=== PATIENT | female | born 1940 | race Hispanic/Latino ===

== ENCOUNTER 2019-02-27 10:39 | Inpatient (IN) | payer OTHER ==
[2019-02-27 11:07] LABS: Urine Blood TRACE (NEG); Urine Glucose NEGATIVE (NEG); Urine Protein NEGATIVE (NEG); Urine Specific Gravity 1.015 (1.005-1.030)
[2019-02-27 11:13] LABS: Urine Bacteria >50 /HPF (<20); Urine Culture Reflex Order NOT NEEDED
[2019-02-27] MEDS ORDERED: NA CHLORIDE 0.9% 500 ML ONE (11:15)
[2019-02-27 11:28] LABS: Absolute Lymphocytes (CBC) 2.2 K/uL (0.7-4.9); Basophils % 0.5 % (0-1.3); Eosinophils % 3.4 % (0-4.4); Hematocrit 29.8 % (36.0-45.0); Lymphocytes % 13.7 % (15.3-44.8); MPV 8.9 fL (7.6-11.3); Monocytes % 8.7 % (3.3-12.3); RBC Red Blood Cell Count 3.54 M/uL (3.86-4.86)
[2019-02-27 11:42] LABS: Potassium 3.7 mmol/L (3.5-5.1)
[2019-02-27] MEDS ORDERED: CEFTRIAXONE/SWI 1gm 1 GM/10 ML SYR ONE (11:50)
--- NOTE | 2019-02-27 12:16 | RAD REPORT ---
EXAM DESCRIPTION: USExtremjimbo Venous Uni Ltd02/27/2019 11:48 am CLINICAL HISTORY: left leg swelling. COMPARISON: None. FINDINGS: Left common femoral, superficial femoral, popliteal and posterior tibial veins are compre ssible and demonstrate augmentation. Doppler demonstrates good flow. Several left inguinal lymph nodes. The largest measures 2.4 centimeter short axis IMPRESSION: No evidence of deep venous thrombosis involving the left lower extremity. Left inguinal lymphadenopathy. Followup ultrasound in 1 month is recommended to assess stability/reso lution
--- NOTE | 2019-02-27 12:17 | RAD REPORT ---
EXAM DESCRIPTION: Dane Single View02/27/2019 11:27 am CLINICAL HISTORY: cough COMPARISON: none FINDINGS: The lungs appear clear of acute infiltrate. The heart is normal size IMPRESSION: No acute abnormalities displayed
--- NOTE | 2019-02-27 13:16 | EDPHYS ---
Physician Documentation [facility] Name: Dot Berrios Age: 78 yrs Sex: Female : 1940 Arrival Date: 02/27/2019 Time: 10:46 Bed 7 Private MD: ED Physician Daryl Bernstein HPI: 02/27 10:48 This 78 yrs old Female presents to ER via Unassigned with complaints of fever. rn 10:48 The patient reports fever, not measured (subjective). Onset: The symptoms/episode rn began/occurred today. Modifying factors: there are no obvious modifying factors. Severity of symptoms: At their worst the symptoms were moderate in the emergency department the symptoms have improved. The patient has experienced similar episodes in the past. Reports woke up today weak, foul smelling urine, a little confused. Too weak to sit up in bed. Admitted 3 weeks ago in [place] for similar symptoms, told had UTI, got 3 days of IV rocephin and no abx orally. Reports mild headache, no focal neurological problems, no chest pain/sob. + cough. No abd pain/vomiting/diarrhea. NO trauma. . Historical: - Allergies: 11:27 No Known Allergies; sv - Home Meds: 11:27 levothyroxine 75 mcg tab 1 tab once daily [Active]; Norvasc 5 mg Oral tab 1 tab once sv daily [Active]; captopril 25 mg Oral tab daily [Active]; B-Complex oral oral [Active]; metformin 500 mg Oral tr24 twice a day [Active]; - PMHx: 11:27 UTI; Diabetes - NIDDM; Hypertension; sv - PSHx: 11:27 hip repair; sv - Immunization history:: Adult Immunizations up to date. - Social history:: Smoking status: Patient/guardian denies using tobacco. - Family history:: not pertinent. - Ebola Screening: : No symptoms or risks identified at this time. - Hospitalizations: : Patient was recently seen at. ROS: 10:48 Constitutional: + fever Eyes: Negative for injury, pain, redness, and discharge, ENT: rn Negative for injury, pain, and discharge, Neck: Negative for injury, pain, and swelling, Cardiovascular: Negative for chest pain, palpitations, and edema, Respiratory: + cough Abdomen/GI: Negative for abdominal pain, nausea, vomiting, diarrhea, and constipation, Back: Negative for injury and pain, MS/Extremity: Negative for injury and deformity, Skin: Negative for injury, rash, and discoloration, Neuro: + headache and generalized weakness Exam: 10:48 Constitutional: This is a well developed, well nourished patient who is awake, alert rn Head/Face: Normocephalic, atraumatic. Eyes: Pupils equal round and reactive to light, extra-ocular motions intact. Lids and lashes normal. Conjunctiva and sclera are non-icteric and not injected. Cornea within normal limits. Periorbital areas with no swelling, redness, or edema. ENT: MMM Neck: Trachea midline, no thyromegaly or masses palpated, and no cervical lymphadenopathy. Supple, full range of motion without nuchal rigidity, or vertebral point tenderness. No Meningismus. Cardiovascular: Regular rate and rhythm. No pulse deficits. Respiratory: Lungs have equal breath sounds bilaterally, clear to auscultation Abdomen/GI: soft, non-tender MS/ Extremity: Pulses equal, no cyanosis. Neurovascular intact. Full, normal range of motion. + LLE swelling and erythema with blanching (daughter states not too far from baseline) Neuro: Awake and alert, GCS 15, oriented to person, place, time, and situation. Moves all 4 extremities with equal strength. Vital Signs: 10:51 BP 123 / 52; Pulse 94; Resp 24; Temp 98.4; Pulse Ox 95% ; Weight 68.95 kg; Height 5 ft. sv 4 in. (162.56 cm); Pain 0/10; 11:39 BP 119 / 59; Pulse 90; Resp 25; Pulse Ox 96% on R/A; sv 12:31 BP 125 / 58; Pulse 89; Resp 22; Pulse Ox 97% ; ss 13:03 BP 121 / 52; Pulse 85; Resp 21; Pulse Ox 96% ; sv 14:12 BP 129 / 67; Pulse 84; Resp 20; Pulse Ox 96% ; sv 10:51 Body Mass Index 26.09 (68.95 kg, 162.56 cm) sv MDM: 10:46 Patient medically screened. rn 10:52 ED course: Daughter gave tylenol prior to arrival.. rn 11:14 ED course: Pt reports stopped taking sotalol prior to surgery per recommendations, and rn hasn't taken since February 07.. 13:13 Differential diagnosis: viral Infection, bacterial infection, UTI. Data reviewed: vital rn signs, nurses notes, lab test result(s), radiologic studies, doppler, plain films. Counseling: I had a detailed discussion with the patient and/or guardian regarding: the historical points, exam findings, and any diagnostic results supporting the discharge/admit diagnosis, lab results, radiology results, the need for further work-up and treatment in the hospital. Admission orders: after a detailed discussion of the patient's condition and case, the admit orders are written by me. ED course: Pt with delirium due to UTI, weakness, will admit for IV abx. U/S of leg negative. 2 family members state erythema of leg is actually better than has been in past. Neg cxr.. 02/27 10:48 Order name: CBC with Diff 02/27 10:48 Order name: Basic Metabolic Panel 02/27 10:48 Order name: Urine Culture 02/27 10:48 Order name: Urine Microscopic Only 02/27 10:48 Order name: Flu; Complete Time: 12:35 02/27 10:48 Order name: Strep; Complete Time: 12:35 02/27 10:48 Order name: Procalcitonin; Complete Time: 12:35 02/27 10:48 Order name: Blood Culture Adult (2) 02/27 10:49 Order name: CBC with Automated Diff; Complete Time: 11:52 [facility] 02/27 10:49 Order name: Basic Metabolic Panel; Complete Time: 11:52 EDPA 02/27 10:50 Order name: Urine Culture [facility] 02/27 10:50 Order name: Urine Microscopic Only; Complete Time: 11:27 EDPA 02/27 10:55 Order name: Lactate; Complete Time: 11:52 sv 02/27 10:59 Order name: Urine Dipstick--Ancillary (enter results); Complete Time: 11:27 eb 02/27 10:48 Order name: IV Start; Complete Time: 10:56 02/27 10:48 Order name: Urine Dipstick-Ancillary (obtain specimen); Complete Time: 10:56 02/27 10:48 Order name: XRAY Chest (1 view); Complete Time: 12:35 02/27 10:48 Order name: Glucose Level; Complete Time: 11:19 rn 02/27 10:52 Order name: Extremity Venous Uni Ltd US; Complete Time: 12:35 rn 02/27 11:18 Order name: Glucose, Ancillary Testing; Complete Time: 11:27 EDMS 02/27 11:19 Order name: Glucose, Ancillary Testing EDMS 02/27 12:14 Order name: Throat Culture EDMS Administered Medications: 11:18 Drug: NS 0.9% 500 ml Route: IV; Rate: bolus; Site: left hand; sv 12:15 Follow up: Response: No adverse reaction; IV Status: Completed infusion; IV Intake: sv 500ml 11:37 Drug: Rocephin - (cefTRIAXone) 1 grams Route: IVPB; Infused Over: 30 mins; Site: left sv hand; 11:39 Follow up: Response: No adverse reaction; IV Status: Completed infusion; IV Intake: 10mlsv Point of Care Testing: Blood Glucose: 11:00 Blood Glucose: 118 mg/dL; sv Ranges: Critical Glucose Levels:Adult <50 mg/dl or >400 mg/dl <40 mg/dl or >180 mg/dl Disposition: 02/27/19 13:15 Hospitalization ordered by Saud Ryder for Inpatient Admission. Preliminary diagnosis are Urinary tract infection, site not specified, Delirium due to known physiological condition, Weakness. - Bed requested for Telemetry/MedSurg (Inpatient). - Status is Inpatient Admission. sv - Condition is Stable. - Problem is new. - Symptoms have improved. UTI on Admission? Yes Signatures: Dispatcher [employer] EDPA Teri Hooks RN RN sv Nieto, Roman, MD MD rn Aguilar, Jose, RN RN ja1 Corrections: (The following items were deleted from the chart) 14:11 13:15 Hospitalization Ordered by Saud Ryder MD for Inpatient Admission. Preliminary ja1 diagnosis is Urinary tract infection, site not specified; Delirium due to known physiological condition; Weakness. Bed requested for Telemetry/MedSurg (Inpatient). Status is Inpatient Admission. Condition is Stable. Problem is new. Symptoms have improved. UTI on Admission? Yes. rn 14:28 14:11 02/27/2019 13:15 Hospitalization Ordered by Saud Ryder MD for Inpatient sv Admission. Preliminary diagnosis is Urinary tract infection, site not specified; Delirium due to known physiological condition; Weakness. Bed requested for Telemetry/MedSurg (Inpatient). Status is Inpatient Admission. Condition is Stable. Problem is new. Symptoms have improved. UTI on Admission? Yes. ja1
--- NOTE | 2019-02-27 13:16 | ER ---
Nurse's Notes [facility] Name: Dot Berrios Age: 78 yrs Sex: Female : 1940 Arrival Date: 02/27/2019 Time: 10:46 Bed 7 Private MD: Diagnosis: Urinary tract infection, site not specified;Delirium due to known physiological condition;Weakness Presentation: 02/27 10:36 Presenting complaint: EMS states: called out for fever, upon EMS arrival pt had foul sv smelling urine and is incontinent. Pt on immunotherapy for LLE melanoma and has hx of UTIs. Transition of care: patient was not received from another setting of care. Onset of symptoms was February 27, 2019. Risk Assessment: Do you want to hurt yourself or someone else? Patient reports no desire to harm self or others. Initial Sepsis Screen: Does the patient meet any 2 criteria? No. Patient's initial sepsis screen is negative. Does the patient have a suspected source of infection? No. Patient's initial sepsis screen is negative. Care prior to arrival: Medication(s) given: Normal saline infusion, 100 mls IV initiated. 22 GA, in the left hand. 10:36 Method Of Arrival: EMS: [facility] sv 10:36 Acuity: STEPHANI 3 sv Historical: - Allergies: 11:27 No Known Allergies; sv - Home Meds: 11:27 levothyroxine 75 mcg tab 1 tab once daily [Active]; Norvasc 5 mg Oral tab 1 tab once sv daily [Active]; captopril 25 mg Oral tab daily [Active]; B-Complex oral oral [Active]; metformin 500 mg Oral tr24 twice a day [Active]; - PMHx: 11:27 UTI; Diabetes - NIDDM; Hypertension; sv - PSHx: 11:27 hip repair; sv - Immunization history:: Adult Immunizations up to date. - Social history:: Smoking status: Patient/guardian denies using tobacco. - Family history:: not pertinent. - Ebola Screening: : No symptoms or risks identified at this time. - Hospitalizations: : Patient was recently seen at. Screenin:28 Abuse screen: Denies threats or abuse. Denies injuries from another. Nutritional sv screening: No deficits noted. Tuberculosis screening: No symptoms or risk factors identified. Fall Risk None identified. Assessment: 10:36 General: Appears in no apparent distress. comfortable, well developed, Behavior is sv calm, cooperative, appropriate for age. General: Reports fever for 12-24 hours. Pain: Denies pain. Neuro: Level of Consciousness is awake, alert, obeys commands, Oriented to person, place, time, situation, Moves all extremities. Full function Speech is normal. Respiratory: Respiratory effort is even, unlabored, Respiratory pattern is regular, symmetrical. : Parent/caregiver report the patient having incontinence which is her normal. Derm: Skin is pink, warm \T\ dry. 11:39 Reassessment: Patient appears in no apparent distress at this time. No changes from sv previously documented assessment. Ultrasound at the bedside. 13:30 Reassessment: Patient appears in no apparent distress at this time. No changes from sv previously documented assessment. Patient and/or family updated on plan of care and expected duration. Pain level reassessed. Patient is alert, oriented x 3, equal unlabored respirations, skin warm/dry/pink. 14:15 Reassessment: Patient appears in no apparent distress at this time. No changes from sv previously documented assessment. Patient and/or family updated on plan of care and expected duration. Pain level reassessed. Patient is alert, oriented x 3, equal unlabored respirations, skin warm/dry/pink. Vital Signs: 10:51 BP 123 / 52; Pulse 94; Resp 24; Temp 98.4; Pulse Ox 95% ; Weight 68.95 kg; Height 5 ft. sv 4 in. (162.56 cm); Pain 0/10; 11:39 BP 119 / 59; Pulse 90; Resp 25; Pulse Ox 96% on R/A; sv 12:31 BP 125 / 58; Pulse 89; Resp 22; Pulse Ox 97% ; ss 13:03 BP 121 / 52; Pulse 85; Resp 21; Pulse Ox 96% ; sv 14:12 BP 129 / 67; Pulse 84; Resp 20; Pulse Ox 96% ; sv 10:51 Body Mass Index 26.09 (68.95 kg, 162.56 cm) sv ED Course: 10:36 Maintain EMS IV. Dressing intact. Site clean \T\ dry. Gauge \T\ site: 22G left hand. sv 10:45 Straight cath inserted, using sterile technique, 16 Fr. Specimen obtained. Returned sv clear yellow urine. Patient tolerated well. 10:46 Patient arrived in ED. rn 10:46 Daryl Bernstein MD is Attending Physician. rn 10:53 Teri Hooks RN is Primary Nurse. sv 11:00 Initial lab(s) drawn, by me, sent to lab. First set of blood cultures drawn by me. sv 11:00 Arm band placed on. sv 11:00 Patient has correct armband on for positive identification. Placed in gown. Bed in low sv position. Call light in reach. Side rails up X2. Adult w/ patient. desk monitor on. Pulse ox on. NIBP on. Door closed. Head of bed elevated. 11:15 Second set of blood cultures drawn by me, Flu and/or RSV swab sent to lab. Strep swab sv sent to lab. 11:19 Urine Culture Sent. sv 11:19 Urine Microscopic Only Sent. sv 11:19 Basic Metabolic Panel Sent. sv 11:19 CBC with Diff Sent. sv 11:23 Triage completed. sv 11:28 XRAY Chest (1 view) In Process Unspecified. EDMS 11:30 Awaiting lab results, Awaiting radiology results. sv 11:32 Glucose, Ancillary Testing Sent. sv 11:47 Ultrasound completed. Patient tolerated well. sg3 11:48 Extremity Venous Uni Ltd US In Process Unspecified. EDMS 12:40 Throat Culture Sent. sv 13:15 Saud Ryder MD is Hospitalizing Provider. rn 13:22 Awaiting bed assignment. sv 14:17 No provider procedures requiring assistance completed. Patient admitted, IV remains in sv place. intact. Administered Medications: 11:18 Drug: NS 0.9% 500 ml Route: IV; Rate: bolus; Site: left hand; sv 12:15 Follow up: Response: No adverse reaction; IV Status: Completed infusion; IV Intake: sv 500ml 11:37 Drug: Rocephin - (cefTRIAXone) 1 grams Route: IVPB; Infused Over: 30 mins; Site: left sv hand; 11:39 Follow up: Response: No adverse reaction; IV Status: Completed infusion; IV Intake: 10mlsv Point of Care Testing: Blood Glucose: 11:00 Blood Glucose: 118 mg/dL; sv Ranges: Intake: 11:39 IV: 10ml; Total: 10ml. sv 12:15 IV: 500ml; Total: 510ml. sv Outcome: 13:15 Decision to Hospitalize by Provider. rn 14:18 Admitted to Tele accompanied by tech, family with patient, via stretcher, room 425, sv with chart, Report called to Ricardo Sin RN 14:18 Condition: stable 14:18 Instructed on the need for admit. 14:28 Patient left the ED. sv Signatures: Dispatcher [employer] Teri Schaefer RN RN sv Nieto, Roman, MD MD rn Smirch, Shelby, RN RN Odalis Goldsmith [facility]
[2019-02-27 14:25] VITALS: BMI 26.1
[2019-02-27] MEDS ORDERED: ONDANSETRON 4 MG/2 ML VIAL IV PRN (14:45)
[2019-02-27] MEDS ORDERED: D50W 25 GM/50 ML SYRINGE IV PRN (14:45)
[2019-02-27] MEDS ORDERED: GLUCAGON 1 MG/VIAL IM PRN (14:45)
[2019-02-27] MEDS: ENOXAPARIN 40 MG/0.4 ML SQ SCH (16:13)
[2019-02-27] MEDS: NA CHLORIDE 0.9% 1,000 ML IV SCH (16:14)
[2019-02-27] MEDS: VANCOMYCIN 1.25 GM in NA CHLORIDE 0.9% 250 ML IVPB SCH (16:14)
[2019-02-27] MEDS: INSULIN -REGULAR HUMAN 50 UNIT/0.5 ML ML SQ SCH ×2 (16:16→21:00)
[2019-02-27] MEDS ORDERED: POTASSIUM CL SA 10 MEQ TAB PO ONE (18:12)
--- NOTE | 2019-02-27 20:10 | EKG ---
Test Date: 2019-02-27 Test Time: 11:14:50 Switchboard Mechanic: SOCORRO MEASUREMENT RESULTS: Intervals: Rate: 92 NJ: 148 QRSD: 88 QT: 374 QTc: 462 [place]: P: 63 NJ: 148 QRS: 105 T: 58 INTERPRETIVE STATEMENTS: Normal sinus rhythm Possible Right ventricular hypertrophy Abnormal ECG No previous ECG available for comparison Electronically Signed On 02-27-19 20:08:31 CDT by David Bragg
[2019-02-27] MEDS ORDERED: VANCOMYCIN 1.5 GM in NA CHLORIDE 0.9% 500 ML IVPB SCH (21:00)
[2019-02-27] MEDS ORDERED: CEFEPIME 2 GM in NA CHLORIDE 0.9% 100 ML IV SCH (21:00)
[2019-02-27] MEDS: AMLODIPINE 5 MG TAB PO SCH (21:19)
[2019-02-27] MEDS: CEFEPIME/SWI 2gm 2 GM/20 ML SYR IVP SCH (21:20)
--- NOTE | 2019-02-28 01:46 | HP ---
Date of Admission: 02/27/2019 Chief Complaint: Altered mental status, UTI. Code Status: Full. History Of Present Illness: The patient is a 78-year-old female with past medical history of hypertension; diabetes, non-insulin requiring; melanoma with recent immune therapy and surgery with recent PET scan showing improvement. The patient's melanoma has spread to the lymph nodes. The patient is visiting from [place], was found to have acute onset of altered mental status, foul smelling urine, generalized weakness, some cough with clear sputum production and some nausea. No vomiting. The patient did have some fever and chills. The patient's workup revealed white blood cell count of 16,000. Her lactate was negative. There were no signs of sepsis. Her electrolytes were normal. UA was positive. The patient was then started on Rocephin and referred for admission. The patient's symptoms were constant, moderate, progressively worsening. When seen in the ER, she was awake, alert, oriented x2, some mild distress. Elderly female, ill appearing. Past Medical History: Hypertension, diabetes mellitus type 2. 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 Surgical History: The patient has had resection of a smaller melanoma on the foot and left hip replacement. Medications: List reviewed. Allergies: NO KNOWN DRUG ALLERGIES. Social History: The patient has good social support. Lives out of town. Currently visiting her son. Denies any tobacco use, alcohol use. Does not require any assistive ambulatory devices. Does use a cane or walker for longer distances. Family History: The patient denies any significant family history. No history of premature coronary artery disease. Review of Systems: Ten-point system reviewed, negative except as per HPI. Physical Examination: Vital Signs: Blood pressure 123/52, pulse 94, respirations 24, temperature 98.4 , O2 95% on room air. General: Awake, alert, oriented x2. Mildly confused elderly female, ill appearing. HEENT: Normocephalic, atraumatic. PERRLA. EOMI. Dry mucous membranes. Oropharynx is clear. Conjunctivae are anicteric. Poor dentition. Neck: Supple. No JVD. Trachea midline. CV: S1, S2. Regular rate and rhythm. Peripheral pulses present. Respiratory: Moving air well bilaterally. No wheezing or stridor. No use of accessory muscles. Gastrointestinal: Abdomen is soft. Minimal tenderness in the epigastric region. No rebound or guarding. Positive bowel sounds. Extremities: No clubbing, cyanosis, or edema. No calf tenderness. Neuro: Cranial nerves 2 through 12 intact grossly. No focal neurological deficit. Speech is normal. Skin: The patient has left foot bandaged with blood soaking through. Has multiple sites of melanoma around the left lower extremity. Psych: Unable to properly assess due to patient's medical condition. Laboratory Data: UA: Trace blood, positive nitrite, 3+ leukocyte esterase, 10 to 20 rbc's, greater than 50 wbc, greater than 50 bacteria. Sodium 140, potassium 2.7, chloride 107, CO2 25, BUN 13, creatinine 0.66, glucose 97, lactate 0.9, calcium 8.8, procalcitonin less than 0.05. WBC 16.4, H and H 9.9 and 29.8, platelets 347, neutrophils 73%. Blood cultures pending. Strep screen is negative. Influenza screen also negative. Imaging Studies: Chest x-ray personally reviewed shows no acute abnormalities. Doppler venous study shows no DVT in the left lower extremity. Assessment And Plan: A 78-year-old female with: 1. Acute metabolic encephalopathy, likely due to urinary tract infection, improving. 2. Generalized weakness. We will obtain PT consultation. 3. Acute cystitis with hematuria. We will start on IV antibiotics. We will obtain cultures. 4. Left lower extremity cellulitis. The patient has erythema, warm to touch, likely related to her wounds on the left foot. We will have nurse re-dress the wound. Obtain cultures including wound cultures if there is any drainage. Elevate, ice as needed. 5. Normocytic normochromic anemia, likely anemia of chronic disease. 6. Diabetes mellitus type 2, non-insulin requiring without complications. We will continue with sliding scale insulin and monitor Accu-Cheks. 7. Essential hypertension. We will resume home medications as appropriate. 8. History of recurrent metastatic melanoma, undergoing immune therapy. Recent PET scan showed improvement in lesions. 9. Deep venous thrombosis prophylaxis with Lovenox. Plan: Admit the patient to Med-Surg, place as inpatient. Length of stay greater than 2 midnights. ELENA Voice ID: [id number] [facility]
[2019-02-28 04:28] LABS: Absolute Lymphocytes (CBC) 2.4 K/uL (0.7-4.9); Basophils % 1.2 % (0-1.3); Eosinophils % 5.1 % (0-4.4); Hematocrit 28.5 % (36.0-45.0); Lymphocytes % 20.5 % (15.3-44.8); MPV 9.3 fL (7.6-11.3); Monocytes % 10.6 % (3.3-12.3); RBC Red Blood Cell Count 3.37 M/uL (3.86-4.86)
[2019-02-28 05:00] LABS: ALT/SGPT 13 U/L (12-78); AST/SGOT 20 U/L (15-37); Albumin 2.6 g/dL (3.4-5.0); Alkaline Phosphatase 68 U/L (45-117); BUN Blood Urea Nitrogen 8 mg/dL (7-18); Bicarbonate 22 mmol/L (21-32); Bilirubin Total 0.3 mg/dL (0.2-1.0); Glucose Level 86 mg/dL (74-106); Potassium 3.9 mmol/L (3.5-5.1); Protein, Total 6.5 g/dL (6.4-8.2); Sodium Level 138 mmol/L (136-145)
[2019-02-28] MEDS: LEVOTHYROXINE SOD 0.075 MG TAB PO SCH (05:13)
[2019-02-28] MEDS: NA CHLORIDE 0.9% 1,000 ML IV SCH ×3 (05:15→23:10)
[2019-02-28] MEDS ORDERED: MAGNESIUM SULFATE 1 gm IVPB 1 GM/100 ML BAG IV ONE (05:50)
[2019-02-28] MEDS ORDERED: POTASSIUM CL SA 10 MEQ TAB PO ONE (05:51)
[2019-02-28] MEDS: INSULIN -REGULAR HUMAN 50 UNIT/0.5 ML ML SQ SCH ×4 (07:30→21:00)
[2019-02-28] MEDS: CAPTOPRIL 25 MG TABLET PO SCH (08:48)
[2019-02-28] MEDS: ENOXAPARIN 40 MG/0.4 ML SQ SCH (08:48)
[2019-02-28] MEDS: CEFEPIME/SWI 2gm 2 GM/20 ML SYR IVP SCH ×2 (09:01→21:39)
[2019-02-28] MEDS: VANCOMYCIN 1.25 GM in NA CHLORIDE 0.9% 250 ML IVPB SCH (10:13)
--- NOTE | 2019-02-28 20:32 | PN ---
Date of Progress Note: 02/28/2019 Subjective: Patient seen and examined. Chart reviewed and case discussed with RN. Family at the [facility]. Patient's condition has improved overnight. No specific complaints. Her mental status has i mproved. Medications: List reviewed. Physical Examination: Vital Signs: Temperature 97.1, heart rate 91, blood pressure 154/64, respirations 19, O2 of 96% on r oom air. General: Awake, alert, oriented x3, not in any acute distress, elderly female. CV: S1, S2. Regular rate and rhythm. Peripheral pulses present. Respiratory: Moving air well bilaterally. No wheezing or stridor. Gastrointestinal: Abdomen is soft, nontender, nondistended. Positive bowel sounds. Extremities: No clubbing, cyanosis. Patient has edema of the left lower extremity. Skin: Erythema of the left lower extremity with some warmth to touch. Patient also has large cancer ous lesions on her legs covered with Vaseline gauze. Neurologic: Nonfocal. Cranial nerves 2-12 intact grossly. Laboratory Data: Sodium 138, potassium 3.9, chloride 108, CO2 of 22, BUN 8, creatinine 0.48, glucose 86, calcium 8.5, magnesium 1.6, albumin 2.6. WBC 11.9, H and H 9.4 and 28.5, platelets 328, neutrop hils 62%. Blood cultures are pending. Urine cultures growing out gram-negative rods. Assessment And Plan: A 78-year-old female with: 1.Acute metabolic encephalopathy, likely secondary to urinary tract infection, improved. 2.Generalized weakness improving. We will consult PT. 3.Acute cystitis with hematuria. We will continue IV antibiotics. Cultures are growing out gram-ne gative rods. 4.Left lower extremity cellulitis, improving. Follow up on blood cultures elevate. 5.Normocytic normochromic anemia, likely anemia of chronic disease. 6.Hypomagnesemia. We will replace and monitor. 7.Diabetes mellitus type 2, non-insulin requiring without complications. We will continue sliding s fadia insulin and monitor Accu-Cheks. 8.Essential hypertension, stable. 9.History of metastatic melanoma of the left lower extremity, currently undergoing immune therapy. Follows at [facility]. 10.Deep venous thrombosis prophylaxis with Lovenox. Plan: Continue IV antibiotics. White blood cell count is improving. We will follow up on culture, ID and sensitivities. Likely discharge in the next 24-48 hours depending on clinical response. SA/MODL Voice ID: [id number] Report ID: [id number]
[2019-02-28] MEDS: AMLODIPINE 5 MG TAB PO SCH (21:39)
[2019-03-01] MEDS: VANCOMYCIN 1.25 GM in NA CHLORIDE 0.9% 250 ML IVPB SCH ×2 (03:29→22:55)
[2019-03-01] MEDS: ACETAMINOPHEN 500 MG TAB PO PRN ×3 (03:53→17:56)
[2019-03-01 05:09] LABS: Absolute Lymphocytes (CBC) 2.9 K/uL (0.7-4.9); Basophils % 0.3 % (0-1.3); Eosinophils % 6.9 % (0-4.4); Hematocrit 30.4 % (36.0-45.0); Lymphocytes % 30.2 % (15.3-44.8); MPV 9.4 fL (7.6-11.3); Monocytes % 10.6 % (3.3-12.3); RBC Red Blood Cell Count 3.58 M/uL (3.86-4.86)
[2019-03-01 05:18] LABS: ALT/SGPT 13 U/L (12-78); AST/SGOT 19 U/L (15-37); Albumin 2.7 g/dL (3.4-5.0); Alkaline Phosphatase 69 U/L (45-117); BUN Blood Urea Nitrogen 7 mg/dL (7-18); Bicarbonate 23 mmol/L (21-32); Bilirubin Total 0.3 mg/dL (0.2-1.0); Glucose Level 103 mg/dL (74-106); Magnesium 1.8 mg/dL (1.8-2.4); Protein, Total 6.7 g/dL (6.4-8.2); Sodium Level 139 mmol/L (136-145)
[2019-03-01] MEDS ORDERED: MAGNESIUM SULFATE 1 gm IVPB 1 GM/100 ML BAG IV ONE (06:03)
[2019-03-01] MEDS: LEVOTHYROXINE SOD 0.075 MG TAB PO SCH (06:23)
[2019-03-01] MEDS: NA CHLORIDE 0.9% 1,000 ML IV SCH ×2 (06:45→17:47)
[2019-03-01] MEDS: INSULIN -REGULAR HUMAN 50 UNIT/0.5 ML ML SQ SCH ×4 (07:30→20:15)
[2019-03-01] MEDS: ENOXAPARIN 40 MG/0.4 ML SQ SCH (09:37)
[2019-03-01] MEDS: CAPTOPRIL 25 MG TABLET PO SCH (09:37)
[2019-03-01] MEDS: CEFEPIME/SWI 2gm 2 GM/20 ML SYR IVP SCH ×2 (09:38→21:44)
[2019-03-01] MEDS: AMLODIPINE 5 MG TAB PO SCH (21:44)
--- NOTE | 2019-03-01 22:17 | P.PN ---
Subjective Date of Service: 03/01/19 Patient seen and examined at bedside. Daughter at bedside. Chart reviewed and case discussed with nursing staff. Patient in no acute distress. Sitting up in bed, eating. Reports improved appetite. No concerns complaints this morning. States that she is doing better overall. Patient did stand with physical therapy, melanotic lesion left lower extremity noted to profusely bleed when patient stood up to work with physical therapy. Review of Systems 10-point ROS is otherwise unremarkable Physical Examination - Vital Signs Temperature: 97.2 F Blood Pressure: 118/66 Pulse: 75 Respirations: 18 Pulse Ox (%): 97 - Physical Exam General: Alert, In no apparent distress, Oriented x3 HEENT: Atraumatic, PERRLA, EOMI Neck: Supple, JVD not distended Respiratory: Clear to auscultation bilaterally, Normal air movement Cardiovascular: Regular rate/rhythm, Normal S1 S2 Gastrointestinal: Normal bowel sounds, No tenderness Musculoskeletal: No tenderness Integumentary: No rashes, Other (Melanotic lesions noted on left lower extremity , fresh red blood noted. Cellulitis of left lower extremity) Neurological: Normal speech, Normal tone, Normal affect Lymphatics: No axilla or inguinal lymphadenopathy - Studies Microbiology Data (last 24 hrs): 02/27/19 11:00 Throat Culture & Sensitivity - Final 02/27/19 11:00 Catheterized Urine [place] Count - Final >100,000 CFU/ML. 02/27/19 11:00 Catheterized Urine - Final Escherichia Coli Assessment And Plan - Plan A 78-year-old female with: 1. Acute metabolic encephalopathy, likely secondary to urinary tract infection , resolved. 2. Generalized weakness improving. Working well with physical therapy 3. Acute cystitis with hematuria. We will continue IV antibiotics. Cultures positive for E. coli, sensitive to oral antibiotics. 4. Left lower extremity cellulitis, improving. Wound cultures positive for Proteus mirabilis. Blood cultures negative. 5. Normocytic normochromic anemia, likely anemia of chronic disease. 6. Hypomagnesemia. We will replace and monitor. 7. Diabetes mellitus type 2, non-insulin requiring without complications. We will continue sliding scale insulin and monitor Accu-Cheks. 8. Essential hypertension, stable. 9. History of metastatic melanoma of the left lower extremity, currently undergoing immune therapy. Follows at [facility]. 10. Deep venous thrombosis prophylaxis with Lovenox. Plan: Continue IV antibiotics, will switch to oral antibiotics on discharge. White blood cell count is improving. We will follow up on culture, ID and sensitivities. Likely discharge in the next 24 hours depending on clinical response.
[2019-03-02] MEDS: LEVOTHYROXINE SOD 0.075 MG TAB PO SCH (06:34)
[2019-03-02 07:00] LABS: Absolute Lymphocytes (CBC) 2.5 K/uL (0.7-4.9); Hematocrit 29.2 % (36.0-45.0); Lymphocytes % 30.3 % (15.3-44.8); MPV 8.8 fL (7.6-11.3); RBC Red Blood Cell Count 3.43 M/uL (3.86-4.86)
[2019-03-02 07:12] LABS: ALT/SGPT 14 U/L (12-78); AST/SGOT 21 U/L (15-37); Albumin 2.6 g/dL (3.4-5.0); Alkaline Phosphatase 66 U/L (45-117); BUN Blood Urea Nitrogen 8 mg/dL (7-18); Bicarbonate 22 mmol/L (21-32); Bilirubin Total 0.2 mg/dL (0.2-1.0); Glucose Level 128 mg/dL (74-106); Magnesium 1.7 mg/dL (1.8-2.4); Potassium 3.9 mmol/L (3.5-5.1); Protein, Total 6.5 g/dL (6.4-8.2); Sodium Level 141 mmol/L (136-145)
[2019-03-02] MEDS: INSULIN -REGULAR HUMAN 50 UNIT/0.5 ML ML SQ SCH ×2 (07:30→11:30)
[2019-03-02] MEDS: NA CHLORIDE 0.9% 1,000 ML IV SCH (09:12)
[2019-03-02] MEDS: CEFEPIME/SWI 2gm 2 GM/20 ML SYR IVP SCH (09:12)
[2019-03-02] MEDS: CAPTOPRIL 25 MG TABLET PO SCH (09:12)
[2019-03-02] MEDS ORDERED: POTASSIUM CL SA 10 MEQ TAB PO ONE (09:58)
[2019-03-02] MEDS ORDERED: MAGNESIUM SULFATE 1 gm IVPB 1 GM/100 ML BAG IV ONE (10:01)
[2019-03-02 12:13] VITALS: O2SAT 94
[2019-03-02 16:36] VITALS: BP 118/66; TEMP 97.2
--- NOTE | 2019-03-02 16:47 | P.DS ---
Admission Date: 02/27/19 Discharge Date: 03/02/19 Disposition: ROUTINE DISCHARGE Discharge Condition: GOOD Brief History of Present Illness: The patient is a 78-year-old female with past medical history of hypertension; diabetes, non-insulin requiring; melanoma with recent immune therapy and surgery with recent PET scan showing improvement. The patient's melanoma has spread to the lymph nodes. The patient is visiting from [place], was found to have acute onset of altered mental status, foul smelling urine, generalized weakness, some cough with clear sputum production and some nausea. No vomiting. The patient did have some fever and chills. The patient's workup revealed white blood cell count of 16,000. Her lactate was negative. There were no signs of sepsis. Her electrolytes were normal. UA was positive. The patient was then started on Rocephin and referred for admission. The patient's symptoms were constant, moderate, progressively worsening. When seen in the ER , she was awake, alert, oriented x2, some mild distress. Elderly female, ill appearing. Hospital Course: Patient was admitted for acute metabolic encephalopathy, secondary to UTI. She was started on IV antibiotics and supportive care. Physical therapy was also consulted for generalized weakness. Her urine culture positive for E. coli, sensitive to oral antibiotics. She also presented with left lower extremity cellulitis along with left lower extremity melanotic melanoma lesions. Her wound cultures were positive for Proteus mirabilis. IV antibiotics were adjusted to oral antibiotics on discharge. During this stay, patient melanotic lesions on her left lower extremity did have profuse bleeding when patient attempted to work with physical therapy. Dressing changes were done, bleeding was controlled. Patient's hemoglobin hematocrit remained stable throughout the stay. Prior to discharge, bleeding had ceased. She was alert and back to baseline as per family. She otherwise remained stable throughout the stay. Her diagnoses and treatment plan were explained to the family, all questions were answered. They verbalized understanding. Patient was then discharged home in a safe and stable manner. Patient lives in dialysis, she was encouraged the recommended to follow up with the primary care physician in [place]. She was also encouraged and recommended to follow up with a urologist for her recurring UTIs. [facility] mood metastatic melanoma as she has been. Vital Signs/Physical Exam: Temp Pulse Resp BP Pulse Ox 97.2 F 75 18 118/66 97 03/02/19 16:37 03/02/19 16:37 03/02/19 16:37 03/02/19 16:37 03/02/19 16:37 General: Alert, In no apparent distress HEENT: Atraumatic, PERRLA, EOMI Neck: Supple, JVD not distended Respiratory: Clear to auscultation bilaterally, Normal air movement Cardiovascular: Regular rate/rhythm, Normal S1 S2 Gastrointestinal: Normal bowel sounds, No tenderness Musculoskeletal: No tenderness Integumentary: No rashes, Other (Melanotic lesions noted on left lower extremity. Cellulitis of left lower extremity improved drastically.) Neurological: Normal speech, Normal tone, Normal affect Lymphatics: No axilla or inguinal lymphadenopathy Laboratory Data at Discharge: WBC 8.4 K/uL (4.3-10.9) 03/02/19 06:40 Hgb 9.6 g/dL (12.0-15.0) L 03/02/19 06:40 Hct 29.2 % (36.0-45.0) L 03/02/19 06:40 Plt Count 345 K/uL (152-406) 03/02/19 06:40 Sodium 141 mmol/L (136-145) 03/02/19 06:40 Potassium 3.9 mmol/L (3.5-5.1) 03/02/19 06:40 BUN 8 mg/dL (7-18) 03/02/19 06:40 Creatinine 0.52 mg/dL (0.55-1.3) L 03/02/19 06:40 Glucose 128 mg/dL (74-106) H 03/02/19 06:40 Magnesium 1.7 mg/dL (1.8-2.4) L 03/02/19 06:40 Total Bilirubin 0.2 mg/dL (0.2-1.0) 03/02/19 06:40 AST 21 U/L (15-37) 03/02/19 06:40 ALT 14 U/L (12-78) 03/02/19 06:40 Alkaline Phosphatase 66 U/L (45-117) 03/02/19 06:40 Home Medications: RX: Amlodipine [Norvasc*] 5 mg PO BEDTIME 02/27/19 RX: Captopril 25 mg PO DAILY 02/27/19 RX: Levothyroxine [Synthroid*] 75 mcg PO [id number] 02/27/19 RX: Metformin HCl 500 mg PO BID 02/27/19 Bismuth Tribromoph/Petrolatum [Xeroform 5"X9" Gauze Strip] 1 each TP 1X #15 bandage 03/02/19 RX: Metronidazole/Skin Cleansr #23 [[place] 0.75% Gel Kit] 1 each TP DAILY #1 kit.cl.gel 03/02/19 levoFLOXacin [Levaquin] 500 mg PO DAILY #7 tab 03/02/19 New Medications: Bismuth Tribromoph/Petrolatum [Xeroform 5"X9" Gauze Strip] 1 each TP 1X #15 bandage levoFLOXacin [Levaquin] 500 mg PO DAILY #7 tab RX: Metronidazole/Skin Cleansr #23 [[place] 0.75% Gel Kit] 1 each TP DAILY #1 kit.cl.gel Patient Discharge Instructions: Please follow up with your primary care physician in 2-3 days. Please discuss with your PCP regarding a urologist followup. New medication: Levaquin (antibiotic for urinary infection as well as skin infection). Please return to the Emergency room for worsening symptoms. Diet: Regular Activity: Ad justina Time spent managing pt's care (in minutes): 55
== END 2019-03-02 13:39 | disposition home or self-care (01) | DRG 689 ==
LOC: ER 10:39 → ERHOLD 13:33 → 4TH 14:19
PROVIDERS: ADMIT Family Medicine; ATTEND Family Medicine
DX: N30.01 Acute cystitis with hematuria (principal); G93.41 Metabolic encephalopathy; L03.116 Cellulitis of left lower limb; B96.20 Unspecified Escherichia coli [E. coli] as the cause of diseases classified elsewhere; B96.4 Proteus (mirabilis) (morganii) as the cause of diseases classified elsewhere; C43.72 Malignant melanoma of left lower limb, including hip; E83.42 Hypomagnesemia; D64.9 Anemia, unspecified
CPT/HCPCS: 36415; 51702; 71045; 80048; 80053; 80202; 81003; 81015; 82962; 83605; 83735; 84145; 85025; 87040; 87070; 87077; 87081; 87086; 87088; 87186; 87205; 87804; 93005; 93971; 94760; 96361; 96374; 97116; 97163; 97530; 99285; J0692; J0696; J1650; J3475; J7030

== ENCOUNTER 2019-03-04 21:47 | Observation (INO) | payer OTHER ==
--- NOTE | 2019-03-04 23:00 | RAD REPORT ---
EXAM DESCRIPTION: RAD - Humerus Right - 03/04/2019 10:54 pm CLINICAL HISTORY: Right arm pain status post fall FINDINGS: No fracture is seen. Osteoporosis
--- NOTE | 2019-03-04 23:04 | RAD REPORT ---
EXAM DESCRIPTION: RAD - Pelvis - 03/04/2019 10:54 pm CLINICAL HISTORY: Pelvic pain status post injury FINDINGS: No acute fracture or dislocation seen. Postsurgical changes involve the left hip. Osteoporosis If patient continues to have symptoms to suggest an acute fracture CT would be recommended
--- NOTE | 2019-03-04 23:05 | RAD REPORT ---
EXAM DESCRIPTION: RAD - Hip Right 2 View - 03/04/2019 10:55 pm CLINICAL HISTORY: Right hip pain FINDINGS: No acute fracture or dislocation seen. Osteoporosis If patient continues to have symptoms to suggest an acute fracture CT would be recommended
--- NOTE | 2019-03-04 23:08 | RAD REPORT ---
EXAM DESCRIPTION: [place] Single View03/04/2019 10:53 pm CLINICAL HISTORY: Chest pain COMPARISON: 02/27/2019 FINDINGS: The lungs appear clear of acute infiltrate. The heart is normal size IMPRESSION: No acute abnormalities displayed
[2019-03-04] MEDS ORDERED: ACETAMINOPHEN 325 MG TABLET ONE (23:37)
[2019-03-04] MEDS ORDERED: TRAMADOL HCL 50 MG TAB ONE (23:37)
[2019-03-04] MEDS ORDERED: ACETAMINOPHEN 500 MG TAB ONE (23:39)
[2019-03-05 02:23] LABS: Absolute Lymphocytes (CBC) 2.8 K/uL (0.7-4.9); Basophils % 0.5 % (0-1.3); Eosinophils % 6.1 % (0-4.4); Lymphocytes % 21.5 % (15.3-44.8); MPV 8.8 fL (7.6-11.3); Monocytes % 8.9 % (3.3-12.3); RBC Red Blood Cell Count 3.59 M/uL (3.86-4.86)
[2019-03-05] MEDS ORDERED: FENTANYL CITR 100 MCG/2 ML ONE ×2 (02:24→03:36)
[2019-03-05 02:25] LABS: Protime INR 1.21
[2019-03-05] MEDS ORDERED: ONDANSETRON 4 MG/2 ML VIAL IV PRN (03:16)
[2019-03-05] MEDS ORDERED: ACETAMINOPHEN 500 MG TAB PO PRN (03:16)
--- NOTE | 2019-03-05 03:21 | ER ---
Nurse's Notes [facility] Name: Dot Berrios Age: 78 yrs Sex: Female : 1940 Arrival Date: 03/04/2019 Time: 21:55 Bed 5 Private MD: Diagnosis: Fall on same level from slipping, tripping and stumbling;Nondisplaced right transverse process fractures of L1 thru L3 Presentation: 03/04 22:00 Presenting complaint: EMS states: patient fell on her right side. complaining of pain rv on her right hip and flank. denies LOC. does not take blood thinner. Transition of care: patient was not received from another setting of care. Onset of symptoms was March 04, 2019 at 21:00. Risk Assessment: Do you want to hurt yourself or someone else? Patient reports no desire to harm self or others. Initial Sepsis Screen: Does the patient meet any 2 criteria? No. Patient's initial sepsis screen is negative. Does the patient have a suspected source of infection? No. Patient's initial sepsis screen is negative. Care prior to arrival: None. 22:00 Method Of Arrival: EMS: [facility] rv 22:00 Acuity: STEPHANI 3 rv Historical: - Allergies: 22:05 No Known Allergies; rv - Home Meds: 22:05 B-Complex oral tab [Active]; captopril 25 mg Oral tab daily [Active]; levothyroxine 75 rv mcg tab 1 tab once daily [Active]; metformin 500 mg Oral tr24 twice a day [Active]; Norvasc 5 mg Oral tab 1 tab once daily [Active]; - PMHx: 22:05 Diabetes - NIDDM; Hypertension; UTI; Thyroid problem; rv 22:05 melanoma; rv - PSHx: 22:05 left hip surgery; rv - Immunization history:: Adult Immunizations up to date. - Social history:: Smoking status: Patient/guardian denies using tobacco, never smoked. - Ebola Screening: : No symptoms or risks identified at this time. Screenin:05 Abuse screen: Denies threats or abuse. Denies injuries from another. Nutritional rv screening: No deficits noted. Tuberculosis screening: No symptoms or risk factors identified. Fall Risk None identified. Assessment: 22:03 General: Appears in no apparent distress. uncomfortable, Behavior is calm, cooperative. rv Pain: Complains of pain in right side and right flank. Neuro: Level of Consciousness is awake, alert, obeys commands, Oriented to person, place, time, situation. Cardiovascular: Patient's skin is warm and dry. Respiratory: Airway is patent. GI: No signs and/or symptoms were reported involving the gastrointestinal system. : No signs and/or symptoms were reported regarding the genitourinary system. EENT: No signs and/or symptoms were reported regarding the EENT system. Derm: Skin is intact. Musculoskeletal: Reports pain in right hip. 03/05 00:00 Reassessment: Patient appears in no apparent distress at this time. Patient and/or rv family updated on plan of care and expected duration. Pain level reassessed. Patient is alert, oriented x 3, equal unlabored respirations, skin warm/dry/pink. patient is still in pain but able to ambulate with walker inside the room. 01:08 Reassessment: Patient appears in no apparent distress at this time. Patient and/or rv family updated on plan of care and expected duration. Pain level reassessed. Patient is alert, oriented x 3, equal unlabored respirations, skin warm/dry/pink. AWAITING CT SCAN RESULT. 03:20 Reassessment: Patient appears in no apparent distress at this time. Patient is alert, rr5 oriented x 3, equal unlabored respirations, skin warm/dry/pink. received awake conscious and coherent not in distress breathing spontaneously at room air. with IV cannula G22 at left forearm intact. for admission. patient complaining of back pain pain score of 6/10 ED provider aware with order made and carried out. 04:30 Reassessment: Patient appears in no apparent distress at this time. Patient and/or rr5 family updated on plan of care and expected duration. Pain level reassessed. eyes closed breathing spontaneously at room air. no complaints made. Vital Signs: 03/04 22:01 BP 142 / 56; Pulse 81; Resp 18; Temp 98.2; Pulse Ox 97% on R/A; Weight 68.95 kg; Height rv 5 ft. 4 in. (162.56 cm); Pain 10/10; 23:08 BP 137 / 52; Pulse 84; Resp 18; Pulse Ox 97% on R/A; rv 23:58 BP 134 / 50; Pulse 84; Resp 17; Temp 98; Pulse Ox 98% on R/A; rv 07 01:08 BP 116 / 51; Pulse 84; Resp 17; Pulse Ox 96% on R/A; rv 02:23 BP 131 / 56; Pulse 87; Resp 18; Pulse Ox 98% on R/A; rv 03:20 BP 155 / 75; Pulse 80; Resp 16; Temp 98.1; Pulse Ox 99% ; Pain 6/10; rr5 04:55 BP 142 / 53; Pulse 83; Resp 17; Temp 98.2; Pulse Ox 98% on R/A; rr5 03/04 22:01 Body Mass Index 26.09 (68.95 kg, 162.56 cm) rv ED Course: 03/04 21:55 Patient arrived in ED. rv 22:00 Del Goldberg, RN is Primary Nurse. rv 22:01 Triage completed. rv 22:03 Steve Macias PA is PHCP. cp 22:03 Jonathon Ruelas MD is Attending Physician. cp 22:05 Patient has correct armband on for positive identification. Bed in low position. Call rv light in reach. Side rails up X 1. Adult w/ patient. Pulse ox on. NIBP on. 22:53 XRAY Humerus RIGHT In Process Unspecified. EDMS 22:53 XRAY Pelvis In Process Unspecified. EDMS 22:54 XRAY Hip RIGHT 2 view In Process Unspecified. EDMS 22:54 XRAY Chest (1 view) In Process Unspecified. EDMS 23:09 Patient placed in the treatment room, on a stretcher, on pulse oximetry, Patient rv notified of wait time. 03/05 00:45 CT Chest Abdomen Pelvis W/O Contrast In Process Unspecified. EDMS 02:18 Inserted. Inserted saline lock: 22 gauge in left forearm, using aseptic technique. rv Blood collected. 03:19 Joey Amado MD is Hospitalizing Provider. cp 04:20 No provider procedures requiring assistance completed. Patient admitted, IV remains in rr5 place. intact, No redness/swelling at site. Administered Medications: 03/04 23:26 Drug: UltRAM 50 mg Route: PO; rv 23:58 Follow up: Response: Pain is decreased rv 23:26 Drug: Tylenol 500 mg Route: PO; rv 23:58 Follow up: Response: Pain is decreased rv 23:57 CANCELLED (changed dose): Tylenol 650 mg PO once rv 03/05 02:18 Drug: fentaNYL (PF) 25 mcg Route: IVP; Site: left forearm; rv 03:31 Follow up: Response: No adverse reaction rr5 03:30 Drug: fentaNYL (PF) 25 mcg Route: IVP; Site: left forearm; rr5 04:19 Follow up: Response: No adverse reaction rr5 03:30 Drug: NS 0.9% 250 ml Route: IV; Rate: bolus; Site: left forearm; rr5 03:58 Follow up: Response: No adverse reaction; IV Status: Completed infusion; IV Intake: rr5 250ml 03:58 Drug: NS 0.9% 1000 ml Route: IV; Rate: 75 ml/hr; Site: left forearm; rr5 04:19 Follow up: Response: No adverse reaction; IV Status: Infusion continued upon admission rr5 Intake: 03:58 IV: 250ml; Total: 250ml. rr5 Outcome: 03:21 Decision to Hospitalize by Provider. cp 04:57 Admitted to Med/surg accompanied by nurse, via stretcher, room 213, with chart, Report rr5 called to oni 04:57 Condition: stable 04:57 Instructed on the need for admit. 05:42 Patient left the ED. rr5 Signatures: Dispatcher [facility] EDFL Steve Macias PA PA cp Del Goldberg, RN RN rv Daren Knox, RN RN rr5 Corrections: (The following items were deleted from the chart) 03/04 23:57 23:26 Tylenol 650 mg PO rv rv 03/05 02:03/04 23:59 No provider procedures requiring assistance completed. rv rv 03/05 02:03/04 23:59 Patient did not have IV access during this emergency room visit. rv rv
--- NOTE | 2019-03-05 03:21 | EDPHYS ---
Physician Documentation [facility] Name: Dot Berrios Age: 78 yrs Sex: Female : 1940 Arrival Date: 03/04/2019 Time: 21:55 Bed 5 Private MD: ED Physician Jonathon Ruelas HPI: 03/04 22:25 This 78 yrs old Female presents to ER via EMS with complaints of fall. cp 22:25 Details of fall: The patient fell from an upright position, while walking, with use of cp walker. 22:25 Onset: The symptoms/episode began/occurred today. Associated injuries: The patient cp sustained injury to the chest, pain with movement, tenderness, right hip, painful injury. 22:25 Associated injuries: The patient sustained right upper arm, painful injury. cp 22:25 Severity of symptoms: in the emergency department the symptoms are unchanged, despite cp home interventions. Historical: - Allergies: 22:05 No Known Allergies; rv - Home Meds: 22:05 B-Complex oral tab [Active]; captopril 25 mg Oral tab daily [Active]; levothyroxine 75 rv mcg tab 1 tab once daily [Active]; metformin 500 mg Oral tr24 twice a day [Active]; Norvasc 5 mg Oral tab 1 tab once daily [Active]; - PMHx: 22:05 Diabetes - NIDDM; Hypertension; UTI; Thyroid problem; rv 22:05 melanoma; rv - PSHx: 22:05 left hip surgery; rv - Immunization history:: Adult Immunizations up to date. - Social history:: Smoking status: Patient/guardian denies using tobacco, never smoked. - Ebola Screening: : No symptoms or risks identified at this time. ROS: 22:33 Constitutional: Negative for body aches, chills, fever, poor PO intake. cp 22:33 Eyes: Negative for injury, pain, redness, and discharge. cp 22:33 ENT: Negative for drainage from ear(s), ear pain, sore throat, difficulty swallowing, difficulty handling secretions. 22:33 Neck: Negative for pain with movement, pain at rest, stiffness. 22:33 Cardiovascular: Positive for chest pain, of the right lower rib area, Negative for palpitations. 22:33 Respiratory: Negative for cough, shortness of breath, wheezing. 22:33 Abdomen/GI: Negative for abdominal pain, vomiting, diarrhea, constipation, black/tarry stool, rectal bleeding. 22:33 MS/extremity: Positive for pain, tenderness, of the right upper arm and right hip, Negative for deformity. 22:33 Neuro: Positive for weakness, Negative for altered mental status, headache, loss of consciousness, syncope. 22:33 All other systems are negative. Exam: 22:40 Constitutional: The patient appears in no acute distress, alert, awake, cp non-diaphoretic, non-toxic, well developed, well nourished, uncomfortable. 22:40 Head/Face: Normocephalic, atraumatic. cp 22:40 Eyes: Periorbital structures: appear normal, Conjunctiva: normal, no exudate, no injection, Sclera: no appreciated abnormality, Lids and lashes: appear normal, bilaterally. 22:40 ENT: External ear(s): are unremarkable, Nose: is normal, Mouth: Lips: moist, Oral mucosa: moist, Posterior pharynx: is normal, airway is patent. 22:40 Neck: C-spine: vertebral tenderness, is not appreciated, crepitus, is not appreciated, ROM/movement: pain, is not appreciated, limited range of motion, is not appreciated, nuchal rigidity, is not appreciated. 22:40 Chest/axilla: Inspection: normal, Palpation: crepitus, is not appreciated, tenderness, that is moderate, of the right lower anterior rib area. 22:40 Cardiovascular: Rate: normal, Rhythm: regular, Edema: ankle edema, that is moderate, left lower leg and ankle, JVD: is not appreciated. 22:40 Respiratory: the patient does not display signs of respiratory distress, Respirations: normal, no use of accessory muscles, no retractions, no splinting, no tachypnea, labored breathing, is not present, Breath sounds: are clear throughout, no decreased breath sounds, no stridor, no wheezing. 22:40 Abdomen/GI: Inspection: abdomen appears normal, Palpation: abdomen is soft and non-tender, in all quadrants, rebound tenderness, is not appreciated, voluntary guarding, is not appreciated, involuntary guarding, is not appreciated. 22:40 Musculoskeletal/extremity: Extremities: grossly normal except: noted in the right upper arm and right hip: pain, tenderness, There is no evidence of decreased ROM, deformity. 22:40 Neuro: Orientation: to person, place \T\ time. Mentation: is normal, Motor: moves all fours, Sensation: no obvious gross deficits. Vital Signs: 22:01 BP 142 / 56; Pulse 81; Resp 18; Temp 98.2; Pulse Ox 97% on R/A; Weight 68.95 kg; Height rv 5 ft. 4 in. (162.56 cm); Pain 10/10; 23:08 BP 137 / 52; Pulse 84; Resp 18; Pulse Ox 97% on R/A; rv 23:58 BP 134 / 50; Pulse 84; Resp 17; Temp 98; Pulse Ox 98% on R/A; rv 03/05 01:08 BP 116 / 51; Pulse 84; Resp 17; Pulse Ox 96% on R/A; rv 02:23 BP 131 / 56; Pulse 87; Resp 18; Pulse Ox 98% on R/A; rv 03:20 BP 155 / 75; Pulse 80; Resp 16; Temp 98.1; Pulse Ox 99% ; Pain 6/10; rr5 04:55 BP 142 / 53; Pulse 83; Resp 17; Temp 98.2; Pulse Ox 98% on R/A; rr5 03/04 22:01 Body Mass Index 26.09 (68.95 kg, 162.56 cm) rv MDM: 03/04 22:07 Patient medically screened. cp 23:00 Differential diagnosis: closed head injury, contusion, fracture, laceration, multiple cp trauma. 03/05 03:21 Data reviewed: vital signs, nurses notes, lab test result(s), radiologic studies, CT cp scan, plain films, I have discussed the patient's presentation/case with the attending Emergency Department Physician; and as a result, I will admit patient. 03:21 Counseling: I had a detailed discussion with the patient and/or guardian regarding: the cp historical points, exam findings, and any diagnostic results supporting the discharge/admit diagnosis, lab results, radiology results. Response to treatment: the patient's symptoms have mildly improved after treatment, and as a result, I will admit patient. 03/05 01:47 Order name: CBC with Diff cp 03/05 01:47 Order name: BMP cp 03/05 01:47 Order name: Type And Screen cp 03/05 01:47 Order name: PT-INR 03/05 01:47 Order name: Ptt, Activated; Complete Time: 03:21 03/05 01:48 Order name: CBC with Automated Diff; Complete Time: 03:21 [facility] 03/05 03:21 Interpretation: Normal except: WBC 12.8; RBC 3.59; HGB 10.4; HCT 31.0; RDW 17.3; cp EOSINOPHIL % 6.1; NEUT A 8.1. 03/04 22:20 Order name: XRAY Humerus RIGHT; Complete Time: 23:21 03/04 23:22 Interpretation: Report reviewed. 03/04 22:20 Order name: XRAY Pelvis; Complete Time: 23:21 03/04 22:20 Order name: XRAY Hip RIGHT 2 view; Complete Time: 23:21 03/05 01:48 Order name: Basic Metabolic Panel; Complete Time: 03:21 [facility] 03/05 01:48 Order name: Type and Screen [facility] 03/05 01:48 Order name: Protime (+INR); Complete Time: 03:21 [facility] 03/05 03:25 Order name: Troponin I [facility] 03/05 05:15 Order name: ABO/RH no charge [facility] 03/04 22:20 Order name: XRAY Chest (1 view); Complete Time: 23:21 03/04 23:14 Order name: Misc. Order: ambulate patient; Complete Time: 23:56 03/05 00:02 Order name: CT Chest Abdomen Pelvis W/O Contrast 03/05 03:25 Order name: CONS Pharmacy Consult [facility] 03/05 03:25 Order name: Heart Healthy [facility] 03/05 03:25 Order name: NPO [facility] 03/05 03:25 Order name: EKG Electrocardiogram [facility] 03/05 03:25 Order name: EKG Electrocardiogram [facility] 03/05 03:26 Order name: Physical Therapy Consult [facility] 03/05 01:47 Order name: IV; Complete Time: 02:18 cp Administered Medications: 03/04 23:26 Drug: UltRAM 50 mg Route: PO; rv 23:58 Follow up: Response: Pain is decreased rv 23:26 Drug: Tylenol 500 mg Route: PO; rv 23:58 Follow up: Response: Pain is decreased rv 23:57 CANCELLED (changed dose): Tylenol 650 mg PO once rv 03/05 02:18 Drug: fentaNYL (PF) 25 mcg Route: IVP; Site: left forearm; rv 03:31 Follow up: Response: No adverse reaction rr5 03:30 Drug: fentaNYL (PF) 25 mcg Route: IVP; Site: left forearm; rr5 04:19 Follow up: Response: No adverse reaction rr5 03:30 Drug: NS 0.9% 250 ml Route: IV; Rate: bolus; Site: left forearm; rr5 03:58 Follow up: Response: No adverse reaction; IV Status: Completed infusion; IV Intake: rr5 250ml 03:58 Drug: NS 0.9% 1000 ml Route: IV; Rate: 75 ml/hr; Site: left forearm; rr5 04:19 Follow up: Response: No adverse reaction; IV Status: Infusion continued upon admission rr5 Disposition: 05:56 Co-signature as Attending Physician, Jonathon Ruelas MD I agree with the assessment and kdr plan of care. Disposition: 03/05/19 03:21 Hospitalization ordered by Joey Amado for Observation. Preliminary diagnosis are Fall on same level from slipping, tripping and stumbling, Nondisplaced right transverse process fractures of L1 thru L3. - Bed requested for Telemetry/MedSurg (observation). - Status is Observation. rr5 - Condition is Stable. - Problem is new. - Symptoms have improved. UTI on Admission? No Signatures: Dispatcher [employer] EDMS Jonathon Ruelas MD MD [facility] Priya Torres RN RN bb Steve Macias PA PA cp Del Goldberg RN RN rv Daren Knox RN RN rr5 Corrections: (The following items were deleted from the chart) 03/04 23:57 23:14 Tylenol 650 mg PO once ordered. cp rv 23:57 23:26 Tylenol 650 mg PO once given. rv rv 23:57 23:57 Tylenol 650 mg PO once ordered. rv rv 03/05 03:22 03/04 22:20 This 78 yrs old Female presents to ER via EMS with complaints of cp fall. cp 03/05 04:08 03:21 Hospitalization Ordered by Joey Amado MD for Observation. Preliminary bb diagnosis is Fall on same level from slipping, tripping and stumbling; Nondisplaced right transverse process fractures of L1 thru L3. Bed requested for Telemetry/MedSurg (observation). Status is Observation. Condition is Stable. Problem is new. Symptoms have improved. UTI on Admission? No. cp 05:42 04:08 03/05/2019 03:21 Hospitalization Ordered by Joey Amado MD for Observation. rr5 Preliminary diagnosis is Fall on same level from slipping, tripping and stumbling; Nondisplaced right transverse process fractures of L1 thru L3. Bed requested for Telemetry/MedSurg (observation). Status is Observation. Condition is Stable. Problem is new. Symptoms have improved. UTI on Admission? No. bb 03/06 01:17 03/04 22:25 Severity of symptoms: in the emergency department the symptoms are cp unchanged, despite home interventions, cp
[2019-03-05] MEDS: dexAMETHasone 10 MG/ML VIAL IV SCH ×2 (07:32→12:00)
[2019-03-05 08:17] VITALS: BMI 26.1
--- NOTE | 2019-03-05 12:46 | RAD REPORT ---
EXAM DESCRIPTION: CT - Chest Abd Pelvis Wo Con - 03/05/2019 3:35 am ADDENDUM #1 THIS REPORT CONTAINS FINDINGS THAT MAY BE CRITICAL TO PATIENT CARE: The findings were verbally discussed via telephone conference with Dr. Jonathon Ruelas by Dr. Tray Fowler on 1:12 AM CDT .The results were acknowledged and understood. Electronically signed by: Dara Fowler MD 03/05/2019 1:13 AM CDT End of Addendum EXAM DESCRIPTION: CT Chest Without Intravenous Contrast CT Abdomen and Pelvis Without Intravenous Contrast CLINICAL HISTORY: The patient is 78 years old and is Female; fall, left side rib and hip pain TECHNIQUE: Axial computed tomography images of the chest, abdomen and pelvis without intravenous con trast. Sagittal and coronal reformatted images were created and reviewed. This CT exam was perfor med using one or more of the following dose reduction techniques: automated exposure control, adjus tment of the mA and/or kV according to patient size, and/or use of iterative reconstruction technique . COMPARISON: No relevant prior studies available. FINDINGS: ARTIFACTS: The exam is suboptimal secondary to motion artifact. CHEST: LUNGS: Focal groundglass opacity within the right middle lobe anteriorly are present. The lungs are otherwise clear. PLEURAL SPACE: Unremarkable. No significant effusion. No pneumothorax. HEART: No cardiomegaly. No pericardial effusion. ABDOMEN: LIVER: Homogeneous without focal mass. GALLBLADDER AND BILE DUCTS: The gallbladder is physiologically distended. No calcified gallstone s are seen. PANCREAS: Unremarkable. No ductal dilation. SPLEEN: Unremarkable. ADRENALS: Unremarkable. No mass. KIDNEYS AND URETERS: No obstructing stones. No hydronephrosis. STOMACH AND BOWEL: The stomach is minimally distended. The small bowel is normal in caliber. Sca ttered colonic diverticula are present throughout the colon. No surrounding inflammatory stranding is present. There is no mucosal thickening or evidence of bowel obstruction. PELVIS: APPENDIX: The appendix is dilated measuring up to 1.0 cm. The appendix is diffusely low-attenuat ion within punctate appendicolith present. There is no surrounding inflammation or fluid. BLADDER: Unremarkable. No stones. REPRODUCTIVE: Unremarkable as visualized. CHEST, ABDOMEN and PELVIS: INTRAPERITONEAL SPACE: Unremarkable. No significant fluid collection. No free air. BONES/JOINTS: Postsurgical change of the proximal left femur is present. Fractures of the right transverse process of L1-L3 is noted. There is no other acute fracture of the visualized axial and ap pendicular skeleton. Multilevel degenerative change of the spine is present. SOFT TISSUES: The soft tissues are normal. VASCULATURE: Atherosclerosis of the vasculature is present. No aortic aneurysm. LYMPH NODES: Multiple enlarged bilateral inguinal and pelvic sidewall lymph nodes are present. T he largest of which measures approximately 2.4 x 2.0 cm abutting the left cephalad on axial image 81. IMPRESSION: 1. Findings suggestive of contusion within the right middle lobe anteriorly. Alternati vely, focus of infection is within the differential. 2. Nondisplaced transverse process fractures on the right from L1 through L3. 3. Dilated fluid-filled appendix with small appendicolith present. There is no surrounding inflamma tion or fluid. However, mucocele of the appendix and/or acute appendicitis may have this appearance. Correlation with patient's history and further evaluation as indicated is recommended. 4. Multiple enlarged bilateral inguinal and pelvic sidewall adenopathy. Findings are concerning for malignancy. Electronically signed by: Dara Fowler MD 03/05/2019 1:03 AM CDT Due to temporary technical issues with the PACS/Fluency reporting system, reports are being signed by the in house radiologist as a courtesy to ensure prompt reporting. The interpreting radiologist is f ully responsible for the content of the report.
[2019-03-05] MEDS: NA CHLORIDE 0.9% 1,000 ML IV SCH ×2 (16:02→17:20)
[2019-03-05] MEDS: MORPHINE 2 MG/ML SYR IV PRN (16:02)
[2019-03-06] MEDS: MORPHINE 2 MG/ML SYR IV PRN ×2 (00:08→08:06)
[2019-03-06] MEDS: NA CHLORIDE 0.9% 1,000 ML IV SCH (04:53)
[2019-03-06 05:39] LABS: Absolute Lymphocytes (CBC) 2.4 K/uL (0.7-4.9); Basophils % 0.4 % (0-1.3); Eosinophils % 0.6 % (0-4.4); Hematocrit 25.2 % (36.0-45.0); Lymphocytes % 17.1 % (15.3-44.8); MPV 8.6 fL (7.6-11.3); Monocytes % 8.6 % (3.3-12.3); RBC Red Blood Cell Count 2.95 M/uL (3.86-4.86)
[2019-03-06 05:56] LABS: ALT/SGPT 21 U/L (12-78); AST/SGOT 22 U/L (15-37); Albumin 2.7 g/dL (3.4-5.0); Alkaline Phosphatase 60 U/L (45-117); BUN Blood Urea Nitrogen 14 mg/dL (7-18); Bicarbonate 20 mmol/L (21-32); Bilirubin Total 0.3 mg/dL (0.2-1.0); Glucose Level 132 mg/dL (74-106); Potassium 4.2 mmol/L (3.5-5.1); Protein, Total 6.4 g/dL (6.4-8.2); Sodium Level 139 mmol/L (136-145)
[2019-03-06 09:49] VITALS: O2SAT 95
[2019-03-06 10:59] LABS: Urine Appearance TURBID; Urine Bilirubin NEGATIVE (NEG); Urine Blood 3+ (NEG); Urine Color YELLOW; Urine Glucose NEGATIVE (NEG); Urine Protein 1+ (NEG); Urine Urobilinogen 0.2 mg/dL (0.2-1.0); Urine pH 5.5 (5.0-7.0)
[2019-03-06 11:02] LABS: Urine Microscopic Reflex ORDER UMIC
[2019-03-06 11:03] VITALS: BP 129/58; TEMP 99.4
[2019-03-06 11:24] LABS: Urine Bacteria >50 /HPF (<20); Urine Culture Reflex Order REFLEXED; Urine RBC 20-50 /HPF (NONE SEEN); Urine Yeast PRESENT (NONE SEEN)
[2019-03-06 11:25] LABS: Urine Yeast with Hyphae PRESENT
--- NOTE | 2019-03-06 13:34 | P.SSS ---
Patient History Date of Service: 03/06/19 Reason for admission: Weakness status post fall History of Present Illness: patient is a 78-year-old female who came to the hospital after falling. She suffered a transverse process fracture. This involved L2, L3, and L4. Patient has a history of malignant melanoma. There is spread up and down the left lower extremity and into the inguinal nodes on the left leg. Recent PET scan does not involve any brain or bone lesions. Patient gets her treatments in [place]. He is here with her family. She normally lives in this region. She was treated a week ago for urinary tract infection and started on Levaquin. She became nauseated after a day of taking it. She has been taking it now without any problems. But she has been feeling weak. She apparently had hip surgery which left her left leg a little bit shorter than her right. She has had some trouble walking since that time. But her biggest issues have come with her melanoma. She has large lesions in her lower extremity. These appear to be very pronounced and painful. Patient will be admitted to the hospital just for observation and hydration. She gets her care and dialysis and she has treatments scheduled for Thursday so the family will definitely need to leave by Thursday as the immunotherapy treatments are probably the most important part of her care right now. Allergies No Known Drug Allergies Allergy (Unknown, Verified 02/27/19 14:24) Rash Home Medications: Amlodipine [Norvasc*] 5 mg PO DAILY 02/27/19 Captopril 25 mg PO DAILY 02/27/19 Levothyroxine [Synthroid*] 75 mcg PO [id number] 02/27/19 Metformin HCl 500 mg PO BID 02/27/19 levoFLOXacin [Levaquin] 500 mg PO DAILY #7 tab 03/02/19 - Past Medical/Surgical History Has patient received pneumonia vaccine in the past: Yes Diabetic: Yes -: Diabetes -: Hypertension -: Melanoma, left leg -: hypothyroidism -: Hip replacement, (metal daily) left hip (2012) - Family History Mother -: Heart disease, Diabetes Father -: Heart disease, Diabetes - Social History Smoking Status: Never smoker Alcohol use: No CD- Drugs: No Caffeine use: No Place of Residence: Home Review of Systems 10-point ROS is otherwise unremarkable Physical Examination - Vital Signs Temperature: 99.4 F Blood Pressure: 129/58 Pulse: 94 Respirations: 16 Pulse Ox (%): 95 - Physical Exam General: Alert, In no apparent distress HEENT: Atraumatic, PERRLA, Mucous membr. moist/pink, EOMI, Sclerae nonicteric Neck: Supple, 2+ carotid pulse no bruit, No LAD, Without JVD or thyroid abnormality Respiratory: Clear to auscultation bilaterally, Normal air movement Cardiovascular: Regular rate/rhythm, Normal S1 S2 Gastrointestinal: Normal bowel sounds, No tenderness Musculoskeletal: No tenderness Integumentary: No rashes Neurological: Normal gait, Normal speech, Normal strength at 5/5 x4 extr, Normal tone, Normal affect Lymphatics: No axilla or inguinal lymphadenopathy - Diagnosis (Problem(s)) (1) Lumbar transverse process fracture Current Visit: Yes Status: Acute Qualifiers: Encounter type: initial encounter Fracture type: open Qualified Code(s): S32.009B - Unspecified fracture of unspecified lumbar vertebra, initial encounter for open fracture (2) Generalized weakness Current Visit: Yes Status: Acute (3) History of immunotherapy Current Visit: Yes Status: Chronic (4) History of malignant melanoma Current Visit: Yes Status: Chronic (5) Status post fall Current Visit: Yes Status: Chronic Treatment Summary: Overall during the hospital stay patient remained stable Patient was admitted to the hospital for status post fall was found to have transverse process fall had PT consult worked with physical therapy here in the hospital was provided with back brace did well overall and thus was discharged home under stable condition - Disposition Disposition: ROUTINE DISCHARGE Condition: GOOD
--- NOTE | 2019-03-09 05:07 | P.HP ---
Date of Service: 03/05/19 Certification for Inpatient Patient admitted to: Observation With expected LOS: <2 Midnights Patient will require the following post-hospital care: None Practitioner: I am a practitioner with admitting privileges, knowledge of patient current condition, hospital course, and medical plan of care. Services: Services provided to patient in accordance with Admission requirements found in Title 42 Section 412.3 of the Code of Federal Regulations Patient History Date of Service: 03/05/19 Reason for admission: Weakness status post fall History of Present Illness: patient is a 78-year-old female who came to the hospital after falling. She suffered a transverse process fracture. This involved L2, L3, and L4. Patient has a history of malignant melanoma. There is spread up and down the left lower extremity and into the inguinal nodes on the left leg. Recent PET scan does not involve any brain or bone lesions. Patient gets her treatments in [place]. He is here with her family. She normally lives in this region. She was treated a week ago for urinary tract infection and started on Levaquin. She became nauseated after a day of taking it. She has been taking it now without any problems. But she has been feeling weak. She apparently had hip surgery which left her left leg a little bit shorter than her right. She has had some trouble walking since that time. But her biggest issues have come with her melanoma. She has large lesions in her lower extremity. These appear to be very pronounced and painful. Patient will be admitted to the hospital just for observation and hydration. She gets her care and dialysis and she has treatments scheduled for Thursday so the family will definitely need to leave by Thursday as the immunotherapy treatments are probably the most important part of her care right now. Allergies No Known Drug Allergies Allergy (Unknown, Verified 02/27/19 14:24) Rash Home Medications: Amlodipine [Norvasc*] 5 mg PO DAILY 02/27/19 Captopril 25 mg PO DAILY 02/27/19 Levothyroxine [Synthroid*] 75 mcg PO [id number] 02/27/19 Metformin HCl 500 mg PO BID 02/27/19 levoFLOXacin [Levaquin] 500 mg PO DAILY #7 tab 03/02/19 - Past Medical/Surgical History Has patient received pneumonia vaccine in the past: Yes Diabetic: Yes -: Diabetes -: Hypertension -: Melanoma, left leg -: hypothyroidism -: Hip replacement, (metal daily) left hip (2012) - Family History Mother Medical History: Heart disease, Diabetes Father Medical History: Heart disease, Diabetes - Social History Smoking Status: Never smoker Alcohol use: No CD- Drugs: No Caffeine use: No Place of Residence: Home Review of Systems 10-point ROS is otherwise unremarkable Physical Examination - Vital Signs Temperature: 98.9 F Blood Pressure: 133/65 Pulse: 106 Respirations: 15 Pulse Ox (%): 98 - Physical Exam General: Alert, In no apparent distress, Oriented x3 HEENT: Atraumatic, PERRLA, Mucous membr. moist/pink, EOMI, Sclerae nonicteric Neck: Supple, 2+ carotid pulse no bruit, No LAD, Without JVD or thyroid abnormality Respiratory: Clear to auscultation bilaterally, Normal air movement Cardiovascular: Regular rate/rhythm, Normal S1 S2, No murmurs Gastrointestinal: Normal bowel sounds, Soft and benign, Non-distended, No tenderness Musculoskeletal: No clubbing, Tenderness, Warmth, Other ( Large malignant melanomas in the lower extremity above her left ankle that measure about 10 x 12 cm in size) Integumentary: Other ( malignant melanoma lesions) Neurological: Normal speech, Sensation intact, Cranial nerves 3-12 intact, Normal affect, Abnormal gait, Abnormal strength Lymphatics: No axilla or inguinal lymphadenopathy - Studies Laboratory Data (last 24 hrs) 03/05/19 02:03: PT 14.2 H, INR 1.21, APTT 33.2 03/05/19 02:03: Sodium 137, Potassium 4.0, BUN 14, Creatinine 0.75, Glucose 106 03/05/19 02:03: WBC 12.8 H D, Hgb 10.4 L, Hct 31.0 L, Plt Count 342 Assessment & Plan - Problems (Diagnosis) (1) Generalized weakness Current Visit: Yes Status: Acute (2) Status post fall Current Visit: Yes Status: Acute (3) Lumbar transverse process fracture Current Visit: Yes Status: Acute (4) History of malignant melanoma Current Visit: Yes Status: Acute (5) History of immunotherapy Current Visit: Yes Status: Acute - Plan plan: 1. IV hydration 2. Antibiotics 3. monitor her electrolytes 4. physical therapy evaluation 5. continue dressings on melanoma lesions 6. GI and DVT prophylaxis Discharge Plan: Home Plan to discharge in: 48 Hours - Advance Directives Does patient have a Living Will: No Does patient have a Durable POA for Healthcare: No - Code Status/Comfort Care Code Status Assessed: Yes Code Status: Full Code Critical Care: No Time Spent Managing PTS Care (In Minutes): 45
== END 2019-03-06 15:58 | disposition home or self-care (01) ==
LOC: ER 21:47 → ERHOLD 03-05 03:17 → 2ND 03-05 05:06
PROVIDERS: ADMIT Hospitalist; ATTEND Family Medicine
DX: S32.018A Other fracture of first lumbar vertebra, initial encounter for closed fracture (principal); S32.028A Other fracture of second lumbar vertebra, initial encounter for closed fracture; S32.038A Other fracture of third lumbar vertebra, initial encounter for closed fracture; W01.0XXA Fall on same level from slipping, tripping and stumbling without subsequent striking against object, initial encounter; C77.4 Secondary and unspecified malignant neoplasm of inguinal and lower limb lymph nodes; C79.89 Secondary malignant neoplasm of other specified sites; Z85.820 Personal history of malignant melanoma of skin; R53.1 Weakness; E11.9 Type 2 diabetes mellitus without complications; E03.9 Hypothyroidism, unspecified; I10 Essential (primary) hypertension; Z79.84 Long term (current) use of oral hypoglycemic drugs; Z79.899 Other long term (current) drug therapy
CPT/HCPCS: 96365; 87088; 85025 ×2; 87086; 80048; 36415 ×2; 86900; 86850; 85610; 86901; 82962 ×6; 85730; 84484; 80053; 71250; 74176; 71045; 72170; 73502; 73060; 97760; 97110; 97116 ×3; 97163; 97530 ×3; 96375; 99285; J3010 ×2; J1100; J2270 ×3; J7030 ×3; G0378 ×2; 81003; 81015

== ENCOUNTER 2019-03-09 10:54 | Inpatient (IN) | payer OTHER ==
[2019-03-09] MEDS ORDERED: ACETAMINOPHEN 500 MG TAB ONE (11:30)
[2019-03-09] MEDS ORDERED: NA CHLORIDE 0.9% 1,000 ML ONE ×2 (11:30→12:30)
[2019-03-09 11:35] LABS: Absolute Lymphocytes (CBC) 2.9 K/uL (0.7-4.9); Basophils % 0.7 % (0-1.3); Lymphocytes % 20.3 % (15.3-44.8); MPV 8.4 fL (7.6-11.3); RBC Red Blood Cell Count 3.48 M/uL (3.86-4.86)
[2019-03-09 11:44] LABS: Protime INR 1.21
[2019-03-09 11:56] LABS: ALT/SGPT 15 U/L (12-78); AST/SGOT 19 U/L (15-37); Albumin 2.7 g/dL (3.4-5.0); Alkaline Phosphatase 66 U/L (45-117); BUN Blood Urea Nitrogen 7 mg/dL (7-18); Bicarbonate 25 mmol/L (21-32); Bilirubin Direct 0.1 mg/dL (0-0.2); Bilirubin Total 0.7 mg/dL (0.2-1.0); Creatine Phosphokinase 84 U/L (26-192); Glucose Level 113 mg/dL (74-106); Potassium 3.4 mmol/L (3.5-5.1); Protein, Total 6.6 g/dL (6.4-8.2); Sodium Level 135 mmol/L (136-145)
--- NOTE | 2019-03-09 12:27 | RAD REPORT ---
EXAM DESCRIPTION: RAD - Chest Single View - 03/09/2019 11:57 am CLINICAL HISTORY: Dyspnea;Fever Chest pain. COMPARISON: Chest Single View dated 03/04/2019; Chest Single View dated 02/27/2019; Chest Abd Pelvis W o Con dated 03/05/2019 FINDINGS: Portable technique limits examination quality. Mild interstitial prominence. The heart is normal in size. No displaced fractures. IMPRESSION: Mild interstitial pneumonitis is possible.
[2019-03-09 12:45] LABS: Urine Bacteria 20-50 /HPF (<20); Urine RBC <5 /HPF (NONE SEEN)
[2019-03-09 12:46] LABS: Urine Culture Reflex Order NOT NEEDED; Urine Yeast MANY (NONE SEEN); Urine Yeast with Hyphae PRESENT
--- NOTE | 2019-03-09 12:54 | RAD REPORT ---
EXAM DESCRIPTION: CT - Head Brain Wo Cont - 03/09/2019 12:44 pm CLINICAL HISTORY: MENTAL STATUS CHANGE Headache, drowsiness, COMPARISON: No comparisons TECHNIQUE: All CT scans are performed using dose optimization technique as appropriate and may inclu de automated exposure control or mA/KV adjustment according to patient size. FINDINGS: No intracranial hemorrhage, hydrocephalus or extra-axial fluid collection.Mild generalized brain atrophy.No areas of brain edema or evidence of midline shift. The paranasal sinuses and mastoids are clear. The calvarium is intact. Vertebral artery atheroscleros is. IMPRESSION: No acute intracranial abnormality.
[2019-03-09] MEDS ORDERED: PIPER/TAZO/NS 3.375gm 3.375 GM/100 ML BAG ONE (13:00)
--- NOTE | 2019-03-09 13:00 | ER ---
Nurse's Notes [facility] Name: Dot Berrios Age: 78 yrs Sex: Female : 1940 Arrival Date: 03/09/2019 Time: 10:56 Bed 4 Private MD: Diagnosis: Urinary tract infection, site not specified;Altered mental status, unspecified Presentation: 03/09 10:57 Presenting complaint: EMS states: pt became delirious per family member today, pt is on hj tx for immunotherapy for melanoma mets, UTI and lumbar fracture and open wound on L ankle area; T-99.9; BGL- 123; SBP- 150's;. Transition of care: patient was not received from another setting of care. Onset of symptoms was March 09, 2019. Risk Assessment: Do you want to hurt yourself or someone else? Patient reports no desire to harm self or others. Initial Sepsis Screen: Does the patient meet any 2 criteria? Temp <36.0*C (96.8*F)) or > 38.3*C (100.9*F). Altered Mental Status. Yes Does the patient have a suspected source of infection? Yes: Dysuria/Frequency/Urgency/UTI Skin breakdown/wound. Care prior to arrival: None. 10:57 Method Of Arrival: EMS: [facility] 10:57 Acuity: STEPHANI 2 10:57 Note code sepsis called;. Triage Assessment: 11:00 General: Appears in no apparent distress. uncomfortable, Behavior is calm, cooperative, hj appropriate for age. Pain: Complains of pain in back and left leg. Neuro: Level of Consciousness is awake, alert, obeys commands, Oriented to person, place. Historical: - Allergies: 11:00 No Known Drug Allergies; hj - Home Meds: 11:07 levothyroxine 75 mcg tab 1 tab once daily [Active]; B-Complex Oral tab [Active]; hj captopril 25 mg Oral tab daily [Active]; metformin 500 mg Oral tr24 twice a day [Active]; Norvasc 5 mg Oral tab 1 tab once daily [Active]; - PMHx: 11:00 Diabetes - NIDDM; Hypertension; melanoma; Thyroid problem; UTI; hj - PSHx: 11:00 left hip surgery; hj - Immunization history:: Adult Immunizations up to date. - Social history:: Smoking status: Patient/guardian denies using tobacco, Patient/guardian denies using alcohol. - Ebola Screening: : Patient negative for fever greater than or equal to 101.5 degrees Fahrenheit, and additional compatible Ebola Virus Disease symptoms Patient denies exposure to infectious person Patient denies travel to an Ebola-affected area in the 21 days before illness onset. Screenin:00 Abuse screen: Denies threats or abuse. Denies injuries from another. Nutritional hj screening: No deficits noted. Tuberculosis screening: No symptoms or risk factors identified. Fall Risk None identified. Assessment: 11:02 General: Appears in no apparent distress. uncomfortable, Behavior is calm, cooperative, hj appropriate for age. Pain: Complains of pain in back and left leg. Neuro: Level of Consciousness is awake, alert, Oriented to person, place. Cardiovascular: Capillary refill < 3 seconds Patient's skin is warm and dry. Respiratory: Airway is patent Respiratory effort is even, unlabored, Respiratory pattern is regular, symmetrical. GI: : No signs and/or symptoms were reported regarding the genitourinary system. EENT: No signs and/or symptoms were reported regarding the EENT system. Derm: No signs and/or symptoms reported regarding the dermatologic system. Musculoskeletal: No signs and/or symptoms reported regarding the musculoskeletal system. 12:46 Reassessment: Patient and/or family updated on plan of care and expected duration. Pain hj level reassessed. Patient is alert, oriented x 3, equal unlabored respirations, skin warm/dry/pink. awaiting results and POC; Patient states feeling better. Patient states symptoms have improved. 13:44 Reassessment: Patient and/or family updated on plan of care and expected duration. Pain hj level reassessed. Patient is alert, oriented x 3, equal unlabored respirations, skin warm/dry/pink. awaiting room placement; family in room;. Vital Signs: 11:01 BP 158 / 59; Pulse 95; Resp 20; Temp 99.8(O); Pulse Ox 99% on R/A; Weight 68.95 kg; hj Height 5 ft. 4 in. (162.56 cm); Pain 8/10; 12:15 BP 142 / 60; Pulse 89; Resp 18; Temp 99.0(O); Pulse Ox 100% on R/A; hj 12:57 BP 128 / 47; Pulse 87; Resp 18; Pulse Ox 97% on R/A; hj 13:45 BP 132 / 50; Pulse 86; Resp 18; Pulse Ox 97% on R/A; hj 14:19 BP 140 / 61; Pulse 88; Resp 18; Pulse Ox 100% on R/A; hj 11:01 Body Mass Index 26.09 (68.95 kg, 162.56 cm) ED Course: 10:56 Patient arrived in ED. hj 10:57 Tobias Cox PA is PHCP. jr8 10:57 Daryl Bernstein MD is Attending Physician. jr8 10:59 Triage completed. hj 11:01 Arm band placed on right wrist. hj 11:01 Patient has correct armband on for positive identification. Placed in gown. Bed in low hj position. Call light in reach. Side rails up X2. Adult w/ patient. 11:03 Ricardo Castro, RN is Primary Nurse. hj 11:15 Initial lab(s) drawn, by ED staff, sent to lab. First set of blood cultures drawn by lab staff. 11:30 Inserted saline lock: 22 gauge in left forearm, using aseptic technique. Blood hj collected. 11:56 X-ray completed. Portable x-ray completed in exam room. Patient tolerated procedure jb2 well. 11:58 Chest Single View XRAY In Process Unspecified. EDMS 12:10 Urine collected: straight cath specimen, cloudy, malachi colored. jb1 12:47 CT Head Brain wo Cont In Process Unspecified. EDMS 12:47 Inserted saline lock: 20 gauge in right wrist, using aseptic technique. Blood collected.hj 12:59 Jelena Juan MD is Hospitalizing Provider. jr8 14:27 No provider procedures requiring assistance completed. Patient admitted, IV remains in hj place. intact. Administered Medications: 11:08 Drug: Acetaminophen 1000 mg Route: PO; hj 11:37 Follow up: Response: No adverse reaction hj 11:20 Drug: NS 0.9% (30 ml/kg) 30 ml/kg Route: IV; Rate: bolus; Site: right wrist; hj 12:34 Drug: Zosyn 3.375 grams Route: IVPB; Infused Over: 60 mins; Site: right wrist; hj 13:15 Follow up: IV Status: Completed infusion; IV Intake: 100ml 12:52 Drug: Zofran 2 mg Route: IVP; Site: right wrist; hj 12:52 Follow up: Response: No adverse reaction hj 12:56 Drug: DiFLUcan 150 mg Route: PO; hj 13:01 Follow up: Response: No adverse reaction hj Point of Care Testing: Blood Glucose: 11:20 Blood Glucose: 106 mg/dL; hj Ranges: Intake: 13:15 IV: 100ml; Total: 100ml. Outcome: 13:00 Decision to Hospitalize by Provider. enrike 14:28 Admitted to Tele accompanied by tech, family with patient, via wheelchair, room 401, on monitor, with chart, Report called to SANGEETA Viveros 14:28 Condition: stable 14:28 Instructed on the need for admit, Demonstrated understanding of instructions. 14:36 Patient left the ED. Signatures: Dispatcher [employer] EDMS Royal Jay1 Raimundo Reese2 Tobias Cox PA PA jr8 Ricardo Castro RN RN Corrections: (The following items were deleted from the chart) 11:06 11:01 BP 158 / 59; Pulse 95bpm; Resp 20bpm; Pulse Ox 99% RA; 68.95 kg; Height 5 ft. 4 hj in.; BMI: 26.0; Pain 8/10; hj 13:02 12:57 Pulse 87bpm; Resp 18bpm; Pulse Ox 97% RA; hj hj
--- NOTE | 2019-03-09 13:01 | EDPHYS ---
Physician Documentation [facility] Name: Dot Berrios Age: 78 yrs Sex: Female : 1940 Arrival Date: 03/09/2019 Time: 10:56 Bed 4 Private MD: ED Physician Daryl Bernstein HPI: 03/09 11:54 This 78 yrs old Female presents to ER via EMS with complaints of Altered jr8 Mental Status. 11:54 The patient presents with confusion. Onset: The symptoms/episode began/occurred jr8 acutely, this morning, today. Possible causes: sepsis, the patient has a known UTI history. Associated signs and symptoms: The patient has no apparent associated signs or symptoms. Current symptoms: In the emergency department the patient's symptoms have improved, mildly. Patient's baseline: Neuro: alert and fully oriented, Motor: no deficits, Ambulation: walks with assist only, uses walker, Speech: normal. The patient has not experienced similar symptoms in the past. The patient has been recently seen by a physician:. Patient currently on immunotherapy for metastatic melanoma. Patient currently being treated for UTI and was admitted last week for lower lumbar fracture. Daughter of patient stated that patient became acutely altered and agitated this AM. Low grade fever upon arrival. Patient can currently answer questions appropriately but still having delirious episodes . Historical: - Allergies: 11:00 No Known Drug Allergies; hj - Home Meds: 11:07 levothyroxine 75 mcg tab 1 tab once daily [Active]; B-Complex Oral tab [Active]; hj captopril 25 mg Oral tab daily [Active]; metformin 500 mg Oral tr24 twice a day [Active]; Norvasc 5 mg Oral tab 1 tab once daily [Active]; - PMHx: 11:00 Diabetes - NIDDM; Hypertension; melanoma; Thyroid problem; UTI; hj - PSHx: 11:00 left hip surgery; hj - Immunization history:: Adult Immunizations up to date. - Social history:: Smoking status: Patient/guardian denies using tobacco, Patient/guardian denies using alcohol. - Ebola Screening: : Patient negative for fever greater than or equal to 101.5 degrees Fahrenheit, and additional compatible Ebola Virus Disease symptoms Patient denies exposure to infectious person Patient denies travel to an Ebola-affected area in the 21 days before illness onset. ROS: 11:54 Eyes: Negative for injury, pain, redness, and discharge, ENT: Negative for injury, jr8 pain, and discharge, Neck: Negative for injury, pain, and swelling, Cardiovascular: Negative for chest pain, palpitations, and edema, Respiratory: Negative for shortness of breath, cough, wheezing, and pleuritic chest pain, Abdomen/GI: Negative for abdominal pain, nausea, vomiting, diarrhea, and constipation, Back: Negative for injury and pain, Neuro: Negative for headache, weakness, numbness, tingling, and seizure. 11:54 MS/extremity: Positive for pain, of the left leg. 11:54 Skin: Positive for lesions, rash, of the left leg. Exam: 11:54 Eyes: Pupils equal round and reactive to light, extra-ocular motions intact. Lids and jr8 lashes normal. Conjunctiva and sclera are non-icteric and not injected. Cornea within normal limits. Periorbital areas with no swelling, redness, or edema. ENT: Nares patent. No nasal discharge, no septal abnormalities noted. Tympanic membranes are normal and external auditory canals are clear. Oropharynx with no redness, swelling, or masses, exudates, or evidence of obstruction, uvula midline. Mucous membranes moist. Neck: Trachea midline, no thyromegaly or masses palpated, and no cervical lymphadenopathy. Supple, full range of motion without nuchal rigidity, or vertebral point tenderness. No Meningismus. Cardiovascular: Regular rate and rhythm with a normal S1 and S2. No gallops, murmurs, or rubs. Normal PMI, no JVD. No pulse deficits. Respiratory: Lungs have equal breath sounds bilaterally, clear to auscultation and percussion. No rales, rhonchi or wheezes noted. No increased work of breathing, no retractions or nasal flaring. Abdomen/GI: Soft, non-tender, with normal bowel sounds. No distension or tympany. No guarding or rebound. No evidence of tenderness throughout. Back: No spinal tenderness. No costovertebral tenderness. Full range of motion. Neuro: Awake and alert, GCS 15, oriented to person, place, time, and situation. Cranial nerves II-XII grossly intact. Motor strength 5/5 in all extremities. Sensory grossly intact. Cerebellar exam normal. Normal gait. 11:54 Musculoskeletal/extremity: Extremities: grossly normal except: noted in the left leg: Patient has melanoma tumor to medial left ankle. Lymphangitic swelling noted to leg due to metastatic process. Mild erythematic rash noted to longo that family stated has been there and not changed. No other redness noted. Tender to palpation , ROM: intact in all extremities, Pulses: noted to be 2+ in the right radial artery, right dorsalis pedis artery, left radial artery and left dorsalis pedis artery, Sensation intact. 11:54 Skin: Appearance: Color: normal in color, pink, Temperature: warm, Moisture: normal moisture, petechiae, not noted. 11:54 Neuro: Orientation: to person, place, Mentation: lucid, Memory: immediate memory is intact, remote memory is intact. recent memory is intact, Cranial nerves: CN I not tested, CN II- XII are normal as tested, extraocular movements are intact, Speech is clear and appropriate. Tongue strength is normal, Motor: moves all fours, Sensation: no obvious gross deficits, Gait: not tested. seizure activity, is not displayed by the patient, Abnormal movements: there are no abnormal movements. Vital Signs: 11:01 BP 158 / 59; Pulse 95; Resp 20; Temp 99.8(O); Pulse Ox 99% on R/A; Weight 68.95 kg; hj Height 5 ft. 4 in. (162.56 cm); Pain 8/10; 12:15 BP 142 / 60; Pulse 89; Resp 18; Temp 99.0(O); Pulse Ox 100% on R/A; hj 12:57 BP 128 / 47; Pulse 87; Resp 18; Pulse Ox 97% on R/A; hj 13:45 BP 132 / 50; Pulse 86; Resp 18; Pulse Ox 97% on R/A; hj 14:19 BP 140 / 61; Pulse 88; Resp 18; Pulse Ox 100% on R/A; hj 11:01 Body Mass Index 26.09 (68.95 kg, 162.56 cm) MDM: 10:57 Patient medically screened. [facility] 12:57 Data reviewed: vital signs, nurses notes, lab test result(s), EKG, radiologic studies, [facility] CT scan, plain films. Data interpreted: Pulse oximetry: on room air is 97 %. Interpretation: normal. Counseling: I had a detailed discussion with the patient and/or guardian regarding: the historical points, exam findings, and any diagnostic results supporting the discharge/admit diagnosis, lab results, radiology results, the need for further work-up and treatment in the hospital. 03/09 11:08 Order name: Basic Metabolic Panel [facility] 03/09 11:08 Order name: Blood Culture Adult (2) [facility] 03/09 11:08 Order name: CBC with Diff; Complete Time: 11:55 [facility] 03/09 11:08 Order name: CPK; Complete Time: 12:09 [facility] 03/09 11:08 Order name: Lactate; Complete Time: 12:09 [facility] 03/09 11:08 Order name: LFT's; Complete Time: 12:09 [facility] 03/09 11:08 Order name: Procalcitonin; Complete Time: 12:19 [facility] 03/09 11:08 Order name: Protime (+inr); Complete Time: 11:55 [facility] 03/09 11:08 Order name: Ptt, Activated; Complete Time: 11:55 [facility] 03/09 11:08 Order name: Troponin (emerg Dept Use Only); Complete Time: 12:09 [facility] 03/09 11:08 Order name: Urine Microscopic Only; Complete Time: 12:52 [facility] 03/09 11:10 Order name: Basic Metabolic Panel; Complete Time: 12:09 [facility] 03/09 11:10 Order name: Blood Culture [facility] 03/09 12:08 Order name: Urine Culture [facility] 03/09 11:08 Order name: Cath; Complete Time: 12:10 [facility] 03/09 11:08 Order name: Chest Single View XRAY; Complete Time: 12:34 [facility] 03/09 11:08 Order name: Accucheck; Complete Time: 11:20 [facility] 03/09 11:08 Order name: Cardiac monitoring; Complete Time: 11:10 [facility] 03/09 11:08 Order name: EKG - Nurse/Tech; Complete Time: 11:37 [facility] 03/09 11:08 Order name: IV Saline Lock - Large Bore; Complete Time: 11:10 [facility] 03/09 11:08 Order name: Labs collected and sent; Complete Time: 11:17 [facility] 03/09 12:12 Order name: Urine Dipstick--Ancillary (enter results) 03/09 12:19 Order name: CT Head Brain wo Cont; Complete Time: 12:57 [facility] 03/09 12:54 Order name: Glucose, Ancillary Testing; Complete Time: 12:57 [facility] 03/09 13:03 Order name: EKG Electrocardiogram [facility] 03/09 11:08 Order name: O2 Per Protocol; Complete Time: 11:11 jr8 03/09 11:08 Order name: O2 Sat Monitoring; Complete Time: 11:11 [facility] 03/09 11:08 Order name: Urine Dipstick-Ancillary (obtain specimen); Complete Time: 12:10 8 Administered Medications: 11:08 Drug: Acetaminophen 1000 mg Route: PO; hj 11:37 Follow up: Response: No adverse reaction hj 11:20 Drug: NS 0.9% (30 ml/kg) 30 ml/kg Route: IV; Rate: bolus; Site: right wrist; hj 12:34 Drug: Zosyn 3.375 grams Route: IVPB; Infused Over: 60 mins; Site: right wrist; hj 13:15 Follow up: IV Status: Completed infusion; IV Intake: 100ml hj 12:52 Drug: Zofran 2 mg Route: IVP; Site: right wrist; hj 12:52 Follow up: Response: No adverse reaction hj 12:56 Drug: DiFLUcan 150 mg Route: PO; hj 13:01 Follow up: Response: No adverse reaction hj Point of Care Testing: Blood Glucose: 11:20 Blood Glucose: 106 mg/dL; hj Ranges: Critical Glucose Levels:Adult <50 mg/dl or >400 mg/dl <40 mg/dl or >180 mg/dl Disposition: 17:20 Co-signature as Attending Physician, Daryl Bernstein MD. rn Disposition: 03/09/19 13:00 Hospitalization ordered by Jelena Juan for Inpatient Admission. Preliminary diagnosis are Urinary tract infection, site not specified, Altered mental status, unspecified. - Bed requested for Telemetry/MedSurg (Inpatient). - Status is Inpatient Admission. hj - Condition is Stable. - Problem is new. - Symptoms are unchanged. UTI on Admission? Yes Signatures: Dispatcher [employer] EDSC Jenna Rowe Roman, MD MD rn Roszak, Josh, PA PA jr8 Ricardo Castro RN RN hj Corrections: (The following items were deleted from the chart) 11:59 11:54 Patient currently on immunotherapy for metastatic melanoma. Patient currently jr8 being treated for UTI and was admitted last week for lower lumbar fracture. Daughter of patient stated that patient became acutely altered and agitated this AM. Low grade fever upon arrival . jr8 14:10 13:00 Hospitalization Ordered by Jelena Juan MD for Inpatient Admission. Preliminary bd diagnosis is Urinary tract infection, site not specified; Altered mental status, unspecified. Bed requested for Telemetry/MedSurg (Inpatient). Status is Inpatient Admission. Condition is Stable. Problem is new. Symptoms are unchanged. UTI on Admission? Yes. jr8 14:36 14:10 03/09/2019 13:00 Hospitalization Ordered by Jelena Juan MD for Inpatient hj Admission. Preliminary diagnosis is Urinary tract infection, site not specified; Altered mental status, unspecified. Bed requested for Telemetry/MedSurg (Inpatient). Status is Inpatient Admission. Condition is Stable. Problem is new. Symptoms are unchanged. UTI on Admission? Yes. bd
[2019-03-09] MEDS ORDERED: ONDANSETRON 4 MG/2 ML VIAL ONE (13:06)
[2019-03-09] MEDS ORDERED: FLUCONAZOLE 100 MG TAB ONE (13:16)
[2019-03-09 15:21] VITALS: BMI 26.1
[2019-03-09] MEDS: NA CHLORIDE 0.9% 1,000 ML IV SCH (15:47)
--- NOTE | 2019-03-09 15:49 | EKG ---
Test Date: 2019-03-09 Test Time: 11:36:45 Senior Portfolio Manager: DONNIE MEASUREMENT RESULTS: Intervals: Rate: 95 OK: 146 QRSD: 96 QT: 374 QTc: 469 Harmans: P: 39 OK: 146 QRS: 95 T: 40 INTERPRETIVE STATEMENTS: Normal sinus rhythm Rightward axis Borderline ECG Compared to ECG 02/27/2019 11:14:50 Right-axis deviation now present Electronically Signed On 03-09-19 15:48:40 CDT by David Bragg
[2019-03-09] MEDS ORDERED: POTASSIUM 25 MEQ EFFERV TAB PO ONE (15:54)
[2019-03-09 16:05] LABS: Urine Blood 2+ (NEG); Urine Glucose NEGATIVE (NEG); Urine Protein 1+ (NEG); Urine Specific Gravity 1.025 (1.005-1.030); Urine pH 5.5 (5.0-7.0)
[2019-03-09] MEDS: INSULIN -REGULAR HUMAN 50 UNIT/0.5 ML ML SQ SCH ×2 (16:30→20:42)
[2019-03-09] MEDS ORDERED: PNEUMOCOCCAL VACCINE 0.5 ML IMVAC ONE (17:00)
--- NOTE | 2019-03-09 17:35 | P.HP ---
Certification for Inpatient Patient admitted to: Inpatient With expected LOS: >2 Midnights Patient will require the following post-hospital care: None Practitioner: I am a practitioner with admitting privileges, knowledge of patient current condition, hospital course, and medical plan of care. Services: Services provided to patient in accordance with Admission requirements found in Title 42 Section 412.3 of the Code of Federal Regulations Patient History Date of Service: 03/09/19 Primary Care Provider: None Reason for admission: AMS History of Present Illness: This is a 78-year-old female with significant past medical history of multiple myeloma with metastasis who presented to the ED with altered mental status. Patient's family at bedside stated that she has been having some hallucinations and altered mental status since this morning and has been very aggressive towards the family member and thus they decided to bring her to the ER. Patient also has been having some subjective fevers at home. Increased burning during urination. Patient was just recently admitted to the hospital couple of days ago after having a fall at the house and having a transfers process fracture. After which she was doing well overall with acute worsening this morning. Family denies having any other associated symptoms at this time patient only speaks Bulgarian however patient's daughter at bedside who was visiting her from [facility] states that she is not in her usual self at this time. In the ER patient was seen and was found to have hypotension along with lab work and imaging that were done which were consistent with possible urinary tract infection and thus patient was admitted to the hospital for further care. Patient has been taking some antibiotics at home however has not been helping her per family member Allergies No Known Drug Allergies Allergy (Unknown, Verified 02/27/19 14:24) Rash Home Medications: Amlodipine [Norvasc*] 5 mg PO DAILY 03/09/19 Bismuth Tribromoph/Petrolatum [Xeroform 5"X9" Gauze Strip] 1 jerod TOP DAILY 03/09 Captopril [Capoten*] 25 mg PO DAILY 03/09/19 Levothyroxine [Synthroid*] 75 mg PO DAILY 03/09/19 Metformin HCl [Glucophage*] 500 mg PO BID 03/09/19 Metronidazole/Skin Cleansr #23 [[place] 0.75% Gel Kit] 1 jerod TOP BID 03/09/19 Vitamin B Complex [B Complex] 1 tab PO DAILY 03/09/19 levoFLOXacin [Levofloxacin] 500 mg PO DAILY 03/09/19 traMADol HCL [Ultram*] 50 mg PO Q6HP PRN 03/09/19 - Past Medical/Surgical History Has patient received pneumonia vaccine in the past: No Diabetic: Yes -: Diabetes -: Hypertension -: Melanoma, left leg -: Hypothyroidism -: Hip replacement, (metal daily) left hip (2012) - Family History Mother -: Heart disease, Diabetes Father -: Heart disease, Diabetes - Social History Smoking Status: Never smoker Alcohol use: No CD- Drugs: No Caffeine use: No Place of Residence: Home Review of Systems 10-point ROS is otherwise unremarkable Physical Examination - Vital Signs Temperature: 98.4 F Blood Pressure: 141/63 Pulse: 86 Respirations: 15 Pulse Ox (%): 94 - Physical Exam General: Alert, Demented, Confused Respiratory: Normal air movement, Expiratory wheezes, Inspiratory wheezes Cardiovascular: Regular rate/rhythm, Normal S1 S2 Gastrointestinal: Normal bowel sounds, No tenderness Musculoskeletal: No tenderness Integumentary: No rashes Neurological: Normal gait, Normal speech, Normal strength at 5/5 x4 extr, Normal tone, Normal affect Lymphatics: No axilla or inguinal lymphadenopathy - Studies Laboratory Data (last 24 hrs) 03/09/19 10:23: PT 14.2 H, INR 1.21, APTT 32.1 03/09/19 10:23: WBC 14.3 H, Hgb 9.9 L, Hct 30.0 L D, Plt Count 376 03/09/19 10:23: Sodium 135 L, Potassium 3.4 L, BUN 7, Creatinine 0.48 L, Glucose 113 H, Total Bilirubin 0.7, AST 19, ALT 15, Alkaline Phosphatase 66 Assessment and Plan - Problems (Diagnosis) (1) Altered mental status Current Visit: Yes Status: Acute Plan: Altered mental status most likely secondary to Toxic encephalopathy secondary to urinary tract infection -currently patient is very agitated and having some delusional thoughts along with hallucinations -Will start with Haldol p.r.n. at this time and monitor patient here closely -treat underlying disease process Qualifiers: Altered mental status type: delirium Qualified Code(s): R41.0 - Disorientation, unspecified (2) Urinary tract infection Current Visit: Yes Status: Acute Plan: Urinary tract infection due to immobility -UA consistent with increasing bacteria in yeast -will start on IV antibiotics at this time -will also provide with 1 time dose of Diflucan for the yeast Qualifiers: Urinary tract infection type: acute cystitis Hematuria presence: without hematuria Qualified Code(s): N30.00 - Acute cystitis without hematuria (3) Generalized weakness Current Visit: No Status: Chronic Plan: Patient with generalized weakness most likely secondary to multiple myeloma -will get physical therapy consulted here in the hospital (4) Lumbar transverse process fracture Current Visit: No Status: Chronic Qualifiers: Encounter type: subsequent encounter Fracture type: closed Fracture healing: with delayed healing Qualified Code(s): S32.009G - Unspecified fracture of unspecified lumbar vertebra, subsequent encounter for fracture with delayed healing (5) History of malignant melanoma Current Visit: No Status: Chronic - Plan Admit patient to medical-surgical floor for treatment of toxic encephalopathy in urinary tract infection. Discharge Plan: Home Plan to discharge in: Greater than 2 days - Advance Directives Does patient have a Living Will: No Does patient have a Durable POA for Healthcare: No - Code Status/Comfort Care Code Status Assessed: Yes Critical Care: No
[2019-03-09] MEDS ORDERED: HALOPERIDOL 5 MG TAB PO PRN (17:36)
[2019-03-09] MEDS: PIPER/TAZO/NS 2.25gm 2.25 GM/50 ML BAG IVPB SCH ×2 (18:16→23:51)
[2019-03-09] MEDS: KCL 20 MEQ/100 mL IVPB 20 MEQ/100 ML BAG IV SCH ×2 (20:41→23:51)
[2019-03-09] MEDS: TRAMADOL HCL 50 MG TAB PO PRN ×2 (20:45→21:34)
[2019-03-09] MEDS ORDERED: HYDROCODONE/APAP 7.5/325 MG TAB PO PRN (21:42)
[2019-03-10] MEDS: NA CHLORIDE 0.9% 1,000 ML IV SCH ×2 (03:24→10:32)
[2019-03-10] MEDS: PIPER/TAZO/NS 2.25gm 2.25 GM/50 ML BAG IVPB SCH ×3 (05:09→17:02)
[2019-03-10] MEDS: LEVOTHYROXINE SOD 0.075 MG TAB PO SCH (05:10)
[2019-03-10 06:18] LABS: Absolute Lymphocytes (CBC) 2.7 K/uL (0.7-4.9); Hematocrit 27.3 % (36.0-45.0); Lymphocytes % 23.5 % (15.3-44.8); MPV 8.9 fL (7.6-11.3); RBC Red Blood Cell Count 3.21 M/uL (3.86-4.86)
[2019-03-10 07:08] LABS: ALT/SGPT 13 U/L (12-78); AST/SGOT 22 U/L (15-37); Albumin 2.4 g/dL (3.4-5.0); Alkaline Phosphatase 68 U/L (45-117); BUN Blood Urea Nitrogen 4 mg/dL (7-18); Bicarbonate 25 mmol/L (21-32); Bilirubin Total 0.8 mg/dL (0.2-1.0); Glucose Level 75 mg/dL (74-106); Phosphorus 4.1 mg/dL (2.5-4.9); Potassium 3.9 mmol/L (3.5-5.1); Protein, Total 6.2 g/dL (6.4-8.2); Sodium Level 132 mmol/L (136-145)
[2019-03-10 07:20] LABS: Magnesium 1.3 mg/dL (1.8-2.4)
[2019-03-10] MEDS ORDERED: Magnesium Sulfate 2gm IVPB 2 G/50 ML BAG IV ONE (07:29)
[2019-03-10] MEDS: INSULIN -REGULAR HUMAN 50 UNIT/0.5 ML ML SQ SCH ×4 (07:30→19:51)
[2019-03-10] MEDS: AMLODIPINE 5 MG TAB PO SCH (09:00)
[2019-03-10] MEDS: FLUCONAZOLE 100 MG TAB PO SCH (09:00)
[2019-03-10] MEDS: POTASSIUM CL SA 10 MEQ TAB PO SCH (09:00)
[2019-03-10] MEDS: CAPTOPRIL 25 MG TABLET PO SCH (09:00)
--- NOTE | 2019-03-10 15:16 | P.PN ---
Subjective Date of Service: 03/10/19 Primary Care Provider: None Chief Complaint: AMS Patient seen and examined at bedside. Daughter at bedside. Chart reveiwed and case discussed with nursing staff. patient refuses to take any PO medications this mornign, refuses to eat or drink at this time. Patient still with hallucinations and confusion. Review of Systems 10-point ROS is otherwise unremarkable Physical Examination - Vital Signs Temperature: 98.5 F Blood Pressure: 147/65 Pulse: 84 Respirations: 18 Pulse Ox (%): 96 - Physical Exam General: Alert, In no apparent distress, Demented HEENT: Atraumatic Neck: Supple, JVD not distended Respiratory: Clear to auscultation bilaterally, Normal air movement Cardiovascular: Regular rate/rhythm, Normal S1 S2 Gastrointestinal: Normal bowel sounds, No tenderness Musculoskeletal: No tenderness Integumentary: No rashes Neurological: Normal speech, Normal tone, Normal affect Lymphatics: No axilla or inguinal lymphadenopathy Assessment And Plan - Current Problems (Diagnosis) (1) Altered mental status Current Visit: Yes Status: Acute Plan: Altered mental status most likely secondary to Toxic encephalopathy secondary to urinary tract infection -currently patient is calm but continues to have some delusional thoughts along with hallucinations -Will continue with Haldol p.r.n. at this time and monitor patient here closely -treat underlying disease process Qualifiers: Altered mental status type: delirium Qualified Code(s): R41.0 - Disorientation, unspecified (2) Urinary tract infection Current Visit: Yes Status: Acute Plan: Urinary tract infection due to immobility -UA consistent with increasing yeast -will continue on IV antibiotics at this time -will also provide with 1 time dose of Diflucan for the yeast Qualifiers: Urinary tract infection type: acute cystitis Hematuria presence: without hematuria Qualified Code(s): N30.00 - Acute cystitis without hematuria (3) Generalized weakness Current Visit: No Status: Chronic Plan: Patient with generalized weakness most likely secondary to multiple myeloma -will get physical therapy consulted here in the hospital - Patient will likely benefit from further PT at a SNF. SW on board. (4) History of immunotherapy Current Visit: No Status: Chronic Plan: She will continue follow up with her oncologist in [place]. (5) History of malignant melanoma Current Visit: No Status: Chronic (6) Lumbar transverse process fracture Current Visit: No Status: Chronic Qualifiers: Encounter type: subsequent encounter Fracture type: closed Fracture healing: with delayed healing Qualified Code(s): S32.009G - Unspecified fracture of unspecified lumbar vertebra, subsequent encounter for fracture with delayed healing (7) Status post fall Current Visit: No Status: Chronic - Plan Disposition: pending symptomatic improvement. Continue IV antibiotics, anti- fungal. Pending cultures.
[2019-03-10] MEDS: D5 0.9 NS 1,000 ML IV SCH ×2 (16:51→23:00)
[2019-03-10] MEDS: TRAMADOL HCL 50 MG TAB PO PRN (19:50)
[2019-03-11] MEDS: PIPER/TAZO/NS 2.25gm 2.25 GM/50 ML BAG IVPB SCH ×5 (00:04→23:25)
[2019-03-11] MEDS: LEVOTHYROXINE SOD 0.075 MG TAB PO SCH (05:22)
[2019-03-11] MEDS: D5 0.9 NS 1,000 ML IV SCH ×2 (05:22→16:47)
[2019-03-11 06:14] LABS: Absolute Lymphocytes (CBC) 2.4 K/uL (0.7-4.9); Basophils % 0.7 % (0-1.3); Hematocrit 29.3 % (36.0-45.0); Lymphocytes % 27.3 % (15.3-44.8); MPV 8.3 fL (7.6-11.3); RBC Red Blood Cell Count 3.44 M/uL (3.86-4.86)
[2019-03-11 06:21] LABS: ALT/SGPT 12 U/L (12-78); AST/SGOT 23 U/L (15-37); Albumin 2.4 g/dL (3.4-5.0); Alkaline Phosphatase 70 U/L (45-117); BUN Blood Urea Nitrogen 4 mg/dL (7-18); Bicarbonate 26 mmol/L (21-32); Bilirubin Total 0.7 mg/dL (0.2-1.0); Glucose Level 130 mg/dL (74-106); Magnesium 1.7 mg/dL (1.8-2.4); Phosphorus 3.6 mg/dL (2.5-4.9); Potassium 3.4 mmol/L (3.5-5.1); Sodium Level 136 mmol/L (136-145)
[2019-03-11] MEDS: INSULIN -REGULAR HUMAN 50 UNIT/0.5 ML ML SQ SCH ×4 (07:30→19:56)
[2019-03-11] MEDS: CAPTOPRIL 25 MG TABLET PO SCH (08:30)
[2019-03-11] MEDS: POTASSIUM CL SA 10 MEQ TAB PO ONE ×2 (08:31→09:00)
[2019-03-11] MEDS: POTASSIUM CL SA 10 MEQ TAB PO SCH ×2 (08:31→09:00)
[2019-03-11] MEDS: AMLODIPINE 5 MG TAB PO SCH (08:32)
[2019-03-11] MEDS: TRAMADOL HCL 50 MG TAB PO PRN ×2 (08:32→16:47)
[2019-03-11] MEDS: FLUCONAZOLE 100 MG TAB PO SCH (08:32)
[2019-03-11] MEDS ORDERED: POTASSIUM 25 MEQ EFFERV TAB PO ONE (09:00)
[2019-03-11] MEDS ORDERED: MAGNESIUM SULFATE 1 gm IVPB 1 GM/100 ML BAG IV ONE (09:00)
[2019-03-11] MEDS: ONDANSETRON 4 MG/2 ML VIAL IV PRN (11:10)
--- NOTE | 2019-03-11 13:02 | P.PN ---
Subjective Date of Service: 03/11/19 Primary Care Provider: None Chief Complaint: AMS Subjective: Improving Patient seen and examined at bedside. Daughter at bedside. Chart reveiwed and case discussed with nursing staff. Improved mentation this morning. He eating more, though still with paranoia. She did take her oral medications today. Overnight, patient's heart rate did drop down to the 30s. At the time of my exam, hemodynamically stable, asymptomatic. Review of Systems 10-point ROS is otherwise unremarkable Physical Examination - Vital Signs Temperature: 97.6 F Blood Pressure: 130/55 Pulse: 77 Respirations: 18 Pulse Ox (%): 94 - Physical Exam General: Alert, In no apparent distress, Oriented x3 HEENT: Atraumatic, PERRLA, EOMI Neck: Supple, JVD not distended Respiratory: Clear to auscultation bilaterally, Normal air movement Cardiovascular: Regular rate/rhythm, Normal S1 S2 Gastrointestinal: Normal bowel sounds, No tenderness Musculoskeletal: No tenderness Integumentary: No rashes Neurological: Normal speech, Normal tone, Normal affect Lymphatics: No axilla or inguinal lymphadenopathy - Studies Microbiology Data (last 24 hrs): 03/09/19 12:05 Catheterized Urine [place] Count - Final >100,000 CFU/ML. 03/09/19 12:05 Catheterized Urine - Final Assessment And Plan - Current Problems (Diagnosis) (1) Altered mental status Current Visit: Yes Status: Acute Plan: Altered mental status most likely secondary to Toxic encephalopathy secondary to urinary tract infection -currently patient is calm but continues to have some delusional thoughts along with hallucinations -Will continue with Haldol p.r.n. at this time and monitor patient here closely -treat underlying disease process Qualifiers: Altered mental status type: delirium Qualified Code(s): R41.0 - Disorientation, unspecified (2) Urinary tract infection Current Visit: Yes Status: Acute Plan: Urinary tract infection due to immobility -UA consistent with increasing yeast -will continue on IV antibiotics at this time -Diflucan for the yeast Qualifiers: Urinary tract infection type: acute cystitis Hematuria presence: without hematuria Qualified Code(s): N30.00 - Acute cystitis without hematuria (3) Generalized weakness Current Visit: No Status: Chronic Plan: Patient with generalized weakness most likely secondary to multiple myeloma -will get physical therapy consulted here in the hospital - Patient will likely benefit from further PT at a SNF. SW on board. (4) History of immunotherapy Current Visit: No Status: Chronic Plan: She will continue follow up with her oncologist in [place]. (5) History of malignant melanoma Current Visit: No Status: Chronic (6) Lumbar transverse process fracture Current Visit: No Status: Chronic Qualifiers: Encounter type: subsequent encounter Fracture type: closed Fracture healing: with delayed healing Qualified Code(s): S32.009G - Unspecified fracture of unspecified lumbar vertebra, subsequent encounter for fracture with delayed healing (7) Status post fall Current Visit: No Status: Chronic - Plan Disposition: pending symptomatic improvement. Continue IV antibiotics, anti- fungal. Pending placement
[2019-03-11] MEDS: JUVEN PACKET PO SCH (19:56)
[2019-03-12] MEDS: TRAMADOL HCL 50 MG TAB PO PRN ×3 (00:28→20:30)
[2019-03-12] MEDS: D5 0.9 NS 1,000 ML IV SCH ×2 (04:24→17:53)
[2019-03-12] MEDS: PIPER/TAZO/NS 2.25gm 2.25 GM/50 ML BAG IVPB SCH ×3 (05:15→17:53)
[2019-03-12] MEDS: LEVOTHYROXINE SOD 0.075 MG TAB PO SCH (05:15)
[2019-03-12 05:46] LABS: Absolute Lymphocytes (CBC) 2.3 K/uL (0.7-4.9); Basophils % 0.9 % (0-1.3); Hematocrit 28.7 % (36.0-45.0); Lymphocytes % 27.2 % (15.3-44.8); MPV 8.4 fL (7.6-11.3); RBC Red Blood Cell Count 3.34 M/uL (3.86-4.86)
[2019-03-12 06:01] LABS: ALT/SGPT 9 U/L (12-78); AST/SGOT 22 U/L (15-37); Albumin 2.3 g/dL (3.4-5.0); Alkaline Phosphatase 67 U/L (45-117); BUN Blood Urea Nitrogen 4 mg/dL (7-18); Bicarbonate 26 mmol/L (21-32); Bilirubin Total 0.4 mg/dL (0.2-1.0); Glucose Level 147 mg/dL (74-106); Magnesium 1.5 mg/dL (1.8-2.4); Phosphorus 3.3 mg/dL (2.5-4.9); Potassium 3.3 mmol/L (3.5-5.1); Protein, Total 5.7 g/dL (6.4-8.2); Sodium Level 138 mmol/L (136-145)
[2019-03-12] MEDS: INSULIN -REGULAR HUMAN 50 UNIT/0.5 ML ML SQ SCH ×4 (07:30→20:31)
[2019-03-12] MEDS ORDERED: POTASSIUM CL SA 10 MEQ TAB PO ONE ×3 (09:00→18:00)
[2019-03-12] MEDS ORDERED: Magnesium Sulfate 2gm IVPB 2 G/50 ML BAG IV ONE (09:00)
[2019-03-12] MEDS: JUVEN PACKET PO SCH ×2 (09:00→20:30)
[2019-03-12] MEDS: FLUCONAZOLE 100 MG TAB PO SCH (09:31)
[2019-03-12] MEDS: AMLODIPINE 5 MG TAB PO SCH (09:32)
[2019-03-12] MEDS: POTASSIUM CL SA 10 MEQ TAB PO SCH (09:33)
[2019-03-12] MEDS: CAPTOPRIL 25 MG TABLET PO SCH (09:39)
[2019-03-12] MEDS: ONDANSETRON 4 MG/2 ML VIAL IV PRN (09:53)
[2019-03-12] MEDS ORDERED: Pharmacy Consult 1 EA XX PRN (10:54)
--- NOTE | 2019-03-12 10:59 | P.PN ---
Subjective Date of Service: 03/12/19 (Hospitalist) Primary Care Provider: None Chief Complaint: AMS Condition stable no change Greenlandic-speaking only Review of Systems is unable to be obtained Physical Examination - Vital Signs Temperature: 98.1 F Blood Pressure: 137/63 Pulse: 84 Respirations: 15 Pulse Ox (%): 94 - Physical Exam General: Alert, Cooperative Respiratory: Clear to auscultation bilaterally Cardiovascular: Regular rate/rhythm, Normal S1 S2 - Studies Microbiology Data (last 24 hrs): 03/09/19 12:05 Catheterized Urine [place] Count - Final >100,000 CFU/ML. 03/09/19 12:05 Catheterized Urine - Final Assessment & Plan - Problems (Diagnosis) (1) Metastatic melanoma Current Visit: Yes Status: Acute Plan: Patient has a history of metastatic melanoma on immunotherapy patient has positive blood cultures admitted with altered mental status patient is eating and drinking (2) History of malignant melanoma Current Visit: No Status: Chronic (3) Bacteremia Current Visit: Yes Status: Acute Plan: Gram stain is positive kind of started patient on IV vancomycin continue with Zosyn until final culture results are available of order another set of blood cultures
[2019-03-12] MEDS ORDERED: VANCOMYCIN 1.5 GM in NA CHLORIDE 0.9% 500 ML IVPB ONE (12:00)
[2019-03-12 15:18] LABS: Potassium 3.7 mmol/L (3.5-5.1)
[2019-03-13] MEDS: VANCOMYCIN 1.25 GM in NA CHLORIDE 0.9% 250 ML IVPB SCH ×2 (00:24→12:24)
[2019-03-13] MEDS: PIPER/TAZO/NS 2.25gm 2.25 GM/50 ML BAG IVPB SCH ×4 (00:24→17:15)
[2019-03-13 06:04] LABS: Hematocrit 30.8 % (36.0-45.0); MPV 7.9 fL (7.6-11.3); RBC Red Blood Cell Count 3.58 M/uL (3.86-4.86)
[2019-03-13 06:19] LABS: BUN Blood Urea Nitrogen 3 mg/dL (7-18); Bicarbonate 25 mmol/L (21-32); Glucose Level 128 mg/dL (74-106); Potassium 3.8 mmol/L (3.5-5.1); Sodium Level 140 mmol/L (136-145)
[2019-03-13] MEDS: LEVOTHYROXINE SOD 0.075 MG TAB PO SCH (06:23)
[2019-03-13] MEDS: TRAMADOL HCL 50 MG TAB PO PRN (06:23)
[2019-03-13] MEDS: D5 0.9 NS 1,000 ML IV SCH (06:24)
[2019-03-13] MEDS: INSULIN -REGULAR HUMAN 50 UNIT/0.5 ML ML SQ SCH ×4 (07:30→20:50)
[2019-03-13] MEDS: POTASSIUM CL SA 10 MEQ TAB PO SCH (08:30)
[2019-03-13] MEDS: FLUCONAZOLE 100 MG TAB PO SCH (08:31)
[2019-03-13] MEDS: AMLODIPINE 5 MG TAB PO SCH (08:31)
[2019-03-13] MEDS: CAPTOPRIL 25 MG TABLET PO SCH (08:33)
[2019-03-13] MEDS: JUVEN PACKET PO SCH ×2 (08:33→20:50)
--- NOTE | 2019-03-13 08:52 | P.PN ---
Subjective Date of Service: 03/13/19 (Hospitalist) Primary Care Provider: None Chief Complaint: AMS Daughter at the bedside patient has a very poor appetite leading to be transferred to [facility] no new changes Review of Systems General: Weakness, Other (Poor appetite) Physical Examination - Vital Signs Temperature: 99.4 F Blood Pressure: 127/60 Pulse: 90 Respirations: 18 Pulse Ox (%): 96 - Physical Exam General: Alert, Cooperative Respiratory: Clear to auscultation bilaterally Cardiovascular: No edema, Regular rate/rhythm Assessment & Plan - Problems (Diagnosis) (1) Metastatic melanoma Current Visit: Yes Status: Acute Plan: No change poor appetite refusing nutritional supplements (2) Bacteremia Current Visit: Yes Status: Acute Plan: Repeat blood cultures are pending white count is normal pro calcitonin level was also normal most likely a contaminant
[2019-03-13] MEDS ORDERED: POTASSIUM 25 MEQ EFFERV TAB PO ONE (09:00)
[2019-03-14] MEDS: VANCOMYCIN 1.25 GM in NA CHLORIDE 0.9% 250 ML IVPB SCH (00:55)
[2019-03-14] MEDS: PIPER/TAZO/NS 2.25gm 2.25 GM/50 ML BAG IVPB SCH ×2 (00:55→06:06)
[2019-03-14] MEDS: LEVOTHYROXINE SOD 0.075 MG TAB PO SCH (06:05)
[2019-03-14 06:30] LABS: BUN Blood Urea Nitrogen 4 mg/dL (7-18); Bicarbonate 26 mmol/L (21-32); Glucose Level 80 mg/dL (74-106); Potassium 3.6 mmol/L (3.5-5.1); Sodium Level 140 mmol/L (136-145)
[2019-03-14] MEDS ORDERED: POTASSIUM 25 MEQ EFFERV TAB PO ONE (07:06)
[2019-03-14] MEDS: INSULIN -REGULAR HUMAN 50 UNIT/0.5 ML ML SQ SCH ×4 (07:30→21:00)
[2019-03-14] MEDS: CAPTOPRIL 25 MG TABLET PO SCH (07:36)
[2019-03-14] MEDS: POTASSIUM CL SA 10 MEQ TAB PO SCH (07:36)
[2019-03-14] MEDS: FLUCONAZOLE 100 MG TAB PO SCH (07:36)
[2019-03-14] MEDS: JUVEN PACKET PO SCH ×2 (07:37→21:00)
[2019-03-14] MEDS: AMLODIPINE 5 MG TAB PO SCH (07:37)
--- NOTE | 2019-03-14 15:37 | P.PN ---
Subjective Date of Service: 03/14/19 Primary Care Provider: None Chief Complaint: AMS Subjective: No new changes, No C/O voiced, Working w/ PT, Doing well Explained in Cambodian with dispatch officer regarding POC Review of Systems 10-point ROS is otherwise unremarkable Physical Examination - Vital Signs Temperature: 99.1 F Blood Pressure: 142/68 Pulse: 99 Respirations: 20 Pulse Ox (%): 92 - Physical Exam General: Alert, In no apparent distress HEENT: Atraumatic, PERRLA, EOMI Neck: Supple, JVD not distended Respiratory: Clear to auscultation bilaterally, Normal air movement Cardiovascular: Regular rate/rhythm, Normal S1 S2 Gastrointestinal: Normal bowel sounds, No tenderness Musculoskeletal: No tenderness Integumentary: No rashes Neurological: Normal speech, Normal tone, Normal affect Lymphatics: No axilla or inguinal lymphadenopathy - Studies Microbiology Data (last 24 hrs): 03/09/19 10:23 Blood - Blood Aerobic Blood Culture - Final No growth in 5 days. Medications List Reviewed: Yes Assessment And Plan - Current Problems (Diagnosis) (1) Altered mental status Current Visit: Yes Status: Acute Plan: Altered mental status most likely secondary to Toxic encephalopathy secondary to urinary tract infection. Now Resolved AAOx3 -Now resolved AAOx3 -Doing well Overall Qualifiers: Altered mental status type: delirium Qualified Code(s): R41.0 - Disorientation, unspecified (2) Urinary tract infection Current Visit: Yes Status: Acute Plan: Urinary tract infection High Risk due to Immobility -Urine culture + for Yeast -DC vanc and zosyn. Continue Diflucan -awaiting placement at the alf at this time Qualifiers: Urinary tract infection type: acute cystitis Hematuria presence: without hematuria Qualified Code(s): N30.00 - Acute cystitis without hematuria (3) Generalized weakness Current Visit: No Status: Chronic Plan: Patient with generalized weakness most likely secondary to multiple myeloma -physical therapy consulted here in the hospital (4) Lumbar transverse process fracture Current Visit: No Status: Chronic Qualifiers: Encounter type: subsequent encounter Fracture type: closed Fracture healing: with delayed healing Qualified Code(s): S32.009G - Unspecified fracture of unspecified lumbar vertebra, subsequent encounter for fracture with delayed healing (5) History of malignant melanoma Current Visit: No Status: Chronic - Plan Pending clinical placement at this time to the alf for [facility] facility Discharge Plan: [facility] Plan to discharge in: 48 Hours - Code Status/Comfort Care Code Status Assessed: Yes Critical Care: No
[2019-03-14] MEDS: TRAMADOL HCL 50 MG TAB PO PRN (17:25)
[2019-03-14] MEDS ORDERED: MIDODRINE HCL 5 MG TABLET PO ONE (20:42)
[2019-03-15] MEDS: LEVOTHYROXINE SOD 0.075 MG TAB PO SCH (05:52)
[2019-03-15 06:40] LABS: Potassium 3.7 mmol/L (3.5-5.1)
[2019-03-15] MEDS: INSULIN -REGULAR HUMAN 50 UNIT/0.5 ML ML SQ SCH ×2 (07:30→11:30)
[2019-03-15] MEDS: AMLODIPINE 5 MG TAB PO SCH ×3 (09:00→10:05)
[2019-03-15] MEDS: POTASSIUM CL SA 10 MEQ TAB PO SCH ×3 (09:00→10:04)
[2019-03-15] MEDS: JUVEN PACKET PO SCH (09:00)
[2019-03-15] MEDS: FLUCONAZOLE 100 MG TAB PO SCH ×3 (09:00→10:05)
[2019-03-15] MEDS: CAPTOPRIL 25 MG TABLET PO SCH ×3 (09:00→10:06)
[2019-03-15 10:23] VITALS: O2SAT 92
[2019-03-15 12:48] VITALS: BP 133/61; TEMP 98.7
--- NOTE | 2019-03-15 16:43 | P.DS ---
Admission Date: 03/09/19 Discharge Date: 03/15/19 Primary Care Provider: None Disposition: ROUTINE DISCHARGE Discharge Condition: GOOD Reason for Admission: AMS - Problems (1) Altered mental status Status: Acute Qualifiers: Altered mental status type: delirium Qualified Code(s): R41.0 - Disorientation, unspecified (2) Urinary tract infection Status: Acute Qualifiers: Urinary tract infection type: acute cystitis Hematuria presence: without hematuria Qualified Code(s): N30.00 - Acute cystitis without hematuria (3) Generalized weakness Status: Chronic (4) Lumbar transverse process fracture Status: Chronic Qualifiers: Encounter type: subsequent encounter Fracture type: closed Fracture healing: with delayed healing Qualified Code(s): S32.009G - Unspecified fracture of unspecified lumbar vertebra, subsequent encounter for fracture with delayed healing (5) History of malignant melanoma Status: Chronic Brief History of Present Illness: This is a 78-year-old female with significant past medical history of multiple myeloma with metastasis who presented to the ED with altered mental status. Patient's family at bedside stated that she has been having some hallucinations and altered mental status since this morning and has been very aggressive towards the family member and thus they decided to bring her to the ER. Patient also has been having some subjective fevers at home. Increased burning during urination. Patient was just recently admitted to the hospital couple of days ago after having a fall at the house and having a transfers process fracture. After which she was doing well overall with acute worsening this morning. Family denies having any other associated symptoms at this time patient only speaks Palauan however patient's daughter at bedside who was visiting her from [facility] states that she is not in her usual self at this time. In the ER patient was seen and was found to have hypotension along with lab work and imaging that were done which were consistent with possible urinary tract infection and thus patient was admitted to the hospital for further care. Patient has been taking some antibiotics at home however has not been helping her per family member Hospital Course: Overall during the stay patient stable Patient admitted to the hospital for if recurrent UTI with failed outpatient therapy. Patient was started on IV antibiotics while here in the hospital. Urine cultures were done along with blood cultures here in the hospital. Urine culture was negative for any bacterial growth however positive for 3+ yeast. Blood cultures remained negative. Patient then was switched over to Diflucan for yeast infection. Patient initially also had toxic encephalopathy. However and 48 to 72 hr had marked improvement. Was working with physical therapy while here in the hospital. At that time she was referred over [facility] facility to continue her physical therapy. Patient was accepted at [facility] and was transferred there for further care Vital Signs/Physical Exam: Temp Pulse Resp BP Pulse Ox 98.7 F 90 18 133/61 93 03/15/19 12:00 03/15/19 12:00 03/15/19 12:00 03/15/19 12:00 03/15/19 12:00 General: Alert, In no apparent distress HEENT: Atraumatic, PERRLA, EOMI Neck: Supple, JVD not distended Respiratory: Clear to auscultation bilaterally, Normal air movement Cardiovascular: Regular rate/rhythm, Normal S1 S2 Gastrointestinal: Normal bowel sounds, No tenderness Musculoskeletal: No tenderness Integumentary: No rashes Neurological: Normal speech, Normal tone, Normal affect Lymphatics: No axilla or inguinal lymphadenopathy Laboratory Data at Discharge: WBC 8.2 K/uL (4.3-10.9) 03/13/19 05:52 Hgb 10.1 g/dL (12.0-15.0) L 03/13/19 05:52 Hct 30.8 % (36.0-45.0) L 03/13/19 05:52 Plt Count 420 K/uL (152-406) H 03/13/19 05:52 PT 14.2 SECONDS (9.5-12.5) H 03/09/19 10:23 INR 1.21 03/09/19 10:23 APTT 32.1 SECONDS (24.3-36.9) 03/09/19 10:23 Sodium 140 mmol/L (136-145) 03/15/19 05:50 Potassium 3.7 mmol/L (3.5-5.1) 03/15/19 05:50 BUN 5 mg/dL (7-18) L 03/15/19 05:50 Creatinine 0.75 mg/dL (0.55-1.3) 03/15/19 05:50 Glucose 102 mg/dL (74-106) 03/15/19 05:50 Phosphorus 3.3 mg/dL (2.5-4.9) 03/12/19 05:16 Magnesium 2.0 mg/dL (1.8-2.4) D 03/12/19 14:54 Total Bilirubin 0.4 mg/dL (0.2-1.0) 03/12/19 05:16 AST 22 U/L (15-37) 03/12/19 05:16 ALT 9 U/L (12-78) L 03/12/19 05:16 Alkaline Phosphatase 67 U/L (45-117) 03/12/19 05:16 Home Medications: Amlodipine [Norvasc*] 5 mg PO DAILY 03/09/19 Bismuth Tribromoph/Petrolatum [Xeroform 5"X9" Gauze Strip] 1 jerod TOP DAILY 03/09 Captopril [Capoten*] 25 mg PO DAILY 03/09/19 Levothyroxine [Synthroid*] 75 mg PO DAILY 03/09/19 Metformin HCl [Glucophage*] 500 mg PO BID 03/09/19 Metronidazole/Skin Cleansr #23 [[place] 0.75% Gel Kit] 1 jerod TOP BID 03/09/19 Vitamin B Complex [B Complex] 1 tab PO DAILY 03/09/19 traMADol HCL [Ultram*] 50 mg PO Q6HP PRN 03/09/19 Fluconazole [Diflucan] 200 mg PO DAILY #14 tablet 03/15/19 New Medications: Fluconazole [Diflucan] 200 mg PO DAILY #14 tablet Diet: Regular Activity: Ad justina
== END 2019-03-15 14:30 | DRG 757 ==
LOC: ER 10:54 → ERHOLD 13:46 → 4TH 14:27
PROVIDERS: ADMIT Family Medicine; ATTEND Family Medicine
DX: B37.41 Candidal cystitis and urethritis (principal); G92 Toxic encephalopathy; C90.00 Multiple myeloma not having achieved remission; C79.9 Secondary malignant neoplasm of unspecified site; E03.9 Hypothyroidism, unspecified; E11.9 Type 2 diabetes mellitus without complications; I10 Essential (primary) hypertension; S32.009D Unspecified fracture of unspecified lumbar vertebra, subsequent encounter for fracture with routine healing; W19.XXXD Unspecified fall, subsequent encounter
CPT/HCPCS: 36415; 70450; 71045; 71250; 72170; 74176; 80048; 80053; 80076; 80202; 81003; 81015; 82550; 82962; 83605; 83735; 84100; 84132; 84145; 84484; 85025; 85027; 85610; 85730; 86850; 86900; 86901; 87040; 87086; 87088; 87205; 93005; 96365; 96375; 97110; 97116; 97161; 97163; 97167; 97530; 97760; 99285; G0378; J1100; J2270; J2405; J2543; J3010; J3475; J7030

== ENCOUNTER 2019-03-21 11:34 | Inpatient (IN) | payer OTHER ==
[2019-03-21 12:12] LABS: Absolute Lymphocytes (CBC) 2.9 K/uL (0.7-4.9); Basophils % 1.4 % (0-1.3); Hematocrit 34.2 % (36.0-45.0); Lymphocytes % 26.4 % (15.3-44.8); RBC Red Blood Cell Count 3.92 M/uL (3.86-4.86)
[2019-03-21 12:13] LABS: Protime INR 1.21
--- NOTE | 2019-03-21 12:26 | RAD REPORT ---
EXAM DESCRIPTION: [place] Single View03/21/2019 12:20 pm CLINICAL HISTORY: Shortness of breath COMPARISON: February 2019 FINDINGS: The lungs appear clear of acute infiltrate. The heart is normal size IMPRESSION: No acute abnormalities displayed
--- NOTE | 2019-03-21 12:34 | RAD REPORT ---
EXAM DESCRIPTION: CT - Head Brain Wo Cont - 03/21/2019 12:23 pm CLINICAL HISTORY: Alteration of awareness/ declining state COMPARISON: March 09, 2019 TECHNIQUE: Computed axial tomography of the head was obtained. IV contrast was not requested. All CT scans are performed using dose optimization technique as appropriate and may include automated exposure control or mA/KV adjustment according to patient size. FINDINGS: An intracranial bleed is not seen . The ventricles are normal in caliber. No extra-axial fluid collection is noted. Mild low-density areas within periventricular, deep and subcortical white matter likely represent is chemic changes secondary to small vessel disease. Fluid within the sinuses/ mastoids is not seen. IMPRESSION: No acute intracranial abnormality is seen. If patient's symptoms persist MRI of the bra in would be recommended.
[2019-03-21 12:35] LABS: ALT/SGPT 13 U/L (12-78); AST/SGOT 34 U/L (15-37); Albumin 2.7 g/dL (3.4-5.0); Alkaline Phosphatase 65 U/L (45-117); BUN Blood Urea Nitrogen 20 mg/dL (7-18); Bicarbonate 23 mmol/L (21-32); Bilirubin Direct 0.1 mg/dL (0-0.2); Bilirubin Total 0.4 mg/dL (0.2-1.0); Glucose Level 83 mg/dL (74-106); Magnesium 1.7 mg/dL (1.8-2.4); NT PRO-BNP 159 pg/mL (<450); Potassium 3.6 mmol/L (3.5-5.1); Protein, Total 7.4 g/dL (6.4-8.2); Sodium Level 138 mmol/L (136-145); Troponin (Emerg Dept Use Only) < 0.02 ng/mL (0.0-0.045)
[2019-03-21] MEDS ORDERED: CEFTRIAXONE/SWI 1gm 1 GM/10 ML SYR ONE (13:01)
[2019-03-21] MEDS ORDERED: NA CHLORIDE 0.9% 500 ML ONE (13:01)
[2019-03-21 13:25] LABS: CKMB Creatine Kinase MB < 1.0 ng/mL (0.3-3.6); Creatine Phosphokinase 154 U/L (26-192); Lipase 107 U/L (73-393)
[2019-03-21] MEDS ORDERED: MAGNESIUM SULFATE 1 gm IVPB 1 GM/100 ML BAG IV ONE (13:50)
[2019-03-21 13:55] LABS: Urine Blood NEGATIVE (NEG); Urine Glucose NEGATIVE (NEG); Urine Protein NEGATIVE (NEG)
[2019-03-21 14:18] LABS: Urine Amorphous Sediment 2+ /HPF (NONE SEEN); Urine Bacteria <20 /HPF (<20); Urine Culture Reflex Order REFLEXED; Urine Mucus 1+ /HPF (NONE SEEN); Urine RBC <5 /HPF (NONE SEEN)
--- NOTE | 2019-03-21 15:05 | ER ---
Nurse's Notes [facility] Name: Dot Berrios Age: 78 yrs Sex: Female : 1940 Arrival Date: 03/21/2019 Time: 11:39 Bed 18 Private MD: Diagnosis: Altered mental status, unspecified;Failure To Thrive Presentation: 03/21 11:43 Presenting complaint: EMS states: 78YO HF SENT [facility] FOR DECREASED APPETITE bp AND LETHARGY, UNKNOWN LAST NORMAL. Transition of care: patient was not received from another setting of care. Onset of symptoms is unknown. Risk Assessment: Do you want to hurt yourself or someone else? Patient reports no desire to harm self or others. Initial Sepsis Screen: Does the patient meet any 2 criteria? No. Patient's initial sepsis screen is negative. Does the patient have a suspected source of infection? No. Patient's initial sepsis screen is negative. Care prior to arrival: Glucose check: 105. 11:43 Method Of Arrival: EMS: [facility] bp 11:43 Acuity: STEPHANI 2 bp Triage Assessment: 11:46 General: Appears in no apparent distress. comfortable, Behavior is calm. Pain: Unable bp to use pain scale. EENT: No deficits noted. Neuro: Level of Consciousness is confused, lethargic, Oriented to none. Cardiovascular: No deficits noted. Respiratory: No deficits noted. GI: No signs and/or symptoms were reported involving the gastrointestinal system. : No signs and/or symptoms were reported regarding the genitourinary system. Derm: No deficits noted. Musculoskeletal: No deficits noted. Historical: - Allergies: 11:46 No Known Allergies; bp - PMHx: 11:46 MULTIPLE MYELOMA; Diabetes - NIDDM; Hypertension; melanoma; Thyroid problem; UTI; CVA; bp - Immunization history:: Adult Immunizations up to date. - Social history:: Smoking status: Patient/guardian denies using tobacco. - Ebola Screening: : No symptoms or risks identified at this time. Screenin:49 Abuse screen: Denies threats or abuse. Denies injuries from another. Nutritional bp screening: No deficits noted. Tuberculosis screening: No symptoms or risk factors identified. Fall Risk None identified. Assessment: 11:48 General: SEE TRIAGE NOTE. bp 13:14 Reassessment: IVF INFUSING. bp 14:43 Reassessment: ADMIT MD AT B/S. bp Vital Signs: 11:46 BP 131 / 56; Pulse 98; Resp 23; Temp 97; Pulse Ox 98% ; Weight 74.84 kg; bp 12:00 BP 127 / 53; Pulse 98; Resp 21; Pulse Ox 96% ; bp 13:00 BP 126 / 59; Pulse 96; Resp 22; Pulse Ox 97% ; bp 14:00 BP 138 / 53; Pulse 93; Resp 20; Pulse Ox 98% ; bp ED Course: 11:39 Patient arrived in ED. hj 11:40 Jonathon Ruelas MD is Attending Physician. kdr 11:43 Isaias Benavidez, SANGEETA is Primary Nurse. bp 11:45 Triage completed. bp 11:46 Arm band placed on. bp 11:49 Patient has correct armband on for positive identification. Placed in gown. Bed in low bp position. Call light in reach. Side rails up X2. 11:57 Initial lab(s) drawn, by me, sent to lab. Inserted saline lock: 22 gauge in right dh3 antecubital area, using aseptic technique. Blood collected. 12:06 EKG done, by satellite technician. reviewed by Jonathon Ruelas MD. at1 12:22 XRAY Chest (1 view) In Process Unspecified. EDMS 12:23 CT Head Brain wo Cont In Process Unspecified. EDMS 12:38 First set of blood cultures drawn by ny, add on labs drawn by me and sent to lab. dh3 12:55 Tobias Cox PA is PHCP. jr8 13:00 Second set of blood cultures drawn by ny. dh3 13:46 Straight cath inserted, using sterile technique, 16 Fr. Specimen obtained. Returned ss clear yellow urine. Patient tolerated well. 15:04 Ginny Garcia MD is Hospitalizing Provider. jr8 15:40 No provider procedures requiring assistance completed. Patient admitted, IV remains in bp place. Administered Medications: 13:00 Drug: NS 0.9% 500 ml Route: IV; Rate: bolus; Site: right antecubital; bp 15:41 Follow up: IV Status: Completed infusion; IV Intake: 500ml bp 13:00 Drug: Rocephin - (cefTRIAXone) 1 grams Route: IVPB; Infused Over: 30 mins; Site: right bp antecubital; 15:40 Follow up: IV Status: Completed infusion; IV Intake: 20ml bp 13:30 Drug: Magnesium Sulfate 1 grams Route: IVPB; Infused Over: 1 hrs; Site: right bp antecubital; 15:40 Follow up: IV Status: Completed infusion; IV Intake: 100ml bp Point of Care Testing: Blood Glucose: 12:45 Blood Glucose: 97 mg/dL; dh3 Ranges: Intake: 15:40 IV: 100ml; Total: 100ml. bp 15:40 IV: 20ml; Total: 120ml. bp 15:41 IV: 500ml; Total: 620ml. bp Output: 13:46 Urine: 120ml (Straight Cath); Total: 120ml. ss Outcome: 15:05 Decision to Hospitalize by Provider. enrike 15:39 Admitted to Med/surg accompanied by tech, family with patient, via stretcher, room 423, bp with chart, Report called to SANJIV RUTHERFORD 15:39 Condition: stable 15:39 Instructed on the need for admit. 16:23 Patient left the ED. bp Signatures: Dispatcher [employer] EDMS Jonathon Ruelas MD MD [facility] Marianela Thompson, SANGEETA RN Tobias Cox, PA PA jr8 Antionette Thomas, cpa tax EKG Tat1 Ricardo Castro, RN RN Madison Escoto [facility] Isaias Benavidez, RN RN bp
--- NOTE | 2019-03-21 15:06 | EDPHYS ---
Physician Documentation [facility] Name: Dot Berrios Age: 78 yrs Sex: Female : 1940 Arrival Date: 03/21/2019 Time: 11:39 Bed 18 Private MD: ED Physician Jonathon Ruelas HPI: 03/21 12:44 This 78 yrs old Female presents to ER via EMS with complaints of Decreased kdr Appetite. 12:44 Family states that the patient has had increasing weakness and decreased appetite for kdr the past 3-4 days. She was recently discharged from this facility s/p UTI. She had been sent from [facility] to [place] last Thursday. Over the last three days she has had poor PO intake and now appears mildly obtunded though she responds to being moved and is able to communicate with family who is present at the bedside. Onset: The symptoms/episode began/occurred gradually, 3 day(s) ago. Severity of symptoms: At their worst the symptoms were mild moderate just prior to arrival, in the emergency department the symptoms are worse. The patient has not experienced similar symptoms in the past. The patient has been recently seen by a physician: The patient has been recently been admitted at [facility], was discharged last week. Historical: - Allergies: 11:46 No Known Allergies; bp - PMHx: 11:46 MULTIPLE MYELOMA; Diabetes - NIDDM; Hypertension; melanoma; Thyroid problem; UTI; CVA; bp - Immunization history:: Adult Immunizations up to date. - Social history:: Smoking status: Patient/guardian denies using tobacco. - Ebola Screening: : No symptoms or risks identified at this time. ROS: 12:44 Constitutional: Negative for fever, chills, and weight loss, - obtained from family kdr Eyes: Negative for injury, pain, redness, and discharge, Cardiovascular: Negative for chest pain, palpitations, and edema, Respiratory: Negative for shortness of breath, cough, wheezing, and pleuritic chest pain, Abdomen/GI: Negative for abdominal pain, nausea, vomiting, diarrhea, and constipation, Back: Negative for injury and pain, Skin: Negative for injury, rash, and discoloration. 12:44 Neuro: Positive for altered mental status, weakness, The patient is slow to respond . Exam: 12:44 Constitutional: This is a well developed, well nourished patient who is slow to kdr respond and mildy obtunded but in no acute distress. Head/Face: Normocephalic, atraumatic. Eyes: Pupils equal round and reactive to light, extra-ocular motions intact. Lids and lashes normal. Conjunctiva and sclera are non-icteric and not injected. Cornea within normal limits. Periorbital areas with no swelling, redness, or edema. Neck: Trachea midline, no thyromegaly or masses palpated, and no cervical lymphadenopathy. Supple, full range of motion without nuchal rigidity, or vertebral point tenderness. No Meningismus. 12:44 ENT: Mouth: Oral mucosa: dry. Vital Signs: 11:46 BP 131 / 56; Pulse 98; Resp 23; Temp 97; Pulse Ox 98% ; Weight 74.84 kg; bp 12:00 BP 127 / 53; Pulse 98; Resp 21; Pulse Ox 96% ; bp 13:00 BP 126 / 59; Pulse 96; Resp 22; Pulse Ox 97% ; bp 14:00 BP 138 / 53; Pulse 93; Resp 20; Pulse Ox 98% ; bp MDM: 12:44 Data reviewed: vital signs, nurses notes, lab test result(s), radiologic studies. kdr Counseling: I had a detailed discussion with the patient and/or guardian regarding: the historical points, exam findings, and any diagnostic results supporting the discharge/admit diagnosis, lab results, radiology results. 12:56 Patient medically screened. enrike 15:03 ED course: Patient continues to have delirious episodes and failure to thrive. Had Dr. enrike Garcia see patient as well. Agrees that we should at least observe patient for now. Will get MRI. . 08 11:42 Order name: Basic Metabolic Panel; Complete Time: 13:04 kdr 03/21 11:42 Order name: CBC with Diff; Complete Time: 13:04 kdr 03/21 11:42 Order name: LFT's; Complete Time: 13:04 kdr 03/21 11:42 Order name: Magnesium; Complete Time: 13:04 kdr 03/21 11:42 Order name: NT PRO-BNP; Complete Time: 13:04 kdr 03/21 11:42 Order name: PT-INR; Complete Time: 13:04 kdr 03/21 11:42 Order name: Troponin (emerg Dept Use Only); Complete Time: 13:04 kdr 03/21 12:11 Order name: Blood Culture Adult (2) kdr 03/21 12:11 Order name: Ckmb; Complete Time: 13:34 kdr 03/21 12:11 Order name: CPK; Complete Time: 13:34 kdr 03/21 12:11 Order name: Lactate; Complete Time: 13:34 kdr 03/21 12:11 Order name: Lipase; Complete Time: 13:34 kdr 03/21 12:11 Order name: Procalcitonin; Complete Time: 14:01 kdr 03/21 12:11 Order name: Ptt, Activated; Complete Time: 14:01 kdr 03/21 11:42 Order name: XRAY Chest (1 view); Complete Time: 13:04 kdr 03/21 11:42 Order name: EKG; Complete Time: 11:44 kdr 03/21 11:42 Order name: Cardiac monitoring; Complete Time: 11:59 kdr 03/21 11:42 Order name: EKG - Nurse/Tech; Complete Time: 11:59 kdr 03/21 11:42 Order name: IV Saline Lock; Complete Time: 11:59 kdr 03/21 11:42 Order name: Labs collected and sent; Complete Time: 11:59 kdr 03/21 11:42 Order name: O2 Per Protocol; Complete Time: 11:59 kdr 03/21 12:11 Order name: CT Head Brain wo Cont; Complete Time: 13:04 kdr 03/21 12:11 Order name: Urine Microscopic Only; Complete Time: 14:26 kdr 03/21 12:52 Order name: Glucose, Ancillary Testing; Complete Time: 13:04 EDMS 03/21 13:51 Order name: Urine Dipstick--Ancillary (enter results); Complete Time: 14:01 ss 03/21 14:21 Order name: Urine Culture EDMS 03/21 14:33 Order name: MRI - Brain Wo Cont jr8 03/21 11:42 Order name: O2 Sat Monitoring; Complete Time: 11:59 kdr 03/21 12:11 Order name: Accucheck; Complete Time: 12:30 kdr 03/21 12:11 Order name: IV Saline Lock - Large Bore; Complete Time: 12:30 kdr 03/21 12:11 Order name: Urine Dipstick-Ancillary (obtain specimen); Complete Time: 13:47 kdr Administered Medications: 13:00 Drug: NS 0.9% 500 ml Route: IV; Rate: bolus; Site: right antecubital; bp 15:41 Follow up: IV Status: Completed infusion; IV Intake: 500ml bp 13:00 Drug: Rocephin - (cefTRIAXone) 1 grams Route: IVPB; Infused Over: 30 mins; Site: right bp antecubital; 15:40 Follow up: IV Status: Completed infusion; IV Intake: 20ml bp 13:30 Drug: Magnesium Sulfate 1 grams Route: IVPB; Infused Over: 1 hrs; Site: right bp antecubital; 15:40 Follow up: IV Status: Completed infusion; IV Intake: 100ml bp Point of Care Testing: Blood Glucose: 12:45 Blood Glucose: 97 mg/dL; dh3 Ranges: Critical Glucose Levels:Adult <50 mg/dl or >400 mg/dl <40 mg/dl or >180 mg/dl Disposition: 03/22 07:22 Co-signature as Attending Physician, Jonathon Ruelas MD I agree with the assessment and kdr plan of care. Disposition: 03/21/19 15:05 Hospitalization ordered by Ginny Garcia for Observation. Preliminary diagnosis are Altered mental status, unspecified, Failure To Thrive . - Bed requested for Telemetry/MedSurg (observation). - Status is Observation. bp - Condition is Stable. - Problem is new. - Symptoms are unchanged. UTI on Admission? No Signatures: Dispatcher [employer] EDMS Jenna Rowe Kevin, MD MD [facility] Tobias Cox PA PA jr8 Isaias Benavidez, RN RN bp Corrections: (The following items were deleted from the chart) 03/21 15:17 15:05 Hospitalization Ordered by Ginny Garcia MD for Observation. Preliminary diagnosis bd is Altered mental status, unspecified; Failure To Thrive . Bed requested for Telemetry/MedSurg (observation). Status is Observation. Condition is Stable. Problem is new. Symptoms are unchanged. UTI on Admission? No. jr8 16:23 15:17 03/21/2019 15:05 Hospitalization Ordered by Ginny Garcia MD for Observation. bp Preliminary diagnosis is Altered mental status, unspecified; Failure To Thrive . Bed requested for Telemetry/MedSurg (observation). Status is Observation. Condition is Stable. Problem is new. Symptoms are unchanged. UTI on Admission? No. bd
[2019-03-21] MEDS ORDERED: ONDANSETRON 4 MG/2 ML VIAL IV PRN (16:25)
[2019-03-21 17:44] LABS: Thyroid Stimulating Hormone 3.35 uIU/mL (0.360-3.740)
--- NOTE | 2019-03-21 17:56 | P.HP ---
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 Patient has had 3 admissions in the past month for similar complaints, along with a urinary tract infection. She was recently discharged from here on March 15 to a care home. She seemed to have been doing well until 3 days prior to admission. Per family, since then she has been progressively worsening with increased confusion, delirium, failure to thrive. She was not eating any food or drink anything. She was getting 1 more week. This patient is originally from [place], she was resting her treatment for her melanoma in dialysis. But since she has been in and out of the hospital so frequently in the past month, she has remained here in [place] at the care home to get stronger prior to return to [place] for further therapy for her malignant melanoma. Family was concerned as she was not eating or drinking anything since Thursday, therefore brought her to the emergency room. In the ER, she was hemodynamically stable, labs were stable, CT scan of the head was negative for any acute abnormalities. An MRI was ordered, pending. At the time of my exam, she continued to be weak and confused. She remained hemodynamically stable and did not seem like she is in any acute distress. Allergies No Known Drug Allergies Allergy (Unknown, Verified 02/27/19 14:24) Rash Home Medications: Amlodipine [Norvasc*] 5 mg PO DAILY 03/09/19 Bismuth Tribromoph/Petrolatum [Xeroform 5"X9" Gauze Strip] 1 jerod TOP DAILY 03/09 Captopril [Capoten*] 25 mg PO DAILY 03/09/19 Levothyroxine [Synthroid*] 75 mg PO DAILY 03/09/19 Metformin HCl [Glucophage*] 500 mg PO BID 03/09/19 Metronidazole/Skin Cleansr #23 [Rosadan 0.75% Gel Kit] 1 jerod TOP BID 03/09/19 Vitamin B Complex [B Complex] 1 tab PO DAILY 03/09/19 traMADol HCL [Ultram*] 50 mg PO Q6HP PRN 03/09/19 Fluconazole [Diflucan] 200 mg PO DAILY #14 tablet 03/15/19 - Past Medical/Surgical History Diabetic: Yes -: Diabetes -: Hypertension -: Melanoma, left leg -: Hypothyroidism -: Hip replacement, (metal daily) left hip (2012) - Family History Mother -: Heart disease, Diabetes Father -: Heart disease, Diabetes - Social History Alcohol use: No CD- Drugs: No Caffeine use: No Review of Systems 10-point ROS is otherwise unremarkable Physical Examination - Vital Signs Temperature: 98.2 F Blood Pressure: 140/64 Pulse: 96 Respirations: 20 Pulse Ox (%): 98 - Physical Exam General: In no apparent distress, Confused HEENT: Atraumatic, PERRLA, Mucous membr. moist/pink, EOMI, Sclerae nonicteric Neck: Supple, 2+ carotid pulse no bruit, No LAD, Without JVD or thyroid abnormality Respiratory: Clear to auscultation bilaterally, Normal air movement Cardiovascular: Regular rate/rhythm, Normal S1 S2 Gastrointestinal: Normal bowel sounds, No tenderness Musculoskeletal: No tenderness Integumentary: Other (Melanoma, left lower extremity) Neurological: Normal gait, Normal speech, Normal strength at 5/5 x4 extr, Normal tone, Normal affect Lymphatics: No axilla or inguinal lymphadenopathy - Studies Laboratory Data (last 24 hrs) 03/21/19 12:38: APTT 41.0 H 03/21/19 12:38: Lipase 107 03/21/19 11:57: PT 14.2 H, INR 1.21 03/21/19 11:57: WBC 10.8 D, Hgb 11.1 L, Hct 34.2 L, Plt Count 401 03/21/19 11:57: Sodium 138, Potassium 3.6, BUN 20 H, Creatinine 0.99, Glucose 83 , Magnesium 1.7 L, Total Bilirubin 0.4, AST 34, ALT 13, Alkaline Phosphatase 65 Assessment and Plan - Problems (Diagnosis) (1) Encephalopathy Current Visit: Yes Status: Acute Plan: Unsure of etiology. Does not seem to have any source of infection, CT scan of the head negative for any acute abnormalities. - this could be related to progression of her dementia. Per family, patient has not been diagnosed with any dementia in the past. - MRI ordered, pending to evaluate for any metastasis of the melanoma verses acute neurological process - will continue IV fluids at this time. - Patient is status post 1 dose of IV Rocephin in the ER. Will hold antibiotics at this time, until urine cultures come back. (2) Altered mental status Current Visit: No Status: Acute Qualifiers: Altered mental status type: delirium Qualified Code(s): R41.0 - Disorientation, unspecified (3) Generalized weakness Current Visit: No Status: Chronic Plan: Will get physical therapy evaluation, 1 more awake (4) History of immunotherapy Current Visit: No Status: Chronic (5) History of malignant melanoma Current Visit: No Status: Chronic Plan: Patient will continue outpatient follow up with her physician in [place] for further management for malignant melanoma treatment (6) Lumbar transverse process fracture Current Visit: No Status: Chronic Plan: Stable, continue to work with physical therapy Qualifiers: Encounter type: subsequent encounter Fracture type: closed Fracture healing: with delayed healing Qualified Code(s): S32.009G - Unspecified fracture of unspecified lumbar vertebra, subsequent encounter for fracture with delayed healing (7) Status post fall Current Visit: No Status: Chronic - Plan DVT prophylaxis: Lovenox GI prophylaxis: None Diet: Heart healthy Disposition: Pending symptomatic improvement. Also pending MRI. Will likely need discharge back to [place] where she came from, once medically cleared. Discharge Plan: Skilled Nursing - Advance Directives Does patient have a Living Will: No Does patient have a Durable POA for Healthcare: No Time Spent Managing Pts Care (In Minutes): 55
[2019-03-21] MEDS: NA CHLORIDE 0.9% 1,000 ML IV SCH (18:11)
[2019-03-21] MEDS: ENOXAPARIN 40 MG/0.4 ML SQ SCH (18:14)
--- NOTE | 2019-03-21 19:33 | RAD REPORT ---
EXAM DESCRIPTION: MRI - Brain Wo Cont - 03/21/2019 7:21 pm CLINICAL HISTORY: Alteration of consciousness/declining state COMPARISON: Head CT March 21, 2019 TECHNIQUE: Axial, sagittal, and coronal magnetic images of the brain were obtained. Contrast was not requested FINDINGS: No significant abnormal signal is present within the brain. Diffusion-weighted/ADC mapping does not reveal evidence of acute infarction. The ventricles are normal caliber. An extra-axial fluid collection is not present The sinuses and mastoids are clear. IMPRESSION: No acute abnormality is displayed
[2019-03-22] MEDS: NA CHLORIDE 0.9% 1,000 ML IV SCH ×4 (02:25→22:25)
[2019-03-22] MEDS ORDERED: GLUCAGON 1 MG/VIAL IM PRN (05:38)
[2019-03-22] MEDS ORDERED: D50W 25 GM/50 ML SYRINGE IV PRN (05:38)
[2019-03-22 05:46] LABS: Absolute Lymphocytes (CBC) 2.7 K/uL (0.7-4.9); Basophils % 1.4 % (0-1.3); Lymphocytes % 31.3 % (15.3-44.8); MPV 9.7 fL (7.6-11.3); RBC Red Blood Cell Count 3.54 M/uL (3.86-4.86)
[2019-03-22 06:07] LABS: Albumin 2.4 g/dL (3.4-5.0); Bilirubin Total 0.2 mg/dL (0.2-1.0); Magnesium 1.6 mg/dL (1.8-2.4); Phosphorus 4.4 mg/dL (2.5-4.9); Potassium 3.7 mmol/L (3.5-5.1); Protein, Total 6.6 g/dL (6.4-8.2)
[2019-03-22] MEDS: INSULIN -REGULAR HUMAN 50 UNIT/0.5 ML ML SQ SCH ×4 (07:30→21:00)
--- NOTE | 2019-03-22 07:38 | EKG ---
Test Date: 2019-03-21 Test Time: 11:52:08 Floor Framer: DONNIE MEASUREMENT RESULTS: Intervals: Rate: 99 CT: 158 QRSD: 100 QT: 434 QTc: 556 [place]: P: 52 CT: 158 QRS: 125 T: 37 INTERPRETIVE STATEMENTS: Normal sinus rhythm Right axis deviation Possible Right ventricular hypertrophy Prolonged QT Abnormal ECG Compared to ECG 03/09/2019 11:36:45 Prolonged QT interval now present Electronically Signed On 03-22-19 07:37:16 CDT by David Bragg
[2019-03-22] MEDS ORDERED: POTASSIUM 25 MEQ EFFERV TAB PO ONE (08:00)
[2019-03-22] MEDS ORDERED: MAGNESIUM SULFATE 1 gm IVPB 1 GM/100 ML BAG IV ONE (08:00)
[2019-03-22] MEDS: ENOXAPARIN 40 MG/0.4 ML SQ SCH (09:17)
[2019-03-22] MEDS: FLUCONAZOLE 100 MG TAB PO SCH (15:50)
--- NOTE | 2019-03-22 19:32 | PN ---
Date of Progress Note: 03/22/2019 Subjective: Patient seen and examined. Chart reviewed and case discussed with RN. Son at the bedside. No acute events overnight. Patient does not have any complaints, not very verbal today. Medications: List reviewed. Code Status: Full code. Physical Examination: Vital Signs: Temperature is 98.3, heart rate 102, blood pressure 136/54, respirations 20, O2 of 98% on 2 L via nasal cannula. GENERAL: Awake, alert, not oriented elderly female, ill-appearing. CV: S1, S2. Regular rate and rhythm. Peripheral pulses present. Respiratory: Diminished breath sounds at the bases. No wheezing or stridor. Gastrointestinal: Abdomen is soft, nontender, nondistended. Positive bowel sounds. Extremities: No clubbing, cyanosis, edema. Neuro: Nonfocal. Laboratory Data: Sodium 141, potassium 3.7, chloride is 108, CO2 of 23, BUN 15 , creatinine 0.77, glucose 95, calcium 10.9, phosphorus 4.4, magnesium 1.6, albumin 2.4. WBC 8.7, H and H 10.4 and 31, platelets 352, neutrophils 52%. Blood cultures, no growth to date. Urine cultures, no growth to date as well. Assessment And Plan: 1. Acute metabolic encephalopathy, unclear etiology, maybe related to worsening dementia versus possible metastases of the melanoma or possible cerebrovascular accident. MRI of the brain done yesterday shows no acute abnormality. No evidence of acute infarction. Urine culture and blood cultures negative. 2. Generalized weakness. We will continue with physical therapy. 3. History of malignant melanoma. Patient has not seen a physician in [place]. The patient has received immunotherapy. 4. Transverse lumbar process fracture, closed with delayed healing, subsequent encounter stable. We will continue with PT. 5. Status post fall. Plan: Discharge back to [place] once more stable and back to her baseline. Workup to date is negative. CVA has been ruled out, malignant mass from melanoma to the brain has been ruled out. SA/MODL Voice ID: [id number] Report ID: [id number] MTDD
[2019-03-22] MEDS: SKIN CLEANSR TOP SCH (21:00)
[2019-03-22] MEDS: METRONIDAZOLE TOP SCH (21:00)
[2019-03-22] MEDS: TRAMADOL HCL 50 MG TAB PO PRN (21:09)
[2019-03-23] MEDS: NA CHLORIDE 0.9% 1,000 ML IV SCH ×3 (00:33→18:25)
[2019-03-23 05:25] LABS: Absolute Lymphocytes (CBC) 2.3 K/uL (0.7-4.9); Basophils % 1.1 % (0-1.3); Hematocrit 27.6 % (36.0-45.0); Lymphocytes % 31.1 % (15.3-44.8); MPV 9.2 fL (7.6-11.3); RBC Red Blood Cell Count 3.13 M/uL (3.86-4.86)
[2019-03-23 05:46] LABS: Albumin 2.3 g/dL (3.4-5.0); Bilirubin Total 0.3 mg/dL (0.2-1.0); Magnesium 1.6 mg/dL (1.8-2.4); Potassium 3.5 mmol/L (3.5-5.1); Protein, Total 6.4 g/dL (6.4-8.2)
[2019-03-23] MEDS: LEVOTHYROXINE SOD 0.075 MG TAB PO SCH (06:43)
[2019-03-23] MEDS: INSULIN -REGULAR HUMAN 50 UNIT/0.5 ML ML SQ SCH ×4 (07:30→21:00)
[2019-03-23] MEDS ORDERED: MAGNESIUM SULFATE 1 gm IVPB 1 GM/100 ML BAG IV ONE (08:00)
[2019-03-23] MEDS ORDERED: FLUCONAZOLE 200 MG PO SCH (09:00)
[2019-03-23] MEDS: METRONIDAZOLE TOP SCH ×2 (09:00→21:00)
[2019-03-23] MEDS: SKIN CLEANSR TOP SCH ×2 (09:00→21:00)
[2019-03-23] MEDS: SERTRALINE HCL 50 MG TAB PO SCH ×3 (09:00→10:36)
[2019-03-23] MEDS: CAPTOPRIL 25 MG TABLET PO SCH ×3 (09:00→10:37)
[2019-03-23] MEDS: AMLODIPINE 5 MG TAB PO SCH ×3 (09:00→10:36)
[2019-03-23] MEDS: FLUCONAZOLE 100 MG TAB PO SCH ×3 (09:00→10:36)
[2019-03-23] MEDS: POTASSIUM CL SA 10 MEQ TAB PO ONE ×2 (09:00→09:31)
[2019-03-23] MEDS: ENOXAPARIN 40 MG/0.4 ML SQ SCH (09:31)
[2019-03-23] MEDS: MEGESTROL 400 MG/10 ML UCUP PO SCH ×2 (10:07→21:53)
[2019-03-23] MEDS ORDERED: KCL 20 MEQ/100 mL IVPB 20 MEQ/100 ML BAG IV SCH (11:00)
[2019-03-23] MEDS: ACETIC ACID 0.25% IRRIG IRR SCH ×2 (21:00)
[2019-03-23] MEDS: TRAMADOL HCL 50 MG TAB PO PRN (21:52)
[2019-03-24 06:10] LABS: Absolute Lymphocytes (CBC) 2.1 K/uL (0.7-4.9); Basophils % 0.4 % (0-1.3); Hematocrit 25.3 % (36.0-45.0); Lymphocytes % 31.8 % (15.3-44.8)
[2019-03-24] MEDS: TRAMADOL HCL 50 MG TAB PO PRN (06:27)
[2019-03-24] MEDS: LEVOTHYROXINE SOD 0.075 MG TAB PO SCH (06:28)
[2019-03-24 06:30] LABS: ALT/SGPT 7 U/L (12-78); AST/SGOT 24 U/L (15-37); Albumin 2.1 g/dL (3.4-5.0); Alkaline Phosphatase 48 U/L (45-117); BUN Blood Urea Nitrogen 6 mg/dL (7-18); Bicarbonate 23 mmol/L (21-32); Bilirubin Total 0.2 mg/dL (0.2-1.0); Glucose Level 118 mg/dL (74-106); Potassium 3.4 mmol/L (3.5-5.1); Protein, Total 5.9 g/dL (6.4-8.2); Sodium Level 143 mmol/L (136-145)
[2019-03-24] MEDS: INSULIN -REGULAR HUMAN 50 UNIT/0.5 ML ML SQ SCH ×4 (07:30→21:00)
[2019-03-24] MEDS ORDERED: POTASSIUM 25 MEQ EFFERV TAB PO ONE (09:00)
[2019-03-24] MEDS: METRONIDAZOLE TOP SCH ×2 (09:00→21:00)
[2019-03-24] MEDS: ACETIC ACID 0.25% IRRIG IRR SCH ×2 (09:00→21:00)
[2019-03-24] MEDS: SKIN CLEANSR TOP SCH ×2 (09:00→21:00)
[2019-03-24] MEDS: NA CHLORIDE 0.9% 1,000 ML IV SCH ×2 (09:38→21:50)
[2019-03-24] MEDS: MEGESTROL 400 MG/10 ML UCUP PO SCH (09:38)
[2019-03-24] MEDS: FLUCONAZOLE 100 MG TAB PO SCH (09:39)
[2019-03-24] MEDS: CAPTOPRIL 25 MG TABLET PO SCH (09:39)
[2019-03-24] MEDS: AMLODIPINE 5 MG TAB PO SCH (09:39)
[2019-03-24] MEDS: SERTRALINE HCL 50 MG TAB PO SCH (09:39)
[2019-03-24] MEDS: ENOXAPARIN 40 MG/0.4 ML SQ SCH (09:40)
[2019-03-24] MEDS ORDERED: MAGNESIUM SULFATE 1 gm IVPB 1 GM/100 ML BAG IV ONE (10:16)
--- NOTE | 2019-03-24 11:32 | DS ---
Date of service 03/23/19 Admitting Diagnoses: 1. Acute metabolic encephalopathy. 2. Generalized weakness. 3. History of malignant melanoma, on immunotherapy. 4. Lumbar transverse process fracture closed with delayed healing, subsequent encounter. 5. Status post fall. Discharge Diagnoses: 1. Acute metabolic encephalopathy, improving. 2. Generalized weakness. 3. History of malignant melanoma, on immunotherapy. 4. Transverse lumbar process fracture closed with delayed healing, subsequent encounter. 5. Status post fall. 6. Hypomagnesemia, replaced. Hospital Course: Patient is a 78-year-old female, recently discharged to alf facility. Patient has had multiple admissions in past couple of months, comes in with altered mental status. Patient had decline in her status, was not eating or drinking anything, had confusion, failure to thrive, not her baseline mental status. Patient was started on IV fluids. Etiology for her decline in status was worked up, was unclear; however, MRI of the brain was done to rule out any metastatic lesions. MRI was negative. There was no acute stroke. Her TSH was normal. She was not septic. White count was normal. Her blood cultures did not show any growth. Urine culture also did not show any growth. She has been on fluconazole for yeast and the urine culture from previous admission, which was continued. Patient did start to wake up. She was able to answer questions appropriately. Did not complain of any pain. She continues to have weakness. Physical Therapy was also consulted. I explained to the son that this is likely due to her chronic condition and she may benefit from appetite stimulant such as Megace. He understands that he will need to push fluids and food for the patient and to encourage p.o. intake as by herself. She is not eating a significant amount. Patient was able to tolerate her diet. She denies any nausea or vomiting. Patient was then transferred back to alf facility in a stable condition. Activity: Fall precautions. Diet: Diabetic. Followup: Follow up with primary care physician in 2 to 3 days. Follow up with neurologist, Dr. Luciano in 2 weeks. Return to ER for worsening condition. Medications: As per medication reconciliation list. Physical Examination: General: Awake, alert, oriented to self, not in any acute distress, elderly female. CV: S1, S2. Respiratory: Moving air well bilaterally. Abdomen: Soft, nontender, nondistended. Positive bowel sounds. Extremities: No clubbing, cyanosis. Patient has pedal edema. Neurologic: Nonfocal. Skin: Patient has lesions on both legs from her malignancy wrapped. /WILFREDO Voice ID: [id number] Report ID: [id number] MTDD
--- NOTE | 2019-03-24 17:08 | PN ---
Date of Progress Note: 03/24/2019 Subjective: Patient is seen and examined. Chart reviewed and case discussed with RN. Patient much more awake and alert today. Per son, the appetite has improved. Medications: List reviewed. Physical Examination: Vital Signs: Temperature 98.1, heart rate 84, blood pressure 128/61, respirations 28, O2 99% on room air. General: Awake, alert, oriented x2. No acute distress, elderly female. CV: S1, S2. Peripheral pulses present. Respiratory: Moving air well bilaterally. No wheezing or stridor. Gastrointestinal: Abdomen is soft, nontender, nondistended. Positive bowel sounds. Extremities: No clubbing, cyanosis, or edema. Skin: Patient has multiple lesions on her bilateral lower extremities with some fungating changes an d odor. Neurologic: Nonfocal. Laboratory Data: Sodium 143, potassium 3.4, chloride 113, CO2 is 23, BUN 6, creatinine 0.59, glucose 118, calcium 9.7, magnesium 1.5. WBC 6.6, H and H of 8.3 and 25.3, platelets 317. Blood cultures, no growth to date. Urine cultures, no growth on final. Assessment: A 78-year-old female with: 1.Acute metabolic encephalopathy, resolved. 2.Generalized weakness, improving. Continue with PT. 3.History of malignant melanoma. 4.Transverse lumbar process fracture closed with delayed healing, subsequent encounter. 5.Status post fall. 6.Hypomagnesemia, replaced. Plan: Discharge back to nursing facility once reauthorized. /WILFREDO Voice ID: [id number] Report ID: [id number]
[2019-03-24] MEDS ORDERED: LORazepam 2 MG/ML VIAL IV ONE (18:11)
[2019-03-24 18:24] LABS: Absolute Lymphocytes (CBC) 2.8 K/uL (0.7-4.9); Basophils % 0.6 % (0-1.3); Hematocrit 33.3 % (36.0-45.0); Lymphocytes % 26.3 % (15.3-44.8); MPV 9.3 fL (7.6-11.3)
[2019-03-24] MEDS ORDERED: CEFEPIME 1 GM/VIAL IV SCH (18:30)
[2019-03-24 18:33] LABS: Potassium 4.2 mmol/L (3.5-5.1)
--- NOTE | 2019-03-24 18:44 | RAD REPORT ---
EXAM DESCRIPTION: RAD - Chest Single View - 03/24/2019 6:20 pm CLINICAL HISTORY: Tremors, shortness of breath COMPARISON: March 21 TECHNIQUE: AP portable chest image was obtained 1817 hours . FINDINGS: Interstitial and alveolar opacities have developed in both lung bases worse on the right. Overall interstitial pattern remains prominent. Heart and vasculature are normal. No measurable pleur al effusion and no pneumothorax. No acute bony abnormality seen. No acute aortic findings suspected. IMPRESSION: Bilateral lung base airspace opacification suspicious for pneumonia.
--- NOTE | 2019-03-24 19:07 | RAD REPORT ---
EXAM DESCRIPTION: US - Extrem Venous W Compress Buster - 03/24/2019 6:59 pm CLINICAL HISTORY: Leg pain and swelling COMPARISON: None. TECHNIQUE: Real-time sonographic evaluation of the bilateral lower extremity common femoral, superfi cial femoral, popliteal and posterior tibial veins was performed. FINDINGS: Normal compressibility, flow augmentation, phasic flow and spontaneous flow are identified in the left and right lower extremity common femoral, superficial femoral, popliteal and posterior t ibial veins. No intraluminal filling defects seen. Exam was technically limited. Patient had difficu lty holding still for the examination. IMPRESSION: No DVT in either lower extremity.
--- NOTE | 2019-03-24 19:15 | P.PN ---
Subjective Date of Service: 03/24/19 Primary Care Provider: Ruy Sahu Chief Complaint: Altered mental status Subjective: Other (Rapid response due to tremors. Patient had tremors. Patient was alert and able to move all 4s. She was able to speak appropriately. Erythema noted to the left lower extremity. Slight congestion noted bilateral.) Physical Examination - Vital Signs Temperature: 99.1 F Blood Pressure: 146/48 Pulse: 116 Respirations: 20 Pulse Ox (%): 93 - Physical Exam General: Alert, Oriented x2, Cooperative, Mild distress, Other (Patient with tremors) HEENT: Atraumatic Neck: Supple Respiratory: Crackles/rales (Crackles to the bases bilateral) Cardiovascular: Abnormal pulses (Mild tachycardia sinus) Gastrointestinal: Normal bowel sounds, Soft and benign, Non-distended, No tenderness, No masses, No rebound, No guarding Musculoskeletal: Other (Swelling to the left lower extremity greater than the right. Mild erythema to the left lower extremity. Patient with malignant melanoma with tumors to the left lower extremity.) Neurological: Other (Patient with tremors) Other Physical/Emotional Findings: White count 10.5, hemoglobin 10.8. Lactic acid 2.3. Chest x-ray showed opacities bilateral suspect pneumonia. Venous Doppler negative for DVT. - Studies Medications List Reviewed: Yes Assessment & Plan Discharge Plan: Home Plan to discharge in: Greater than 2 days - Code Status/Comfort Care Code Status Assessed: Yes (Patient is full code) Physician Review Additional Text: Impression: Tremors with mild shortness of breath suspect bilateral pneumonia Left lower extremity cellulitis complicated with tumors to the left lower extremity secondary to malignant melanoma Metabolic encephalopathy Plan: Tremors with mild shortness of breath suspect bilateral pneumonia: Patient with tremors likely rigors related to pneumonia and left lower extremity cellulitis. Patient be transferred to the ICU for close monitoring. Will maintain sats above 90%. Antibiotic-vancomycin and cefepime have been initiated. Will obtain blood cultures. Lactic acid elevated. Will continue with IV fluids. Will provide medication for cough. Encourage incentive spirometer. Recheck chest x-ray tomorrow. Medications reviewed. Will discontinue Diflucan and Megace. Case discussed with Dr. Ryder and a son who was at bedside. Recheck lactic acid tomorrow. Will monitor for sepsis. Left lower extremity cellulitis complicated with tumors to the left lower extremity secondary to malignant melanoma: Erythema noted to the left lower extremity. Suspect early cellulitis. Will continue with antibiotics as above- vancomycin and cefepime. Blood cultures obtained. Will elevate leg when sitting or lying. Patient with malignant melanoma. Patient visiting in the area. Patient gets her care in [facility]. Her health has declined over the past several months. Patient would likely benefit skilled placement at discharge. Metabolic encephalopathy: This appears resolving. MRI/CT head brain negative. Continue as above. Critical care provided: 45 min Time Spent Managing Pts Care (In Minutes): 55
[2019-03-24] MEDS: CEFEPIME/SWI 1gm 10 ML IVP SCH (21:30)
[2019-03-24 21:44] LABS: Arterial Blood Carboxyhemoglob 1.2 % (0-1.5); Blood Gas Oxyhemoglobin 95.6 % (94-97); Blood O2 Saturation 97.6 % (92-98.5)
[2019-03-24] MEDS: VANCOMYCIN 1.25 GM in NA CHLORIDE 0.9% 250 ML IVPB SCH (21:45)
[2019-03-25] MEDS: NA CHLORIDE 0.9% 1,000 ML IV SCH (00:25)
[2019-03-25 06:01] LABS: Absolute Lymphocytes (CBC) 2.1 K/uL (0.7-4.9); Basophils % 0.5 % (0-1.3); Hematocrit 27.2 % (36.0-45.0); Lymphocytes % 14.4 % (15.3-44.8); MPV 9.1 fL (7.6-11.3); RBC Red Blood Cell Count 3.16 M/uL (3.86-4.86)
[2019-03-25 06:18] LABS: Magnesium 1.5 mg/dL (1.8-2.4); Potassium 3.6 mmol/L (3.5-5.1)
[2019-03-25] MEDS: INSULIN -REGULAR HUMAN 50 UNIT/0.5 ML ML SQ SCH ×4 (07:30→21:00)
[2019-03-25] MEDS ORDERED: Magnesium Sulfate 2gm IVPB 2 G/50 ML BAG IV ONE (08:56)
[2019-03-25] MEDS: ACETIC ACID 0.25% IRRIG IRR SCH (09:00)
[2019-03-25] MEDS: METRONIDAZOLE TOP SCH ×2 (09:00→20:31)
[2019-03-25] MEDS: CAPTOPRIL 25 MG TABLET PO SCH (09:00)
[2019-03-25] MEDS ORDERED: VANCOMYCIN 1 GM in NA CHLORIDE 0.9% 500 ML IVPB SCH (09:00)
[2019-03-25] MEDS: AMLODIPINE 5 MG TAB PO SCH (09:00)
[2019-03-25] MEDS: SKIN CLEANSR TOP SCH ×2 (09:00→20:31)
[2019-03-25] MEDS: LEVOTHYROXINE SOD 0.075 MG TAB PO SCH (10:26)
[2019-03-25] MEDS: ENOXAPARIN 40 MG/0.4 ML SQ SCH (10:26)
[2019-03-25] MEDS: SERTRALINE HCL 50 MG TAB PO SCH (10:26)
[2019-03-25] MEDS: CEFEPIME/SWI 1gm 10 ML IVP SCH (10:26)
[2019-03-25] MEDS: NACHLORIDE 0.45% 1,000 ML IV SCH (10:27)
[2019-03-25] MEDS: TRAMADOL HCL 50 MG TAB PO PRN (11:25)
--- NOTE | 2019-03-25 12:40 | P.CNS ---
Date of Consult: 03/25/19 Reason for Consult: Altered mental status possible pneumonia Primary Care Provider: Ruy Sahu Chief Complaint: Altered mental status History of Present Illness: Patient is 78 years of age with a history of malignant melanoma with metastases was brought to the emergency room with altered mental status the [facility] recently here was discharged to [facility] patient was receiving immunotherapy for her melanoma at condition has become progressively worse more confusion delirium not eating and drinking and becoming progressively weak patient is currently unresponsive not in acute distress chest x-ray possible pneumonia Allergies No Known Drug Allergies Allergy (Unknown, Verified 02/27/19 14:24) Rash Home Medications: Amlodipine [Norvasc*] 5 mg PO DAILY 03/09/19 Bismuth Tribromoph/Petrolatum [Xeroform 5"X9" Gauze Strip] 1 jerod TOP DAILY 03/09 Captopril [Capoten*] 25 mg PO DAILY 03/09/19 Levothyroxine [Synthroid*] 75 mg PO DAILY 03/09/19 Metformin HCl [Glucophage*] 500 mg PO BID 03/09/19 Metronidazole/Skin Cleansr #23 [Rosadan 0.75% Gel Kit] 1 jerod TOP BID 03/09/19 Vitamin B Complex [B Complex] 1 tab PO DAILY 03/09/19 traMADol HCL [Ultram*] 50 mg PO Q6HP PRN 03/09/19 Fluconazole [Diflucan] 200 mg PO DAILY #14 tablet 03/15/19 Mirtazapine [Remeron*] 15 mg PO BEDTIME 03/21/19 Sertraline [Zoloft*] 50 mg PO DAILY 03/22/19 Megestrol [Megace*] 10 ml PO BID #60 ucup 03/23/19 - Past Medical/Surgical History Diabetic: Yes -: Diabetes -: Hypertension -: Melanoma, left leg -: Hypothyroidism -: Hip replacement, (metal daily) left hip (2012) - Family History Mother Medical History: Heart disease, Diabetes Father Medical History: Heart disease, Diabetes - Social History Smoking Status: Never smoker Alcohol use: No CD- Drugs: No Caffeine use: No Place of Residence: [facility] Review of Systems is unable to be obtained Physical Examination Temp Pulse Resp BP Pulse Ox 98.4 F 94 H 20 113/44 L 96 03/25/19 08:00 03/25/19 11:00 03/25/19 11:00 03/25/19 11:00 03/25/19 11:00 General: Unresponsive Neck: Supple Respiratory: Clear to auscultation bilaterally Cardiovascular: No edema, Regular rate/rhythm, Normal S1 S2 Gastrointestinal: Normal bowel sounds, Soft and benign Musculoskeletal: No clubbing, No swelling Integumentary: Skin breakdown, Skin lesion Laboratory Data (last 24 hrs) 03/25/19 05:46: WBC 14.5 H D, Hgb 8.9 L, Hct 27.2 L D, Plt Count 336 03/25/19 05:46: Sodium 147 H, Potassium 3.6, BUN 7, Creatinine 0.73, Glucose 133 H, Magnesium 1.5 L 03/24/19 18:11: Sodium 139, Potassium 4.2, BUN 6 L, Creatinine 0.71, Glucose 153 H 03/24/19 18:11: WBC 10.5 D, Hgb 10.8 L D, Hct 33.3 L D, Plt Count 407 H D 03/24/19 14:53: Potassium 3.7 - Problems (1) Encephalopathy Current Visit: Yes Status: Acute Plan: Patient is 78 years of age admitted with altered mental status extensive workup so far is negative possible bilateral lower lobe pneumonia she has a metastatic melanoma treated with immunotherapy has had progressive decline labs shows mild hypernatremia normal pro calcitonin level anemic white count is mildly elevated brain MRIs negative oxygenation satisfactory by ABGs not sure of the cause of her encephalopathy I also recommend some IV thymine continue with vancomycin and cefepime prognosis very poor consider a DNR
--- NOTE | 2019-03-25 13:06 | PN ---
Date of Progress Note: 03/25/2019 Subjective: Patient seen and examined. Chart reviewed and case discussed with RN. Patient had rapi d response yesterday evening where she began to have tremors. No seizure-type activity was noted. Jaspal castillo's labs revealed elevated lactate level. Chest x-ray showed bilateral lung airspace opacificat ions suspicious for pneumonia. Patient was moved to the ICU for close monitoring. Medications: List reviewed. Physical Examination: Vital Signs: Temperature 98.3, heart rate 102, blood pressure 124/45, respirations 20, O2 97% on 3 L via nasal cannula. General: Awake, alert, oriented, not in any acute distress. Elderly female, appears somewhat lethar gic. CV: S1, S2. Regular rate and rhythm. Peripheral pulses present. Respiratory: Diminished breath sounds at the bases. Gastrointestinal: Abdomen is soft, nontender, nondistended. Positive bowel sounds. Extremities: No clubbing or cyanosis. The patient has some mild edema. Skin: Patient has cancer lesions on her legs with fungating mass. No erythema. Laboratory Data: WBC 14.5, H and H 8.9 and 27.2, platelets 336. Sodium 147, potassium 3.6, chloride 116, CO2 22, BUN 7, creatinine 0.73, glucose 133, lactate yesterday was 2.3, repeat lactate is 1.6 a nd 1.2. Calcium 9.7, magnesium 1.5. Repeat blood cultures pending. Initial blood culture showed no growth to date. Chest x-ray shows bilateral lung base airspace opacifications suspicious for pneumo bibi. Doppler sonogram bilateral lower extremity shows no DVT in either lower extremity. Assessment And Plan: A 78-year-old female with: 1.Acute metabolic encephalopathy, likely related to pneumonia. 2.Tremors, resolved. 3.Generalized weakness. Patient not really working well with PT. 4.Pneumonia, bibasilar pneumonia. We will continue with vancomycin and cefepime. Follow up on cult ures. 5.Status post fall. 6.Hypomagnesemia. We will replace and monitor. 7.Transverse lumbar process fracture closed with delayed healing, subsequent encounter. 8.Left lower extremity cellulitis, complicated with tumors to the extremity with malignant melanoma. We will continue with wound care. Continue IV antibiotics. 9.Deep vein thrombosis prophylaxis with Lovenox. Plan: Overall poor prognosis. May consider hospice for patient if family is willing. For now, we w ill continue with PT, IV antibiotics, step down from ICU, and return to detention facility once reauthorized. ELENA Voice ID: [id number] Report ID: [id number]
--- NOTE | 2019-03-25 17:32 | RAD REPORT ---
EXAM DESCRIPTION: RAD - Chest Single View - 03/25/2019 5:24 pm CLINICAL HISTORY: PICC line placement COMPARISON: Chest Single View dated 03/24/2019; Chest Single View dated 03/21/2019; Chest Single View da javi 03/09/2019; Chest Single View dated 03/04/2019 FINDINGS: Portable chest was obtained following placement of a left upper extremity PICC line. The c atheter tip projects over the SVC.
[2019-03-25] MEDS: THIAMINE 200 MG/2 ML INJ IVP SCH (17:39)
[2019-03-25 19:21] LABS: Arterial Blood Carboxyhemoglob 0.9 % (0-1.5); Blood Gas Oxyhemoglobin 97.6 % (94-97); Blood O2 Saturation 99.1 % (92-98.5)
--- NOTE | 2019-03-25 20:00 | RAD REPORT ---
EXAM DESCRIPTION: RAD - Abdomen 1 View (KUB) - 03/25/2019 7:54 pm CLINICAL HISTORY: dobhoff placement Pain COMPARISON: No comparisons FINDINGS: The enteric tube is in the stomach.
[2019-03-25] MEDS: VANCOMYCIN 1.25 GM in NA CHLORIDE 0.9% 250 ML IVPB SCH (20:29)
[2019-03-25] MEDS ORDERED: POTASSIUM 25 MEQ EFFERV TAB PO ONE (22:32)
[2019-03-25] MEDS: ACETIC ACID 0.25% IRRIG TOP SCH (22:51)
[2019-03-26] MEDS: NACHLORIDE 0.45% 1,000 ML IV SCH (02:30)
[2019-03-26 05:47] LABS: Basophils % 0.8 % (0-1.3); Hematocrit 24.4 % (36.0-45.0); Lymphocytes % 15.9 % (15.3-44.8); MPV 9.6 fL (7.6-11.3); RBC Red Blood Cell Count 2.79 M/uL (3.86-4.86)
[2019-03-26 05:58] LABS: Magnesium 1.9 mg/dL (1.8-2.4); Potassium 3.6 mmol/L (3.5-5.1)
[2019-03-26] MEDS: LEVOTHYROXINE SOD 0.075 MG TAB PO SCH (06:10)
[2019-03-26] MEDS: INSULIN -REGULAR HUMAN 50 UNIT/0.5 ML ML SQ SCH ×4 (07:30→21:00)
[2019-03-26] MEDS: ACETIC ACID 0.25% IRRIG TOP SCH ×2 (09:00→21:31)
[2019-03-26] MEDS: METRONIDAZOLE TOP SCH (09:00)
[2019-03-26] MEDS: SKIN CLEANSR TOP SCH (09:00)
[2019-03-26] MEDS ORDERED: GLUCERNA 1.5 CAL 1,000 ML BOT RTH SCH (10:00)
[2019-03-26] MEDS: THIAMINE 200 MG/2 ML INJ IVP SCH (10:44)
[2019-03-26] MEDS: CEFEPIME/SWI 1gm 10 ML IVP SCH (10:44)
[2019-03-26] MEDS: SERTRALINE HCL 50 MG TAB PO SCH (10:44)
[2019-03-26] MEDS: ENOXAPARIN 40 MG/0.4 ML SQ SCH (10:46)
[2019-03-26] MEDS: D5W 1,000 ML IV SCH (10:58)
--- NOTE | 2019-03-26 15:36 | PN ---
Date of Progress Note: 03/26/2019 Subjective: Patient is seen and examined. Chart reviewed and case discussed with RN and family as w ell as Dr. Castillo. Patient had Dobhoff placed yesterday and feeds were started. She did have some desaturation after patient was being sent by the family and had to be placed on Venturi mask. Chey nues to be hypoxic requiring supplemental oxygenation. Medication List: Reviewed. Physical Examination: Vital Signs: Temperature 99.5, T-max was 100.6, pulse 80, blood pressure 116/50, respirations 17, O2 at 100% on 15 L via Venturi mask. General: Awake, alert, oriented, appears to be in some mild distress. Elderly female, lethargic, il l appearing. CV: S1, S2. Regular rate and rhythm. Peripheral pulses present. Respiratory: Diminished breath sounds at the bases. No wheezing or stridor. Gastrointestinal: Abdomen is soft, nontender, nondistended. Positive bowel sounds. Extremities: No clubbing or cyanosis. Patient does have lower extremity edema. Skin: Patient has fungating masses of melanoma lesions on bilateral lower extremities, wrapped. Neurologic: Nonfocal. Patient's speech is normal. Moves all 4 extremities. No focal neurological deficit. Laboratory Data: Sodium 147, potassium 3.6, chloride 116, CO2 of 24, BUN 9, creatinine 0.67, glucose 130, calcium 9, magnesium 1.9. WBC 12.5, H and H of 8 and 24.4, platelets 303, neutrophils 75%. Bl ood cultures, no growth to date. KUB shows feeding tube in place. Assessment And Plan: A 78-year-old female with: 1.Acute metabolic encephalopathy, resolved. Patient is back to her baseline. 2.Pneumonia, bibasilar, likely due to worsening atelectasis. Patient has been bed-bound, not workin g with PT. Continue with broad-spectrum IV antibiotics. Follow up on cultures. Patient did have so me low-grade fevers overnight. 3.Generalized weakness. Patient was started on tube feeds and we will encourage working with PT. 4.Status post fall. 5.Hypomagnesemia. We will replace and monitor. 6.Transverse lumbar process fracture closed with delayed healing, subsequent encounter, stable. 7.Left lower extremity cellulitis complicated with tumors of the extremity with malignant melanoma. We will continue with IV antibiotics and follow up on cultures and continue with wound care. 8.Deep venous thrombosis prophylaxis with Lovenox. 9.Acute respiratory distress likely secondary to pneumonia. Patient currently on Venturi mask. Continue monitoring in the ICU setting. I had a long discussion with the family members. It seems t hat the patient has lost a will to continue on. She is depressed. She is on Zoloft, however, she to ld her daughter yesterday that she does not want to live anymore. She is not actively suicidal, mcneal alfonso, does not wish to participate in PT, does not wish to eat, and is emotionally detached. Patient may benefit from palliative care. I have spoke to the family, who will make a decision. Overall gua rded prognosis. /MODBernard Voice ID: [id number] Report ID: [id number]
[2019-03-26 16:11] LABS: Absolute Lymphocytes (CBC) 2.4 K/uL (0.7-4.9); Basophils % 0.9 % (0-1.3); Hematocrit 24.9 % (36.0-45.0); Lymphocytes % 20.9 % (15.3-44.8); MPV 9.5 fL (7.6-11.3); RBC Red Blood Cell Count 2.86 M/uL (3.86-4.86)
[2019-03-26 16:27] LABS: Potassium 3.4 mmol/L (3.5-5.1)
[2019-03-26 16:28] LABS: Arterial Blood Carboxyhemoglob 1.3 % (0-1.5); Blood Gas Oxyhemoglobin 94.4 % (94-97); Blood O2 Saturation 96.2 % (92-98.5)
[2019-03-26] MEDS: KCL 20 MEQ/100 mL IVPB 20 MEQ/100 ML BAG IV SCH ×2 (19:50→21:33)
[2019-03-26] MEDS: VANCOMYCIN 1.25 GM in NA CHLORIDE 0.9% 250 ML IVPB SCH (21:30)
[2019-03-27] MEDS: D5W 1,000 ML IV SCH (01:58)
[2019-03-27 05:46] LABS: Absolute Lymphocytes (CBC) 2.2 K/uL (0.7-4.9); Basophils % 0.6 % (0-1.3); Hematocrit 24.5 % (36.0-45.0); Lymphocytes % 21.4 % (15.3-44.8); RBC Red Blood Cell Count 2.86 M/uL (3.86-4.86)
[2019-03-27 06:01] LABS: Potassium 3.5 mmol/L (3.5-5.1)
[2019-03-27 06:06] VITALS: BMI 26.5
[2019-03-27] MEDS: LEVOTHYROXINE SOD 0.075 MG TAB PO SCH (06:23)
[2019-03-27] MEDS ORDERED: POTASSIUM 25 MEQ EFFERV TAB PO ONE (07:00)
[2019-03-27] MEDS: INSULIN -REGULAR HUMAN 50 UNIT/0.5 ML ML SQ SCH ×3 (07:30→18:02)
--- NOTE | 2019-03-27 08:48 | RAD REPORT ---
EXAM DESCRIPTION: US - UPPER EXTREMITY VENOUS UNILATE - 03/26/2019 10:06 pm CLINICAL HISTORY: Right arm pain and swelling Preliminary findings provided at the time of the study. COMPARISON: None. TECHNIQUE: Real-time sonographic evaluation of the right upper extremity deep venous systems was per formed. FINDINGS: Normal compressibility, flow augmentation, phasic flow and spontaneous flow are identified in the right upper extremity deep venous system. No intraluminal filling defects seen. Internal jugu lar and subclavian veins are normal as well. IMPRESSION: No DVT in the right upper extremity.
[2019-03-27] MEDS: ACETIC ACID 0.25% IRRIG TOP SCH ×2 (09:00→21:00)
[2019-03-27] MEDS: THIAMINE 200 MG/2 ML INJ IVP SCH (09:18)
[2019-03-27] MEDS: CEFEPIME/SWI 1gm 10 ML IVP SCH (09:18)
[2019-03-27] MEDS: SERTRALINE HCL 50 MG TAB PO SCH (09:19)
[2019-03-27] MEDS: ENOXAPARIN 40 MG/0.4 ML SQ SCH (09:20)
--- NOTE | 2019-03-27 10:56 | PN ---
Date of Progress Note: 03/27/2019 Patient seen and examined. Chart reviewed and case discussed with RN. No family at the bedside. The patient is more alert and awake today. Medications: List reviewed. Physical Examination: Vital Signs: Temperature 97.1, heart rate 80, blood pressure 134/52, respirations 23. O2 100% on 2 L via nasal cannula. General: Alert and oriented x2. Elderly female, somewhat ill-appearing. Lethargic. CV: S1, S2. Regular rate and rhythm. Peripheral pulses present. Respiratory: Diminished breath sounds at the bases. Patient is tachypneic. No use of accessory mus cles . Gastrointestinal: Abdomen is soft, nontender, nondistended. Positive bowel sounds. Extremities: No clubbing, cyanosis. The patient does have peripheral edema. Neurologic: Nonfocal. Laboratory Data: Sodium 141, potassium 3.5, chloride 110, CO2 of 24, BUN 7, creatinine 0.67, glucose 221, calcium 8.8. WBC 10.3, H and H 8.3, 24.5, platelets 307. DVT of the upper extremity shows no DVT. Assessment And Plan: A 78-year-old female with: 1.Acute metabolic encephalopathy, resolving. Patient is lethargic, however, does cooperate and foll ow commands. 2.Bibasilar pneumonia with worsening atelectasis. We will continue with IV antibiotics. Appreciate Dr. Castillo's input. Follow up on culture results. 3.Generalized weakness. Continue with PT. The patient has not really been cooperating with PT. 4.Status post fall. 5.Hypomagnesemia, we will replace and monitor. 6.Transverse lumbar process fracture closed with delayed healing, subsequent encounter stable. 7.Acute respiratory distress secondary to pneumonia, improved. Possibility of aspiration. _. 8.Deep venous thrombosis prophylaxis with Lovenox. Plan: We will step down from ICU. The patient now on nasal cannula. The patient will need speech t herapy evaluation. We will continue with tube feedings for now. Overall, guarded prognosis. Would recommend palliative care for this patient. /WILFREDO Voice ID: [id number] Report ID: [id number]
[2019-03-27] MEDS ORDERED: GLUCAGON 1 MG/VIAL IM PRN (12:39)
[2019-03-27] MEDS ORDERED: D50W 25 GM/50 ML SYRINGE IV PRN (12:39)
[2019-03-27] MEDS ORDERED: VANCOMYCIN 1.5 GM in NA CHLORIDE 0.9% 500 ML IVPB SCH ×4 (21:00)
[2019-03-28] MEDS: INSULIN -REGULAR HUMAN 50 UNIT/0.5 ML ML SQ SCH ×3 (00:43→12:43)
[2019-03-28] MEDS: LEVOTHYROXINE SOD 0.075 MG TAB PO SCH (06:25)
[2019-03-28 06:48] LABS: Potassium 3.8 mmol/L (3.5-5.1)
[2019-03-28] MEDS: ENOXAPARIN 40 MG/0.4 ML SQ SCH (09:31)
[2019-03-28] MEDS: SERTRALINE HCL 50 MG TAB PO SCH (09:31)
[2019-03-28] MEDS: THIAMINE 200 MG/2 ML INJ IVP SCH (09:31)
[2019-03-28] MEDS: CEFEPIME/SWI 1gm 10 ML IVP SCH (09:37)
[2019-03-28 11:12] VITALS: O2SAT 94
--- NOTE | 2019-03-28 12:39 | RAD REPORT ---
EXAM DESCRIPTION: RAD - Barium Swallow Modified - 03/28/2019 12:30 pm CLINICAL HISTORY: Aspiration, CVA COMPARISON: None. TECHNIQUE: The patient was given liquid, semi-solid and solid forms of barium. Lateral view fluorosc opic imaging was performed in conjunction with speech pathology service. FINDINGS: Cineloop acquisitions: 18 Fluoro time: 3 minutes 8 seconds Laryngeal penetration; cleared with thin and nectar Pharyngeal residue: Mild in Vallecular and Pyriform with thin, nectar, honey, and clears pudding on s ubsequent swallows. NG tube limiting pharyngoesophageal space, sight delay in pharyngeal transit. Barium tablet cleared after 1 sec hang up in pyriform sinus. IMPRESSION: Modified barium swallow as summarized above and fully detailed on speech pathology papito thakur
[2019-03-28 17:03] VITALS: BP 143/65; TEMP 97.3
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
== END 2019-03-28 17:37 | disposition hospice, inpatient (51) | DRG 193 ==
LOC: ER 11:34 → ERHOLD 15:07 → OBSVTOIN 15:07 → INTOOBSV 15:07 → 4TH 15:41 → 3RD-ICU 03-24 19:40 → OBSVTOIN 03-25 06:53 → 4TH 03-27 14:10
PROVIDERS: ADMIT Family Medicine; ATTEND Family Medicine
PROC: 02HV33Z Insertion of Infusion Device into Superior Vena Cava, Percutaneous Approach (ICD-10-PCS; principal; 2019-03-25)
DX: J18.9 Pneumonia, unspecified organism (principal); G93.41 Metabolic encephalopathy; L03.116 Cellulitis of left lower limb; J98.11 Atelectasis; E46 Unspecified protein-calorie malnutrition; R06.03 Acute respiratory distress; R09.02 Hypoxemia; C43.72 Malignant melanoma of left lower limb, including hip; C43.71 Malignant melanoma of right lower limb, including hip; R25.1 Tremor, unspecified; E11.9 Type 2 diabetes mellitus without complications; I10 Essential (primary) hypertension; E03.9 Hypothyroidism, unspecified; E83.42 Hypomagnesemia; S32.009G Unspecified fracture of unspecified lumbar vertebra, subsequent encounter for fracture with delayed healing; R62.7 Adult failure to thrive; F32.9 Major depressive disorder, single episode, unspecified; Z68.26 Body mass index [BMI] 26.0-26.9, adult; Z96.642 Presence of left artificial hip joint
CPT/HCPCS: 36415; 51702; 70450; 70551; 71045; 74018; 74230; 80048; 80053; 80076; 80202; 81003; 81015; 82550; 82553; 82805; 82962; 83605; 83690; 83735; 83880; 84100; 84132; 84145; 84439; 84443; 84484; 85025; 85610; 85730; 87040; 87086; 87088; 92610; 92611; 93005; 93970; 93971; 94760; 96365; 96366; 97112; 97162; 97530; 99251; 99285; J0692; J0696; J1650; J3411; J3475; J7030

== ENCOUNTER 2019-03-28 17:43 | Inpatient (IN) | payer OTHER ==
[2019-03-28] MEDS ORDERED: MORPHINE 2 MG/ML SYR IV PRN (18:17)
[2019-03-28] MEDS ORDERED: LORazepam 2 MG/ML VIAL IV PRN (18:18)
[2019-03-28] MEDS ORDERED: BISACODYL 10 MG RECTAL SUPP PR PRN (18:18)
[2019-03-28] MEDS ORDERED: ONDANSETRON 4 MG/2 ML VIAL IV PRN (18:19)
[2019-03-28] MEDS ORDERED: ACETAMINOPHEN 325 MG/SUPP PR PRN (18:19)
[2019-03-28] MEDS ORDERED: HYOSCYAMINE SULF 0.125 MG TAB PO PRN ×2 (18:21→20:00)
[2019-03-28] MEDS ORDERED: ACETAMINOPHEN 650MG/RECT SUPP PR PRN (18:39)
[2019-03-28] MEDS: DOXYCYCLINE 100 MG CAP PO SCH (21:58)
[2019-03-29 00:28] VITALS: BMI 26.4
[2019-03-29] MEDS: DOXYCYCLINE 100 MG CAP PO SCH (09:00)
[2019-03-29 11:39] VITALS: O2SAT 95
[2019-03-29 17:05] VITALS: BP 152/63; TEMP 98
== END 2019-03-29 16:33 | disposition hospice, inpatient (51) | DRG 951 ==
LOC: 4TH 17:43
PROVIDERS: ADMIT Family Medicine; ATTEND Family Medicine
DX: Z51.5 Encounter for palliative care (principal); C43.9 Malignant melanoma of skin, unspecified